=== PATIENT | male | born 1965 | race Caucasian/White ===

== ENCOUNTER → 2024-04-16 | Outpatient (CLI) | payer MEDICAID, SELFPAY ==
--- NOTE | 2024-04-16 13:30 | XR_ITS ---
Examination: MRI cervical spine without intravenous contrast Date and time of exam: April 16, 2024 at 1317 hrs. Indications: Right-sided neck pain radiating to the right shoulder beginning 3 months ago Technique: Multiple axial and sagittal sections of the cervical spine to been obtained. T2 weighted sagittal sections, TR 3, 270, TE 117 T1-weighted sagittal sections, TR 500, TE 11 T1-weighted axial sections, TR 607, TE 12, axial sections TR 18, TE 27 and T2 weighted transverse sections, TR 3920, TE 122. Findings: Patient motion significantly degrades scan image quality Patient requested ending the examination prior to completion of axial diagnostic images Moderate disc narrowing C6-C7 Diffuse cervical disc desiccation No cervical fracture Intact odontoid C6-C7 4 mm cervical disc bulge indenting the ventral margin cervical cord No localized enlargement cervical cord Impression: Limited study as above Consider repeat MRI cervical spine examination including axial images preceded by intravenous conscious sedation
== END | disposition home or self-care (01) ==
LOC: SMRI 13:05
PROVIDERS: PCP Physician Assistant Medical; Referring Provider Family Medicine; Visit Provider Family Medicine
DX: M47.22 Other spondylosis with radiculopathy, cervical region (principal)
CPT/HCPCS: 72141

== ENCOUNTER 2024-04-25 16:16 | Emergency (ER) | payer MEDICAID, SELFPAY ==
[2024-04-25 16:22] VITALS: BP 140/89; PULSE 118; RESP 19; TEMP 36.8; O2SAT 100
[2024-04-25 16:27] VITALS: BMI 40.8
--- NOTE | 2024-04-25 17:17 | PC.NURSE ---
called for pt from lobby/outside, no [id number]
--- NOTE | 2024-04-25 17:51 | PD.EDBACK ---
ED Back Injury Pain RME/HPI General Stated Complaint: BACK PAIN Time Seen by Provider: 04/25/24 16:43 Arrival date/time: 04/25/24 16:16 59-year-old male with a history of chronic lower back pain reports with complaints of severe back pain that radiates to the bilateral lower extremities. Patient states that he is on gabapentin and Flexeril and ibuprofen for pain. Patient states that he is out of the ibuprofen he tried the gabapentin and the Flexeril with no improvement of symptoms. He reports the pain is a burning sensation going down both legs causing difficulty in walking but he denies changes in bowel or bladder habits numbness tingling decreased range of motion or weakness of the lower extremities. Limitations: no limitations Related Data Home Medications ?Medication ?Instructions ?Recorded ?Confirmed baclofen 20 mg tablet 20 mg PO TID PRN Pain 12/31/20 12/31/20 Previous Rx's ?Medication ?Instructions ?Recorded naproxen 500 mg tablet (Naprosyn) 500 mg PO BID PRN pain #30 tabs 03/04/20 amoxicillin 875 mg-potassium 1 tab PO BID #20 tabs 12/30/20 clavulanate 125 mg tablet (Augmentin) baclofen 20 mg tablet 20 mg PO TID PRN pain #30 tabs 02/23/21 albuterol sulfate 90 mcg/actuation 2 puff inhalation QID PRN 03/14/21 aerosol inhaler shortness of breath or wheezing #8.5 grams azithromycin 250 mg tablet See Rx Instructions PO .COMPLEX #6 03/14/21 tabs dextromethorphan-guaifenesin 10 10 ml PO Q8H PRN cough #500 mL 03/31/21 mg-100 mg/5 mL oral liquid hydrocodone 5 mg-acetaminophen 325 1 tab PO BID #10 tabs 10/10/21 mg tablet naproxen 500 mg tablet (Naprosyn) 500 mg PO BID #30 tabs 10/10/21 hydrocodone 5 mg-acetaminophen 325 1 tab PO TID PRN pain #20 tabs 10/13/21 mg tablet hydrocodone 5 mg-acetaminophen 325 1 tab PO BID PRN pain #6 tabs 10/16/22 mg tablet ibuprofen 800 mg tablet 800 mg PO TID PRN pain #30 tabs 10/16/22 doxycycline monohydrate 100 mg 100 mg PO BID #14 caps 03/20/23 capsule apixaban 5 mg (74 tabs) tablets in 10 mg (2 x 5 mg (74 tabs)) PO BID 10/25/23 a dose pack #74 tabs prednisone 50 mg tablet 50 mg PO QDAY #7 tabs 10/25/23 methylprednisolone 4 mg tablets in See Rx Instructions .Route 04/25/24 a dose pack (Medrol (Dg)) .COMPLEX #21 tabs Allergies Allergy/AdvReac Type Severity Reaction Status Date / Time No Known Allergies Allergy Verified 10/25/23 18:12 Past Medical History Past Medical History CARDIAC: Positive Hypercholesterolemia and Deep Vein Thrombosis; Negative Cardiac Disorders or Congestive Heart Failure RESPIRATORY: Positive Pulmonary Embolism; Negative Chronic Obstructive Pulmonary Disease (COPD) or Asthma GENITOURINARY: Negative Renal Disease MUSCULOSKELETAL: Positive Degenerative Disk Disease ENDOCRINE: Positive Hypothyroidism; Negative Diabetes Mellitus Type 1 or Diabetes Mellitus Type 2 HEMATOLOGIC: Negative Sickle Cell Disease Social History SMOKING STATUS: Never smoker SUBSTANCE USE: does not use ED Exam General Limitations: Present no limitations General appearance: Present alert and in no apparent distress Chest Chest inspection: Present normal inspection and symmetric chest wall rise Respiratory Respiratory exam: Present normal lung sounds bilaterally Cardiovascular Cardiovascular exam: Present regular rate, normal rhythm and normal heart sounds Abdominal Exam Abdominal exam: Present soft and normal bowel sounds Extremities Exam Extremities exam: Present normal inspection and full ROM Back Exam Back exam: Present normal inspection, full ROM, tenderness (Approximately L4-L5 extending along sciatic nerve to mid thigh right side and mid buttock left side), paraspinal tenderness, straight leg raise (R) and straight leg raise (L); Absent CVA tenderness (R), CVA tenderness (L) or vertebral tenderness Neurological Exam Neurological exam: Present alert, oriented X3 and CN II-XII intact Psychiatric Psychiatric exam: Present normal affect and normal mood Skin Skin exam: Present warm, dry, intact and normal color Course Course Course Narrative: 59-year-old male with a history of chronic lower back pain bilateral lower extremity radiculopathy reports with complaints of worsening lower back pain. Patient states that current medication of Flexeril and gabapentin is not reducing the pain. Patient received a Decadron injection here in the emergency department and will be sent home with a short course of steroids and advised to avoid NSAIDs he is also advised to follow-up with his primary care provider. Patient stable nontoxic-appearing with stable vitals. Quality Measures none Orders Category Date Time Status Dexamethasone Inj [Decadron Inj] Med 04/25/24 17:50 Discontinued 10 mg IM X1 ONE Vital Signs Vital signs: Vital Signs Temperature 98.3 F 04/25/24 16:22 Pulse Rate 118 H 04/25/24 16:22 Respiratory Rate 19 04/25/24 16:22 Blood Pressure 140/89 H 04/25/24 16:22 Pulse Oximetry (%) 100 04/25/24 16:22 Oxygen Delivery Method Room Air 04/25/24 16:22 Back Pain / Injury Patient data External records reviewed:: None Clinical information provided by:: patient Social determinants that could affect healthcare access:: none Patient has the following chronic illnesses:: Chronic lower back pain How is presenting disease/condition affected by chronic disease/condition?: caused by Evaluation data The following diagnostics were reviewed and interpreted by me:: other (specify) (None) Lab and/or radiology exams considered but not ordered:: None Interpretation Summary: N/A Medications / Prescriptions Medications or Prescriptions considered but not ordered:: None Medication administrations:: Medication Administration History Discontinued Medications Dexamethasone Sodium Phosphate (Dexamethasone Sod Phos Inj 10 Mg/Ml Vial) 10 mg IM X1 ONE Stop: 04/25/24 17:51 As above Consultations Consultation(s) initiated? (list below): No Diagnosis Most likely diagnosis given after review of the tests above:: Chronic lower back pain Admission Indicated Admission indicated?: not indicated Admission Request Was there a request for admission?: No Disposition Plan Disposition Plan: Discharge Discharge Attestation Discharge Attestation: The patient and all family members were given an opportunity to ask questions and understood the discharge instructions. Discharge instructions specifically effects, indications for sooner follow up or return to the emergency department, and the expected course of current diagnosis. Patient condition: Stable Discharge Plan Plan Patient Disposition: HOME (Self Care) Prescriptions/Referrals Prescriptions/Med Rec: New methylprednisolone [Medrol (Dg)] 4 mg tablets,dose pack See Rx Instructions .ROUTE .COMPLEX Qty: 21 0RF Rx Instructions: TAKE DIRECTED ON PACK No Action naproxen [Naprosyn] 500 mg tablet 500 mg PO BID PRN (Reason: pain) Qty: 30 0RF amoxicillin-pot clavulanate [Augmentin] 875-125 mg tablet 1 tab PO BID Qty: 20 0RF baclofen 20 mg tablet 20 mg PO TID PRN (Reason: Pain) hydrocodone-acetaminophen 5-325 mg tablet 1 tab PO TID MDD 3 PRN (Reason: pain) Qty: 20 0RF baclofen 20 mg tablet 20 mg PO TID PRN (Reason: pain) Qty: 30 0RF azithromycin 250 mg tablet See Rx Instructions .ROUTE .COMPLEX Qty: 6 0RF Rx Instructions: For 250 mg dose pack: take 500 mg today (day 1), then 250 mg for 4 days (days 2-5) albuterol sulfate 90 mcg/actuation HFA aerosol inhaler 2 puff inhalation QID PRN (Reason: shortness of breath or wheezing) Qty: 8.5 0RF dextromethorphan-guaifenesin 10-100 mg/5 mL liquid 10 ml PO Q8H PRN (Reason: cough) Qty: 500 0RF naproxen [Naprosyn] 500 mg tablet 500 mg PO BID Qty: 30 0RF hydrocodone-acetaminophen 5-325 mg tablet 1 tab PO BID MDD 2 Qty: 10 0RF ibuprofen 800 mg tablet 800 mg PO TID PRN (Reason: pain) Qty: 30 0RF hydrocodone-acetaminophen 5-325 mg tablet 1 tab PO BID MDD 10 PRN (Reason: pain) Qty: 6 0RF prednisone 50 mg tablet 50 mg PO QDAY Qty: 7 0RF doxycycline monohydrate 100 mg capsule 100 mg PO BID Qty: 14 0RF apixaban 5 mg (74 tabs) tablets,dose pack 10 mg PO BID Qty: 74 0RF Rx Instructions: 2 tablets twice a day for 1 week and then 5 mg once a day Problem List Clinical Impression: Chronic back pain Patient/Caregiver Discharge Instructions Education Materials: ED Back Care Tips Additional Instructions: Do not take ibuprofen or naproxen or Advil or Aleve or Motrin or aspirin for the next 10 days, take the steroid prescribed to you along with the Flexeril for your back pain follow-up with your primary care provider as needed Print Language: Portuguese Stand Alone Forms: Jos[facility] Award Info., Patient Portal Info Letter
[2024-04-25] MEDS: DEXAMETHASONE SOD PHOS INJ 10 MG/ML VIAL IM (18:15)
== END 2024-04-25 18:43 | disposition home or self-care (01) ==
LOC: SERX 18:18
PROVIDERS: Emergency Provider Emergency Medicine
DX: G89.29 Other chronic pain (principal); M54.50 Low back pain, unspecified
CPT/HCPCS: 96372; 99283; J1100

== ENCOUNTER → 2024-05-18 | Outpatient (CLI) | payer MEDICAID, SELFPAY ==
--- NOTE | 2024-05-18 14:30 | XR_ITS ---
Examination: MRI lumbar spine without contrast Date and time of exam: May 18, 2024 1545 hours Comparison March 21, 2021 INDICATIONS: Low back pain years, more severe the last year radiating down both legs Technique: Multiple MRI axial and sagittal sections lumbar spine. Sagittal T2-weighted images, TR 3500, TE 118 T1 weighted transverse sections, TR 688 T8.5, T2-weighted sagittal sections T1 weighted sagittal sections TR 621, TE 30 T2 axial sections, TR 4, 190, TE 84. Findings: Minimal anterolisthesis L4 on L5, 3 mm No lumbar fracture Mild disc narrowing L5-S1 No spondylolisthesis L5-S1 no disc protrusion L4-L5 3 mm central lumbar disc bulge L3-L4 2 mm central lumbar disc bulge L2-L3 no disc protrusion L1-L2 no disc protrusion IMPRESSION: Small lumbar disc bulges as above
== END | disposition home or self-care (01) ==
PROVIDERS: PCP Physician Assistant Medical; Referring Provider Family Medicine; Visit Provider Family Medicine
DX: M51.369 Other intervertebral disc degeneration, lumbar region without mention of lumbar back pain or lower extremity pain (principal)
CPT/HCPCS: 72148

== ENCOUNTER 2024-11-22 22:30 | Emergency (ER) | payer MEDICAID, SELFPAY ==
[2024-11-22 22:30] VITALS: BMI 38.2
--- NOTE | 2024-11-22 22:40 | XR_ITS ---
Examination: Duplex scan of the lower extremity, unilateral right Date and time of exam: November 22, 2024, 11:15 p.m. INDICATIONS: Right leg pain beginning 2 days ago, history blood clots Technique: Duplex scan of the extremity veins using B-mode/grayscale imaging and Doppler spectral analysis and color flow Attention is directed to internal echogenicity, compression and augmentation involving these veins, color flow assessment, spectral analysis Findings: Suspicious for occlusive thrombus in the right peroneal vein No diagnostic visualization of the right posterior tibial vein IMPRESSION: No flow seen in the right peroneal vein suspicious for thrombus Recommend repeating the venogram study in the a.m. with a different technologist
[2024-11-22 22:54] VITALS: BP 113/70; PULSE 55; RESP 18; TEMP 37.2; O2SAT 97
--- NOTE | 2024-11-22 23:09 | PD.EDBACK ---
ED Back Injury Pain RME/HPI General Chief Complaint: Extremity Injury, Lower Stated Complaint: SCIATIC PAIN RT LEG Time Seen by Provider: 11/22/24 23:04 Arrival date/time: 11/22/24 22:30 59M with history of DVT/PE presents to ED with low back pain that radiates down to RLE. Patient is currently on 5 mg Eliquis BID, which patient states he's complaint with. Limitations: no limitations Related Data Home Medications ?Medication ?Instructions ?Recorded ?Confirmed baclofen 20 mg tablet 20 mg PO TID PRN Pain 12/31/20 12/31/20 Previous Rx's ?Medication ?Instructions ?Recorded naproxen 500 mg tablet (Naprosyn) 500 mg PO BID PRN pain #30 tabs 03/04/20 amoxicillin 875 mg-potassium 1 tab PO BID #20 tabs 12/30/20 clavulanate 125 mg tablet (Augmentin) baclofen 20 mg tablet 20 mg PO TID PRN pain #30 tabs 02/23/21 albuterol sulfate 90 mcg/actuation 2 puff inhalation QID PRN 03/14/21 aerosol inhaler shortness of breath or wheezing #8.5 grams azithromycin 250 mg tablet See Rx Instructions PO .COMPLEX #6 03/14/21 tabs dextromethorphan-guaifenesin 10 10 ml PO Q8H PRN cough #500 mL 03/31/21 mg-100 mg/5 mL oral liquid hydrocodone 5 mg-acetaminophen 325 1 tab PO BID #10 tabs 10/10/21 mg tablet naproxen 500 mg tablet (Naprosyn) 500 mg PO BID #30 tabs 10/10/21 hydrocodone 5 mg-acetaminophen 325 1 tab PO TID PRN pain #20 tabs 10/13/21 mg tablet hydrocodone 5 mg-acetaminophen 325 1 tab PO BID PRN pain #6 tabs 10/16/22 mg tablet ibuprofen 800 mg tablet 800 mg PO TID PRN pain #30 tabs 10/16/22 doxycycline monohydrate 100 mg 100 mg PO BID #14 caps 03/20/23 capsule apixaban 5 mg (74 tabs) tablets in 10 mg (2 x 5 mg (74 tabs)) PO BID 10/25/23 a dose pack #74 tabs prednisone 50 mg tablet 50 mg PO QDAY #7 tabs 10/25/23 methylprednisolone 4 mg tablets in See Rx Instructions .Route 04/25/24 a dose pack (Medrol (Dg)) .COMPLEX #21 tabs Allergies Allergy/AdvReac Type Severity Reaction Status Date / Time No Known Allergies Allergy Verified 10/25/23 18:12 Review of Systems Review of Systems Systems Reviewed: All systems reviewed, normal except as documented Musculoskeletal Musculoskeletal: Reports as per HPI, Reports back pain and Reports radiating pain into limb Past Medical History Past Medical History CARDIAC: Positive Hypercholesterolemia and Deep Vein Thrombosis; Negative Cardiac Disorders or Congestive Heart Failure RESPIRATORY: Positive Pulmonary Embolism; Negative Chronic Obstructive Pulmonary Disease (COPD) or Asthma GENITOURINARY: Negative Renal Disease MUSCULOSKELETAL: Positive Degenerative Disk Disease ENDOCRINE: Positive Hypothyroidism; Negative Diabetes Mellitus Type 1 or Diabetes Mellitus Type 2 HEMATOLOGIC: Negative Sickle Cell Disease Social History SMOKING STATUS: Current every day smoker SUBSTANCE USE: does not use ED Exam General Limitations: Present no limitations General appearance: Present alert and in no apparent distress Head Head exam: Present atraumatic Neck Neck exam: Present normal inspection, full ROM and trachea midline Chest Chest inspection: Present normal inspection and symmetric chest wall rise Neurological Exam Neurological exam: Present alert and oriented X3 Psychiatric Psychiatric exam: Present normal affect and normal mood Skin Skin exam: Present warm, dry, intact and normal color Course Quality Measures none Orders Category Date Time Status US venous doppler LE RT Stat Exams 11/22/24 22:40 Completed Diazepam [Valium] Med 11/22/24 23:04 Discontinued 10 mg PO X1 ONE Morphine Oral LIQUID Med 11/23/24 00:08 Once 10 mg PO X1 ONE Vital Signs Vital signs: Vital Signs Temperature 98.9 F 11/22/24 22:54 Pulse Rate 55 L 11/22/24 22:54 Respiratory Rate 18 11/22/24 22:54 Blood Pressure 113/70 11/22/24 22:54 Pulse Oximetry (%) 97 11/22/24 22:54 Oxygen Delivery Method Room Air 11/22/24 22:54 O2 at 97% on RA and WNLs Back Pain / Injury MDM Narrative MDM Narrative:: 59M with history of DVT/PE presents to ED with low back pain that radiates down to RLE. Patient is currently on 5 mg Eliquis BID, which patient states he's complaint with. Physical exam reveals uncomfortable-appearing male. Patient is afebrile and alert. US possible DVT, with recommendation to return in AM for repeat US. Valium improved muscle spasms, but there's still pain. Patient would like Toradol, however given patient on Eliquis, will given morphine. Patient data External records reviewed:: [facility] previous records Clinical information provided by:: patient Social determinants that could affect healthcare access:: none Patient has the following chronic illnesses:: DVT How is presenting disease/condition affected by chronic disease/condition?: exacerbated by Evaluation data The following diagnostics were reviewed and interpreted by me:: radiology exam(s) Lab and/or radiology exams considered but not ordered:: ordered Interpretation Summary: above Medications / Prescriptions Medications or Prescriptions considered but not ordered:: ordered Medication administrations:: Medication Administration History Morphine Sulfate (Morphine Sulf Liqd 10 Mg/5 Ml Udc) 10 mg PO X1 ONE Stop: 11/23/24 00:09 Discontinued Medications Diazepam (Diazepam 5 Mg Tablet) 10 mg PO X1 ONE Stop: 11/22/24 23:05 Last Admin: 11/22/24 23:16 Dose: 10 mg Documented By: AMANDA gates Consultations Consultation(s) initiated? (list below): No Diagnosis Differential diagnosis back pain/injury: lumbar radiculopathy, sciatica, strain of lumbar region, renal colic, pyelonephritis, thoracic back pain, AAA, discitis and other (DVT, leg pain) Most likely diagnosis given after review of the tests above:: leg pain Admission Indicated Admission indicated?: not indicated Admission Request Was there a request for admission?: No Disposition Plan Disposition Plan: Discharge Discharge Attestation Discharge Attestation: The patient and all family members were given an opportunity to ask questions and understood the discharge instructions. Discharge instructions specifically effects, indications for sooner follow up or return to the emergency department, and the expected course of current diagnosis. Patient condition: Stable Discharge Plan Plan Patient Disposition: HOME (Self Care) Discharge Disposition comment: Stable Prescriptions/Referrals Prescriptions/Med Rec: No Action naproxen [Naprosyn] 500 mg tablet 500 mg PO BID PRN (Reason: pain) Qty: 30 0RF amoxicillin-pot clavulanate [Augmentin] 875-125 mg tablet 1 tab PO BID Qty: 20 0RF baclofen 20 mg tablet 20 mg PO TID PRN (Reason: Pain) hydrocodone-acetaminophen 5-325 mg tablet 1 tab PO TID MDD 3 PRN (Reason: pain) Qty: 20 0RF baclofen 20 mg tablet 20 mg PO TID PRN (Reason: pain) Qty: 30 0RF azithromycin 250 mg tablet See Rx Instructions .ROUTE .COMPLEX Qty: 6 0RF Rx Instructions: For 250 mg dose pack: take 500 mg today (day 1), then 250 mg for 4 days (days 2-5) albuterol sulfate 90 mcg/actuation HFA aerosol inhaler 2 puff inhalation QID PRN (Reason: shortness of breath or wheezing) Qty: 8.5 0RF dextromethorphan-guaifenesin 10-100 mg/5 mL liquid 10 ml PO Q8H PRN (Reason: cough) Qty: 500 0RF naproxen [Naprosyn] 500 mg tablet 500 mg PO BID Qty: 30 0RF hydrocodone-acetaminophen 5-325 mg tablet 1 tab PO BID MDD 2 Qty: 10 0RF ibuprofen 800 mg tablet 800 mg PO TID PRN (Reason: pain) Qty: 30 0RF hydrocodone-acetaminophen 5-325 mg tablet 1 tab PO BID MDD 10 PRN (Reason: pain) Qty: 6 0RF prednisone 50 mg tablet 50 mg PO QDAY Qty: 7 0RF methylprednisolone [Medrol (Dg)] 4 mg tablets,dose pack See Rx Instructions .ROUTE .COMPLEX Qty: 21 0RF Rx Instructions: TAKE DIRECTED ON PACK doxycycline monohydrate 100 mg capsule 100 mg PO BID Qty: 14 0RF apixaban 5 mg (74 tabs) tablets,dose pack 10 mg PO BID Qty: 74 0RF Rx Instructions: 2 tablets twice a day for 1 week and then 5 mg once a day Referrals: Kylah Franklin PA-C [Primary Care Provider] - In 1 week Problem List Clinical Impression: Leg pain Patient/Caregiver Discharge Instructions Education Materials: ED Myalgias Additional Instructions: Please follow-up with PCP within 24-48 hours and return immediately if symptoms worsen. Return in AM for repeat US. Print Language: [place] Stand Alone Forms: Patient Portal Info Letter OSIEL/ROSI Supervising Physician OSIEL/ROSI Supervising Physician: Dr. Simmons
[2024-11-22] MEDS: DIAZEPAM 5 MG TABLET 10 MG PO (23:16)
[2024-11-23] MEDS: MORPHINE SULF LIQD 10 MG/5 ML UDC PO (00:18)
== END 2024-11-23 00:21 | disposition home or self-care (01) ==
PROVIDERS: Emergency Provider Emergency Medicine; PCP Physician Assistant Medical
DX: M79.604 Pain in right leg (principal)
CPT/HCPCS: 93971; 99283; A9270

== ENCOUNTER 2024-11-24 19:16 | Emergency (ER) | payer MEDICAID, SELFPAY ==
[2024-11-24 19:17] VITALS: BMI 38.2
--- NOTE | 2024-11-24 20:03 | XR_ITS ---
Examination: Duplex scan of the lower extremity, unilateral right complete Date and time of exam: November 24, 2024, 0851 hours INDICATIONS: Right leg swelling beginning 4 days ago, no flow in the right popliteal vein on venogram November 22, 2024 Technique: Duplex scan of the extremity veins using B-mode/grayscale imaging and Doppler spectral analysis and color flow Attention is directed to internal echogenicity, compression and augmentation involving these veins, color flow assessment, spectral analysis Findings: Major deep venous structures in the extremity demonstrate normal course and caliber. There is no evidence of deep vein thrombosis. Normal color flow and spectral analysis Impression: Negative for DVT..
--- NOTE | 2024-11-24 20:03 | PD.EDRME ---
Rapid Medical Screening Exam RME Arrival date/time: 11/24/24 19:16 59M with history of DVT/PE presents to ED with low back pain that radiates down to RLE. Patient is currently on 5 mg Eliquis BID, which patient states he's complaint with. Patient was here several days ago with US stating possible new RLE DVT while on Eliquis. Patient was told to come back for repeat US based on radiologist's recommendation. Patient also wants some Valium for the muscle spasms. Chief Complaint: Extremity Injury, Lower
[2024-11-24 20:05] VITALS: BP 156/84; PULSE 60; RESP 18; TEMP 37.1; O2SAT 97
[2024-11-24] MEDS: DIAZEPAM 5 MG TABLET 10 MG PO (20:33)
[2024-11-24 20:35] LABS: Basophils # (Auto) 0.1 Thou/mm3 (0.0-0.2); Basophils % (Auto) 1 % (0-2.5); Eosinophils # (Auto) 0.5 Thou/mm3 (0.0-0.5); Eosinophils % (Auto) 6 % (0-10); Hematocrit 45.2 % (41.0-53.0); Hemoglobin 15.7 g/dL (13.5-16.0); Immature Granulocytes Auto 0.02 Thou/mm3 (0.00-0.00); Lymphocytes # (Auto) 2.6 Thou/mm3 (1.0-4.8); Lymphocytes % (Auto) 34 % (10-50); Mean Corpuscular HGB Conc 34.7 g/dl (31.0-37.0); Mean Corpuscular Hemoglobin 30.6 pg (25.0-35.0); Mean Corpuscular Volume 88 fL (80-100); Monocytes # (Auto) 0.5 Thou/mm3 (0.0-0.8); Monocytes % (Auto) 7 % (0-12); Neutrophils # (Auto) 3.9 Thou/mm3 (1.8-7.7); Neutrophils % (Auto) 52 % (37-80); Nucleated Red Blood Cell # 0.00 Thou/mm3 (0.00-0.00); Nucleated Red Blood Cell % 0 /100 WBC (0); Platelet Count 190 Thou/mm3 (140-440); RDW Standard Deviation 40.8 fL (35.1-43.9); Red Blood Count 5.13 Miln/mm3 (4.50-5.90); White Blood Count 7.7 Thou/mm3 (3.8-10.6)
[2024-11-24 20:47] LABS: INR 1.0 (0.9-1.3); Partial Thromboplastin Time 28.1 Seconds (22.0-36.0); Prothrombin Time 11.1 Seconds (9.0-12.2)
[2024-11-24 20:56] LABS: Alanine Aminotransferase 26 U/L (10-49); Albumin, Serum 4.5 gm/dL (3.5-5.0); Albumin/Globulin Ratio 1.5 (1.2-2.2); Alkaline Phosphatase 69 U/L (46-116); Anion Gap 6 (7-16); Aspartate Amino Transferase 29 U/L (0-34); BUN/Creatinine Ratio 5 Ratio (12-20); Bilirubin,Total 0.5 mg/dL (0.3-1.2); Blood Urea Nitrogen 6 mg/dL (9-23); Calcium 10.0 mg/dL (8.3-10.6); Calcium (Corrected) 10.0 mg/dL (8.5-10.1); Carbon Dioxide 28.3 mMol/L (20.0-31.0); Chloride 105 mMol/L (98-107); Creatinine (Component) 1.2 mg/dL (0.6-1.3); Estimated Creatinine Clearance 96.6 mL/min (>60); Globulin 3.0 gm/dL (2.3-3.5); Glucose 89 mg/dL (74-106); Osmolality,Calculated 274 (275-295); Potassium 4.0 mMol/L (3.4-5.1); Sodium 139 mMol/L (136-145); Total Protein 7.5 gm/dL (5.7-8.2); eGFR > 60 See Note
--- NOTE | 2024-11-24 22:18 | PD.EDLOWEX ---
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 Patient is currently on 5 mg Eliquis BID, which patient states he's complaint with. Patient was here several days ago with US stating possible new RLE DVT while on Eliquis. Patient was told to come back for repeat US based on radiologist's recommendation. Patient also wants some Valium for the muscle spasms. Patient denies any trauma denies any other complaints no medication was taken prior to ER visit. Related Data Home Medications ?Medication ?Instructions ?Recorded ?Confirmed baclofen 20 mg tablet 20 mg PO TID PRN Pain 12/31/20 12/31/20 Previous Rx's ?Medication ?Instructions ?Recorded naproxen 500 mg tablet (Naprosyn) 500 mg PO BID PRN pain #30 tabs 03/04/20 amoxicillin 875 mg-potassium 1 tab PO BID #20 tabs 12/30/20 clavulanate 125 mg tablet (Augmentin) baclofen 20 mg tablet 20 mg PO TID PRN pain #30 tabs 02/23/21 albuterol sulfate 90 mcg/actuation 2 puff inhalation QID PRN 03/14/21 aerosol inhaler shortness of breath or wheezing #8.5 grams azithromycin 250 mg tablet See Rx Instructions PO .COMPLEX #6 03/14/21 tabs dextromethorphan-guaifenesin 10 10 ml PO Q8H PRN cough #500 mL 03/31/21 mg-100 mg/5 mL oral liquid hydrocodone 5 mg-acetaminophen 325 1 tab PO BID #10 tabs 10/10/21 mg tablet naproxen 500 mg tablet (Naprosyn) 500 mg PO BID #30 tabs 10/10/21 hydrocodone 5 mg-acetaminophen 325 1 tab PO TID PRN pain #20 tabs 10/13/21 mg tablet hydrocodone 5 mg-acetaminophen 325 1 tab PO BID PRN pain #6 tabs 10/16/22 mg tablet ibuprofen 800 mg tablet 800 mg PO TID PRN pain #30 tabs 10/16/22 doxycycline monohydrate 100 mg 100 mg PO BID #14 caps 03/20/23 capsule apixaban 5 mg (74 tabs) tablets in 10 mg (2 x 5 mg (74 tabs)) PO BID 10/25/23 a dose pack #74 tabs prednisone 50 mg tablet 50 mg PO QDAY #7 tabs 10/25/23 methylprednisolone 4 mg tablets in See Rx Instructions .Route 04/25/24 a dose pack (Medrol (Dg)) .COMPLEX #21 tabs Allergies Allergy/AdvReac Type Severity Reaction Status Date / Time No Known Allergies Allergy Verified 10/25/23 18:12 Review of Systems Review of Systems Narrative Review of Systems: Review of system reviewed and within normal limits except mentioned in HPI ED Exam Narrative Physical exam: VITAL SIGNS: Reviewed. GENERAL APPEARANCE: Alert and interactive, follows commands, no acute distress, HEAD AND FACE: Non-traumatic. ENT: PERRL, pink conjunctivitis, eyelid no trauma, Mucous membrane moist. NECK: Supple, nontender, no nuchal rigidity. CHEST: No tenderness, no crepitus, no paradoxical movement, no retractions. LUNGS: Clear, well ventilated, symmetric, no rales, no wheezing, no ronchi, no stridor, good breath sounds bilaterally. HEART: Regular rate, regular rhythm, no murmur, no gallops. ABDOMEN: Soft, positive bowel sounds, nondistended, no guarding, nontender, no rebound, no masses, RECTAL: Deferred. GENITAL: Deferred. NEUROLOGICAL: Gross motor function intact sensory function intact, Appropriate for age. MUSCULOSKELETAL: low back nontender, full range of motion. EXTREMITIES: Left lower extremity tenderness, mild swelling, full range of motion. No redness no skin breakdown distal neurovascular status intact. SKIN: Color pink, dry, no rash, no lacerations, no abrasions, no contusions. LYMPHATICS: Deferred. Course Quality Measures none Orders Category Date Time Status US venous doppler LE RT Stat Exams 11/24/24 20:03 Completed CBC Stat Lab 11/24/24 20:23 Completed CMP [Comprehensive Metabolic Panel] Stat Lab 11/24/24 20:23 Completed INR [Prothrombin Time with INR] Stat Lab 11/24/24 20:23 Completed PTT [Partial Thromboplastin Time] Stat Lab 11/24/24 20:23 Completed Diazepam [Valium] Med 11/24/24 20:03 Discontinued 10 mg PO X1 ONE Morphine* Inj Med 11/24/24 22:15 Discontinued 4 mg IM X1 ONE Vital Signs Vital signs: Vital Signs Temperature 98.8 F 11/24/24 20:05 Pulse Rate 60 11/24/24 20:05 Respiratory Rate 18 11/24/24 20:05 Blood Pressure 156/84 H 11/24/24 20:05 Pulse Oximetry (%) 97 11/24/24 20:05 Oxygen Delivery Method Room Air 11/24/24 20:05 Extremity Injury, Lower MDM Narrative [facility] Narrative:: 59M with history of DVT/PE presents to ED with low back pain that radiates down to RLE. Patient is currently on 5 mg Eliquis BID, which patient states he's complaint with. Patient was here several days ago with US stating possible new RLE DVT while on Eliquis. Patient was told to come back for repeat US based on radiologist's recommendation. Patient also wants some Valium for the muscle spasms. Patient denies any trauma denies any other complaints no medication was taken prior to ER visit. Laboratory workup all came back unremarkable. Ultrasound of the lower extremities negative for DVT. Patient's results discussed with him. Patient stable for discharge home Patient data External records reviewed:: None Clinical information provided by:: patient Social determinants that could affect healthcare access:: none Patient has the following chronic illnesses:: None How is presenting disease/condition affected by chronic disease/condition?: no chronic disease Evaluation data The following diagnostics were reviewed and interpreted by me:: lab results and radiology exam(s) Lab and/or radiology exams considered but not ordered:: None Interpretation Summary: See [facility] Medications / Prescriptions Medications or Prescriptions considered but not ordered:: None Medication administrations:: Medication Administration History Discontinued Medications Diazepam (Diazepam 5 Mg Tablet) 10 mg PO X1 ONE Stop: 11/24/24 20:04 Last Admin: 11/24/24 20:33 Dose: 10 mg Documented By: Morphine Sulfate (Morphine Sulf Inj 4 Mg/Ml Vial) 4 mg IM X1 ONE Stop: 11/24/24 22:16 Morphine IM and Valium p.o. Consultations Consultation(s) initiated? (list below): No Diagnosis Extremity Injury, Lower Differential Diagnosis: other (Leg swelling, DVT, lymphedema) Most likely diagnosis given after review of the tests above:: Leg pain Admission Indicated Admission indicated?: not indicated Admission Request Was there a request for admission?: No Disposition Plan Disposition Plan: Discharge Discharge Attestation Discharge Attestation: The patient and all family members were given an opportunity to ask questions and understood the discharge instructions. Discharge instructions specifically effects, indications for sooner follow up or return to the emergency department, and the expected course of current diagnosis. Patient condition: Stable Discharge Plan Plan Patient Disposition: HOME (Self Care) Discharge Disposition comment: Stable Prescriptions/Referrals Prescriptions/Med Rec: No Action naproxen [Naprosyn] 500 mg tablet 500 mg PO BID PRN (Reason: pain) Qty: 30 0RF amoxicillin-pot clavulanate [Augmentin] 875-125 mg tablet 1 tab PO BID Qty: 20 0RF baclofen 20 mg tablet 20 mg PO TID PRN (Reason: Pain) hydrocodone-acetaminophen 5-325 mg tablet 1 tab PO TID MDD 3 PRN (Reason: pain) Qty: 20 0RF baclofen 20 mg tablet 20 mg PO TID PRN (Reason: pain) Qty: 30 0RF azithromycin 250 mg tablet See Rx Instructions .ROUTE .COMPLEX Qty: 6 0RF Rx Instructions: For 250 mg dose pack: take 500 mg today (day 1), then 250 mg for 4 days (days 2-5) albuterol sulfate 90 mcg/actuation HFA aerosol inhaler 2 puff inhalation QID PRN (Reason: shortness of breath or wheezing) Qty: 8.5 0RF dextromethorphan-guaifenesin 10-100 mg/5 mL liquid 10 ml PO Q8H PRN (Reason: cough) Qty: 500 0RF naproxen [Naprosyn] 500 mg tablet 500 mg PO BID Qty: 30 0RF hydrocodone-acetaminophen 5-325 mg tablet 1 tab PO BID MDD 2 Qty: 10 0RF ibuprofen 800 mg tablet 800 mg PO TID PRN (Reason: pain) Qty: 30 0RF hydrocodone-acetaminophen 5-325 mg tablet 1 tab PO BID MDD 10 PRN (Reason: pain) Qty: 6 0RF prednisone 50 mg tablet 50 mg PO QDAY Qty: 7 0RF methylprednisolone [Medrol (Dg)] 4 mg tablets,dose pack See Rx Instructions .ROUTE .COMPLEX Qty: 21 0RF Rx Instructions: TAKE DIRECTED ON PACK doxycycline monohydrate 100 mg capsule 100 mg PO BID Qty: 14 0RF apixaban 5 mg (74 tabs) tablets,dose pack 10 mg PO BID Qty: 74 0RF Rx Instructions: 2 tablets twice a day for 1 week and then 5 mg once a day Referrals: Kylah Franklin PA-C [Primary Care Provider] - In 1 week Problem List Clinical Impression: Leg pain Patient/Caregiver Discharge Instructions Discharge Activity: activity as tolerated Education Materials: Medicine for Pain Additional Instructions: Thank you for the opportunity for serving you today. You are stable for discharged . You are advised to: Follow-up with your PCP in 1 to 2 days Return to ED for worsening of symptoms Increase oral fluids Take [id number] Tylenol or Motrin as needed for pain Print Language: Estonian Stand Alone Forms: Josiane Award Info., Patient Portal Info Letter PA/ROSI Supervising Physician OSIEL/ROSI Supervising Physician: MD Charlene
[2024-11-24 22:47] VITALS: BP 140/82; PULSE 63; RESP 18; TEMP 37.1; O2SAT 97
[2024-11-24] MEDS: MORPHINE SULF INJ 4 MG/ML VIAL IM (22:52)
== END 2024-11-24 23:15 | disposition home or self-care (01) ==
PROVIDERS: Physician Assistant; Emergency Provider Emergency Medicine; PCP Physician Assistant Medical
DX: M79.604 Pain in right leg (principal); M79.89 Other specified soft tissue disorders; M54.50 Low back pain, unspecified; Z86.711 Personal history of pulmonary embolism; Z86.718 Personal history of other venous thrombosis and embolism
CPT/HCPCS: 36415; 80053; 85025; 85610; 85730; 93971; 96372; 99283; J2270; A9270

== ENCOUNTER 2024-11-27 13:29 | Emergency (ER) | payer MEDICAID, SELFPAY ==
[2024-11-27 14:43] VITALS: BP 144/82; PULSE 60; RESP 20; TEMP 37; O2SAT 98; BMI 38.2
--- NOTE | 2024-11-27 14:51 | PD.EDADULT ---
ED General RME/HPI General Chief complaint: General Adult/Misc Complain Stated complaint: CRAMPS IN HAMSTRINGS, SCIATICA PAIN Time Seen by Provider: 11/27/24 14:50 Arrival date/time: 11/27/24 13:29 Related Data Home Medications ?Medication ?Instructions ?Recorded ?Confirmed baclofen 20 mg tablet 20 mg PO TID PRN Pain 12/31/20 12/31/20 Previous Rx's ?Medication ?Instructions ?Recorded naproxen 500 mg tablet (Naprosyn) 500 mg PO BID PRN pain #30 tabs 03/04/20 amoxicillin 875 mg-potassium 1 tab PO BID #20 tabs 12/30/20 clavulanate 125 mg tablet (Augmentin) baclofen 20 mg tablet 20 mg PO TID PRN pain #30 tabs 02/23/21 albuterol sulfate 90 mcg/actuation 2 puff inhalation QID PRN 03/14/21 aerosol inhaler shortness of breath or wheezing #8.5 grams azithromycin 250 mg tablet See Rx Instructions PO .COMPLEX #6 03/14/21 tabs dextromethorphan-guaifenesin 10 10 ml PO Q8H PRN cough #500 mL 03/31/21 mg-100 mg/5 mL oral liquid hydrocodone 5 mg-acetaminophen 325 1 tab PO BID #10 tabs 10/10/21 mg tablet naproxen 500 mg tablet (Naprosyn) 500 mg PO BID #30 tabs 10/10/21 hydrocodone 5 mg-acetaminophen 325 1 tab PO TID PRN pain #20 tabs 10/13/21 mg tablet hydrocodone 5 mg-acetaminophen 325 1 tab PO BID PRN pain #6 tabs 10/16/22 mg tablet ibuprofen 800 mg tablet 800 mg PO TID PRN pain #30 tabs 10/16/22 doxycycline monohydrate 100 mg 100 mg PO BID #14 caps 03/20/23 capsule apixaban 5 mg (74 tabs) tablets in 10 mg (2 x 5 mg (74 tabs)) PO BID 10/25/23 a dose pack #74 tabs prednisone 50 mg tablet 50 mg PO QDAY #7 tabs 10/25/23 methylprednisolone 4 mg tablets in See Rx Instructions .Route 04/25/24 a dose pack (Medrol (Dg)) .COMPLEX #21 tabs Allergies Allergy/AdvReac Type Severity Reaction Status Date / Time No Known Allergies Allergy Verified 11/27/24 13:32 Course Vital Signs Vital signs: Vital Signs Temperature 98.6 F 11/27/24 14:43 Pulse Rate 60 11/27/24 14:43 Respiratory Rate 20 11/27/24 14:43 Blood Pressure 144/82 H 11/27/24 14:43 Pulse Oximetry (%) 98 11/27/24 14:43 Oxygen Delivery Method Room Air 11/27/24 14:43 Discharge Plan Prescriptions/Referrals Prescriptions/Med Rec: No Action naproxen [Naprosyn] 500 mg tablet 500 mg PO BID PRN (Reason: pain) Qty: 30 0RF amoxicillin-pot clavulanate [Augmentin] 875-125 mg tablet 1 tab PO BID Qty: 20 0RF baclofen 20 mg tablet 20 mg PO TID PRN (Reason: Pain) hydrocodone-acetaminophen 5-325 mg tablet 1 tab PO TID MDD 3 PRN (Reason: pain) Qty: 20 0RF baclofen 20 mg tablet 20 mg PO TID PRN (Reason: pain) Qty: 30 0RF azithromycin 250 mg tablet See Rx Instructions .ROUTE .COMPLEX Qty: 6 0RF Rx Instructions: For 250 mg dose pack: take 500 mg today (day 1), then 250 mg for 4 days (days 2-5) albuterol sulfate 90 mcg/actuation HFA aerosol inhaler 2 puff inhalation QID PRN (Reason: shortness of breath or wheezing) Qty: 8.5 0RF dextromethorphan-guaifenesin 10-100 mg/5 mL liquid 10 ml PO Q8H PRN (Reason: cough) Qty: 500 0RF naproxen [Naprosyn] 500 mg tablet 500 mg PO BID Qty: 30 0RF hydrocodone-acetaminophen 5-325 mg tablet 1 tab PO BID MDD 2 Qty: 10 0RF ibuprofen 800 mg tablet 800 mg PO TID PRN (Reason: pain) Qty: 30 0RF hydrocodone-acetaminophen 5-325 mg tablet 1 tab PO BID MDD 10 PRN (Reason: pain) Qty: 6 0RF prednisone 50 mg tablet 50 mg PO QDAY Qty: 7 0RF methylprednisolone [Medrol (Dg)] 4 mg tablets,dose pack See Rx Instructions .ROUTE .COMPLEX Qty: 21 0RF Rx Instructions: TAKE DIRECTED ON PACK doxycycline monohydrate 100 mg capsule 100 mg PO BID Qty: 14 0RF apixaban 5 mg (74 tabs) tablets,dose pack 10 mg PO BID Qty: 74 0RF Rx Instructions: 2 tablets twice a day for 1 week and then 5 mg once a day Patient/Caregiver Discharge Instructions Print Language: Irish
--- NOTE | 2024-11-27 14:58 | PD.EDADULT ---
ED General RME/HPI General Chief complaint: General Adult/Misc Complain Stated complaint: CRAMPS IN HAMSTRINGS, SCIATICA PAIN Time Seen by Provider: 11/27/24 14:50 Arrival date/time: 11/27/24 13:29 CC: Acute on chronic low back pain HPI patient is had a chronic low back pain going on for years but spasms in his right leg and sciatic type pain for the past year and a half this episode started approximately 2 hours ago after getting out of a car. Patient seen here recently for the same complaint. Patient is waiting for outpatient referrals to back specialist but has nothing scheduled at this time. He is being seen by pain management. Currently patient denies bowel or bladder symptoms saddle saddle anesthesia but numbness or tingling in the tips of his toes. Related Data Home Medications ?Medication ?Instructions ?Recorded ?Confirmed baclofen 20 mg tablet 20 mg PO TID PRN Pain 12/31/20 12/31/20 Previous Rx's ?Medication ?Instructions ?Recorded naproxen 500 mg tablet (Naprosyn) 500 mg PO BID PRN pain #30 tabs 03/04/20 amoxicillin 875 mg-potassium 1 tab PO BID #20 tabs 12/30/20 clavulanate 125 mg tablet (Augmentin) baclofen 20 mg tablet 20 mg PO TID PRN pain #30 tabs 02/23/21 albuterol sulfate 90 mcg/actuation 2 puff inhalation QID PRN 03/14/21 aerosol inhaler shortness of breath or wheezing #8.5 grams azithromycin 250 mg tablet See Rx Instructions PO .COMPLEX #6 03/14/21 tabs dextromethorphan-guaifenesin 10 10 ml PO Q8H PRN cough #500 mL 03/31/21 mg-100 mg/5 mL oral liquid hydrocodone 5 mg-acetaminophen 325 1 tab PO BID #10 tabs 10/10/21 mg tablet naproxen 500 mg tablet (Naprosyn) 500 mg PO BID #30 tabs 10/10/21 hydrocodone 5 mg-acetaminophen 325 1 tab PO TID PRN pain #20 tabs 10/13/21 mg tablet hydrocodone 5 mg-acetaminophen 325 1 tab PO BID PRN pain #6 tabs 10/16/22 mg tablet ibuprofen 800 mg tablet 800 mg PO TID PRN pain #30 tabs 10/16/22 doxycycline monohydrate 100 mg 100 mg PO BID #14 caps 03/20/23 capsule apixaban 5 mg (74 tabs) tablets in 10 mg (2 x 5 mg (74 tabs)) PO BID 10/25/23 a dose pack #74 tabs prednisone 50 mg tablet 50 mg PO QDAY #7 tabs 10/25/23 methylprednisolone 4 mg tablets in See Rx Instructions .Route 04/25/24 a dose pack (Medrol (Gd)) .COMPLEX #21 tabs Allergies Allergy/AdvReac Type Severity Reaction Status Date / Time No Known Allergies Allergy Verified 11/27/24 13:32 Review of Systems Review of Systems Narrative Review of Systems: GEN: No fever, no chills, no weight loss EYES: No discharge, no visual changes, no pain HEENT: No ear pain, no congestion, no sore throat PULM: No shortness of breath, no cough, no congestion CV: No chest pain, no dyspnea on exertion, no palpitations GI: No nausea, no vomiting, no diarrhea, no pain, no constipation : No frequency, no urgency, no dysuria MUSC/SKEL: No joint pain, + back pain SKIN: No rash PSYCH: No hallucinations, no depression HEME/LYMPH: No easy bleeding or bruising tendencies NEURO: No weakness, no headache Past Medical History Past Medical History CARDIAC: Positive Hypercholesterolemia and Deep Vein Thrombosis; Negative Cardiac Disorders or Congestive Heart Failure RESPIRATORY: Positive Pulmonary Embolism; Negative Chronic Obstructive Pulmonary Disease (COPD) or Asthma GENITOURINARY: Negative Renal Disease MUSCULOSKELETAL: Positive Degenerative Disk Disease ENDOCRINE: Positive Hypothyroidism; Negative Diabetes Mellitus Type 1 or Diabetes Mellitus Type 2 HEMATOLOGIC: Negative Sickle Cell Disease Social History SMOKING STATUS: Current every day smoker SUBSTANCE USE: does not use ED Exam Narrative Physical exam: [General: Obese appears in mild discomfort but not in any acute distress Head normocephalic HEENT: Within acceptable limits Neck is supple nontender Chest equal chest rise nontender to palpation Respiratory: Clear to auscultation no wheezes crackles or rubs CV: Rate rhythm is regular no murmurs rubs or clicks Abdomen is distended secondary to body habitus soft nontender no masses positive bowel sounds all 4 quadrants Back: No CVA tenderness no spinous process tenderness from cervical spine thoracic and lumbar spine Skin: Intact no petechiae rash induration ulceration or crepitus Extremities: Moving all extremity against resistance cap refill less than 2 seconds neurosensory intact Neuro: Awake alert oriented x3 Glascow coma 15 no focal deficits] Course Quality Measures none Orders Category Date Time Status Diazepam Inj [Valium Inj] Med 11/27/24 14:58 Discontinued 10 mg IM X1 ONE Morphine* Inj Med 11/27/24 14:58 Discontinued 4 mg IM X1 ONE Vital Signs Vital signs: Vital Signs Temperature 98.6 F 11/27/24 14:43 Pulse Rate 60 11/27/24 14:43 Respiratory Rate 20 11/27/24 14:43 Blood Pressure 144/82 H 11/27/24 14:43 Pulse Oximetry (%) 98 11/27/24 14:43 Oxygen Delivery Method Room Air 11/27/24 14:43 Discharge Plan Plan Patient Disposition: HOME (Self Care) Patient condition on transfer: Stable Prescriptions/Referrals Prescriptions/Med Rec: No Action naproxen [Naprosyn] 500 mg tablet 500 mg PO BID PRN (Reason: pain) Qty: 30 0RF amoxicillin-pot clavulanate [Augmentin] 875-125 mg tablet 1 tab PO BID Qty: 20 0RF baclofen 20 mg tablet 20 mg PO TID PRN (Reason: Pain) hydrocodone-acetaminophen 5-325 mg tablet 1 tab PO TID MDD 3 PRN (Reason: pain) Qty: 20 0RF baclofen 20 mg tablet 20 mg PO TID PRN (Reason: pain) Qty: 30 0RF azithromycin 250 mg tablet See Rx Instructions .ROUTE .COMPLEX Qty: 6 0RF Rx Instructions: For 250 mg dose pack: take 500 mg today (day 1), then 250 mg for 4 days (days 2-5) albuterol sulfate 90 mcg/actuation HFA aerosol inhaler 2 puff inhalation QID PRN (Reason: shortness of breath or wheezing) Qty: 8.5 0RF dextromethorphan-guaifenesin 10-100 mg/5 mL liquid 10 ml PO Q8H PRN (Reason: cough) Qty: 500 0RF naproxen [Naprosyn] 500 mg tablet 500 mg PO BID Qty: 30 0RF hydrocodone-acetaminophen 5-325 mg tablet 1 tab PO BID MDD 2 Qty: 10 0RF ibuprofen 800 mg tablet 800 mg PO TID PRN (Reason: pain) Qty: 30 0RF hydrocodone-acetaminophen 5-325 mg tablet 1 tab PO BID MDD 10 PRN (Reason: pain) Qty: 6 0RF prednisone 50 mg tablet 50 mg PO QDAY Qty: 7 0RF methylprednisolone [Medrol (Dg)] 4 mg tablets,dose pack See Rx Instructions .ROUTE .COMPLEX Qty: 21 0RF Rx Instructions: TAKE DIRECTED ON PACK doxycycline monohydrate 100 mg capsule 100 mg PO BID Qty: 14 0RF apixaban 5 mg (74 tabs) tablets,dose pack 10 mg PO BID Qty: 74 0RF Rx Instructions: 2 tablets twice a day for 1 week and then 5 mg once a day Referrals: Tyrese Hernandez MD [Physician, Orthopedics] - In 1 week Problem List Clinical Impression: Acute on chronic low back pain Patient/Caregiver Discharge Instructions Education Materials: ED Chronic Pain Print Language: Greenlandic Stand Alone Forms: Josiane Award Info., Work/School Release, Patient Portal Info Letter OSIEL/ROSI Supervising Physician OSIEL/ROSI Supervising Physician: Earnest Boyce ENP [facility] Clinical Information Provided by: patient Medical Records reviewed [facility] Medical Records additional comments: Review the medical records show he was here 3 days ago for the same complaint. At this time we will give him the same medication after which I would advise no longer receiving any benzos or narcotics for chronic pain. Meds/Rx considered, not ordered None Labs/Rad/Tests considered, not ordered None Medication Administration(s) Medication Administration History Discontinued Medications Diazepam (Diazepam Inj 5 Mg/Ml Vial 2 Ml) 10 mg IM X1 ONE Stop: 11/27/24 14:59 Morphine Sulfate (Morphine Sulf Inj 4 Mg/Ml Vial) 4 mg IM X1 ONE Stop: 11/27/24 14:59
[2024-11-27] MEDS: MORPHINE SULF INJ 4 MG/ML VIAL IM (15:08)
[2024-11-27] MEDS: DIAZEPAM INJ 5 MG/ML VIAL 2 ML 10 MG IM (15:09)
== END 2024-11-27 15:17 | disposition home or self-care (01) ==
LOC: SERX 15:22
PROVIDERS: Emergency Provider Family Medicine; PCP Physician Assistant Medical
DX: M54.9 Dorsalgia, unspecified (principal); G89.29 Other chronic pain
CPT/HCPCS: 96372; 99282; J2270; J3360

== ENCOUNTER 2024-12-12 16:28 | Emergency (ER) | payer MEDICAID, SELFPAY ==
[2024-12-12 16:30] VITALS: BMI 36.9
[2024-12-12 16:40] VITALS: BP 144/89; PULSE 75; RESP 20; TEMP 36.7; O2SAT 97
--- NOTE | 2024-12-12 16:40 | EDRME_ITS ---
Rapid Medical Screening Exam [facility] Arrival date/time: 12/12/24 16:28 59-year-old male with a history of DVT, chronic back pain presents to the emergency room with a chief complaint of right sided sciatic pain. Patient also states that overnight at 2 in the morning he began having convulsions. Patient does not have any history of seizures I have greeted and performed a focused initial assessment of this patient. A comprehensive ED assessment and evaluation of the patient, analysis of all test results, and completion of the medical decision making process will be conducted by additional ED providers. Chief Complaint: Back Pain/Injury Time Seen by Provider: 12/12/24 16:33 Vital signs: Vital Signs Temperature 98.0 F 12/12/24 16:40 Pulse Rate 75 12/12/24 16:40 Respiratory Rate 20 12/12/24 16:40 Blood Pressure 144/89 H 12/12/24 16:40 Pulse Oximetry (%) 97 12/12/24 16:40 Oxygen Delivery Method Room Air 12/12/24 16:40 Vital signs reviewed by provider: No Exam: Patient is a GCS of 15 alert and oriented x 3 pupils are PERRLA EOMs are intact Patient has clear bilateral lung sounds Physical examination shows right sciatic notch tenderness with palpation Clinical Impression: Seizure/sciatica/electrolyte imbalance
--- NOTE | 2024-12-12 16:40 | EKG_ITS ---
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
[2024-12-12] MEDS: KETOROLAC INJ 60 MG/2 ML VIAL 30 MG IM (16:53)
[2024-12-12 17:12] LABS: Basophils # (Auto) 0.1 Thou/mm3 (0.0-0.2); Basophils % (Auto) 1 % (0-2.5); Eosinophils # (Auto) 0.5 Thou/mm3 (0.0-0.5); Eosinophils % (Auto) 8 % (0-10); Hematocrit 50.8 % (41.0-53.0); Hemoglobin 17.6 g/dL (13.5-16.0); Immature Granulocytes Auto 0.02 Thou/mm3 (0.00-0.00); Lymphocytes # (Auto) 2.3 Thou/mm3 (1.0-4.8); Lymphocytes % (Auto) 36 % (10-50); Mean Corpuscular HGB Conc 34.6 g/dl (31.0-37.0); Mean Corpuscular Hemoglobin 30.6 pg (25.0-35.0); Mean Corpuscular Volume 88 fL (80-100); Monocytes # (Auto) 0.5 Thou/mm3 (0.0-0.8); Monocytes % (Auto) 8 % (0-12); Neutrophils # (Auto) 3.0 Thou/mm3 (1.8-7.7); Neutrophils % (Auto) 47 % (37-80); Nucleated Red Blood Cell # 0.00 Thou/mm3 (0.00-0.00); Nucleated Red Blood Cell % 0 /100 WBC (0); Platelet Count 187 Thou/mm3 (140-440); RDW Standard Deviation 40.1 fL (35.1-43.9); Red Blood Count 5.76 Miln/mm3 (4.50-5.90); White Blood Count 6.5 Thou/mm3 (3.8-10.6)
[2024-12-12 17:25] LABS: Collection Type, Urine Clean Catch; Squamous Epithelial Cell,Urine 0 /hpf (0-5)
[2024-12-12 17:30] LABS: Bilirubin,Urine Negative (Negative); Blood,Urine Negative (Negative); Clarity,Urine Clear (Clear/Hazy); Color,Urine Lt-Yellow (Lt Yel-Yel); Culture Indicated,Urine Not Indicated; Glucose, Urine Negative (Negative); Ketones,Urine Negative (Negative); Leukocyte Esterase,Urine Negative (Negative); Nitrite,Urine Negative (Negative); PH,Urine 6.5 (5.0-7.0); Protein,Urine Negative (Neg - Trace); RBC,Urine 1 /hpf (0-3); Specific Gravity,Urine 1.005 (1.001-1.035); Urobilinogen,Urine Negative mg/dL (0.0-1.0); WBC,Urine < 1 /hpf (0-5)
[2024-12-12 17:31] LABS: B-Type Natriuretic Peptide < 20 pg/mL (0-100)
[2024-12-12 17:32] LABS: Alanine Aminotransferase 24 U/L (10-49); Albumin, Serum 5.0 gm/dL (3.5-5.0); Albumin/Globulin Ratio 1.9 (1.2-2.2); Alkaline Phosphatase 80 U/L (46-116); Anion Gap 7 (7-16); Aspartate Amino Transferase 18 U/L (0-34); BUN/Creatinine Ratio 5 Ratio (12-20); Bilirubin,Total 1.1 mg/dL (0.3-1.2); Blood Urea Nitrogen 6 mg/dL (9-23); Calcium 9.9 mg/dL (8.3-10.6); Calcium (Corrected) 9.9 mg/dL (8.5-10.1); Carbon Dioxide 27.8 mMol/L (20.0-31.0); Chloride 105 mMol/L (98-107); Creatinine (Component) 1.1 mg/dL (0.6-1.3); Estimated Creatinine Clearance 103.5 mL/min (>60); Globulin 2.7 gm/dL (2.3-3.5); Glucose 96 mg/dL (74-106); Magnesium 1.8 mg/dL (1.6-2.6); Osmolality,Calculated 277 (275-295); Potassium 4.0 mMol/L (3.4-5.1); Sodium 140 mMol/L (136-145); Total Protein 7.7 gm/dL (5.7-8.2); Troponin I < 0.020 ng/mL (0.0-0.045); eGFR > 60 See Note
[2024-12-12 17:33] LABS: INR 1.1 (0.9-1.3); Partial Thromboplastin Time 30.5 Seconds (22.0-36.0); Prothrombin Time 11.5 Seconds (9.0-12.2)
[2024-12-12 17:38] LABS: Amphetamine/Methamp Scrn,U Negative (Negative); Barbiturate Screen,Urine Negative (Negative); Benzodiazepines Screen,Urine Negative (Negative); Benzoylecgonine Screen, Ur Negative (Negative); Fentanyl Screen,Urine Negative (Negative); Opiate Screen,Urine Negative (Negative); THC Screen,Urine Positive (Negative)
--- NOTE | 2024-12-12 20:05 | PC.NURSE ---
PT AWAKE AND ALERT, SIGNED OUT AMA PT REPORTS FEELING A LITTLE BETTER AFTER PAIN MEDICATION GIVEN. DOES NOT WANT TO WAIT ANY LONGER. WANTED MEDICATION TO RELAX HIS SPASMS FOR CT, INFORMED PT IF HE WANTED TO WAIT FOR DRHarper TO REVIEW AND POSSIBLE GIVE MEDICATION. PT STATED WANTS TO GO HOME AND LAY IN HIS OWN BED. INFORMED PT OF CONSEQUENCES OF LEAVING INCLUDING UP TO . ENCOURAGED TO STAY AND WAIT. INFORMED TO RETURN FOR ANY WORSENING OF SYMPTOMS. PT VERBALIZED UNDERSTANDING. FAMILY MEMBER WITH PT.
== END 2024-12-12 20:09 | disposition left against medical advice (07) ==
PROVIDERS: Nurse Practitioner Family; Emergency Provider Emergency Medicine; PCP Physician Assistant Medical
DX: Z53.21 Procedure and treatment not carried out due to patient leaving prior to being seen by health care provider (principal)
CPT/HCPCS: 36415; 80053; 80307; 81001; 83735; 83880; 84484; 85025; 85610; 85730; 93005; 96372; 99283; J1885; A9270

== ENCOUNTER 2024-12-14 02:21 | Emergency (ER) | payer MEDICAID, SELFPAY ==
[2024-12-14 02:40] VITALS: BP 165/92; PULSE 110; RESP 18; TEMP 36.8; O2SAT 96
--- NOTE | 2024-12-14 03:01 | EDNOTE_ITS ---
ED Extremity Problem RME/HPI General Chief complaint: Extremity Problem,Nontraumatic Stated complaint: LEG SPASMS Time Seen by Provider: 12/14/24 02:56 Arrival date/time: 12/14/24 02:21 59M with history of DVT/PE on Eliquis, presents to ED with muscle spasms due to his sciatica (per patient). Patient states his DVT/PE did not feel like this. Patient takes gabapentin and Baclofen daily, and has been taking his regular doses. Patient denies alcohol use. Limitations: no limitations Related Data Home Medications ?Medication ?Instructions ?Recorded ?Confirmed baclofen 20 mg tablet 20 mg PO TID PRN Pain 12/31/20 Previous Rx's ?Medication ?Instructions ?Recorded naproxen 500 mg tablet (Naprosyn) 500 mg PO BID PRN pa in #30 tabs 03/04/20 amoxicillin 875 mg-potassium 1 tab PO BID #20 tabs clavulanate 125 mg tablet (Augmentin) baclofen 20 mg tablet 20 mg PO TID PRN pain #30 ta bs 02/23/21 albuterol sulfate 90 mcg/actuation 2 puff inhalation Q ID PRN 03/14/21 aerosol inhaler shortness of breath or wheez ing #8.5 grams azithromycin 250 mg tablet See Rx Instructions PO .COM PLEX #6 03/14/21 tabs dextromethorphan-guaifenesin 10 10 ml PO Q8H PRN cough #500 mL 03/31/21 mg-100 mg/5 mL oral liquid hydrocodone 5 mg-acetaminophen 325 1 tab PO BID #10 ta bs 10/10/21 mg tablet naproxen 500 mg tablet (Naprosyn) 500 mg PO BID #30 ta bs 10/10/21 hydrocodone 5 mg-acetaminophen 325 1 tab PO TID PRN pa in #20 tabs 10/13/21 mg tablet hydrocodone 5 mg-acetaminophen 325 1 tab PO BID PRN pa in #6 tabs 10/16/22 mg tablet ibuprofen 800 mg tablet 800 mg PO TID PRN pain #30 t abs 10/16/22 doxycycline monohydrate 100 mg 100 mg PO BID #14 caps 03/20/23 capsule apixaban 5 mg (74 tabs) tablets in 10 mg (2 x 5 mg (74 tabs)) PO BID 10/25/23 a dose pack #74 tabs prednisone 50 mg tablet 50 mg PO QDAY #7 tabs methylprednisolone 4 mg tablets in See Rx Instructions .Route 04/25/24 a dose pack (Medrol (Dg)) .COMPLEX #21 tabs Allergies Allergy/AdvReac Type Severity Reaction Status Date / Time No Known Allergies Allergy Verified 12/14/24 02:56 Review of Systems Review of Systems Systems Reviewed: All systems reviewed, normal except as documented Musculoskeletal Musculoskeletal: Reports as per HPI and Reports muscle cramps (spasm) Past Medical History Past Medical History CARDIAC: Positive Hypercholesterolemia and Deep Vein Thrombosis; Negative Cardiac Disorders or Congestive Heart Failure RESPIRATORY: Positive Pulmonary Embolism; Negative Chronic Obstructive Pulmonary Disease (COPD) or Asthma GENITOURINARY: Negative Renal Disease MUSCULOSKELETAL: Positive Degenerative Disk Disease ENDOCRINE: Positive Hypothyroidism; Negative Diabetes Mellitus Type 1 or Diabetes Mellitus Type 2 HEMATOLOGIC: Negative Sickle Cell Disease Social History SMOKING STATUS: Current every day smoker SUBSTANCE USE: does not use ED Exam General Limitations: Present no limitations General appearance: Present alert, in no apparent distress and anxious (mild) Head Head exam: Present atraumatic Neck Neck exam: Present normal inspection, full ROM and trachea midline Chest Chest inspection: Present normal inspection and symmetric chest wall rise Extremities Exam Extremities exam: Present full ROM and other (BLE spasms) Neurological Exam Neurological exam: Present alert and oriented X3 Psychiatric Psychiatric exam: Present normal affect and anxious (mild) Skin Skin exam: Present warm, dry, intact and normal color Course Quality Measures none Orders Category Date Time Status Diazepam [Valium] Med 12/14/24 02:56 Discontinued 10 mg PO X1 ONE Morphine Oral LIQUID Med 12/14/24 02:56 Discontinued 5 mg PO X1 ONE Vital Signs Vital signs: Vital Signs Temperature 98.3 F 12/14/24 02:40 Pulse Rate 110 H 12/14/24 02:40 Respiratory Rate 18 12/14/24 02:40 Blood Pressure 165/92 H 12/14/24 02:40 Pulse Oximetry (%) 96 12/14/24 02:40 Oxygen Delivery Method Room Air 12/14/24 02:40 O2 at 96% on RA and WNLs Extremity Problem MDM Narrative MDM Narrative:: 59M with history of DVT/PE on Eliquis, presents to ED with muscle spasms due to his sciatica (per patient). Patient states his DVT/PE did not feel like this. Patient takes gabapentin and Baclofen daily, and has been taking his regular doses. Patient denies alcohol use. Physical exam reveals intermittent muscle spasms in BLE. Normal WOB. Patient is afebrile, alert, but mildly anxious. Patient was here 2 days ago for this but eloped because it was taking too long. Cardiac work-up with unremarkable. Meds improved symptoms. Patient data External records reviewed:: [facility] previous records Clinical information provided by:: patient Social determinants that could affect healthcare access:: none Patient has the following chronic illnesses:: DVT/PE How is presenting disease/condition affected by chronic disease/condition?: exacerbated by Evaluation data The following diagnostics were reviewed and interpreted by me:: other (specify) (none) Lab and/or radiology exams considered but not ordered:: not ordered Interpretation Summary: n/a Medications / Prescriptions Medications or Prescriptions considered but not ordered:: ordered Medication administrations:: Medication Administration History Discontinued Medications Diazepam (Diazepam 5 Mg Tablet) 10 mg PO X1 ONE Stop: 12/14/24 02:57 Last Admin: 12/14/24 03:26 Dose: 10 mg Documented By: DARRIAN Morphine Sulfate (Morphine Sulf Liqd 10 Mg/5 Ml Udc) 5 mg PO X1 ONE Stop: 12/14/24 02:57 Last Admin: 12/14/24 03:25 Dose: 5 mg Documented By: DARRIAN above Consultations Consultation(s) initiated? (list below): No Diagnosis Extremity Problem Differential Diagnosis: herpes zoster, gout, cellulitis, superficial thrombophlebitis, deep venous thrombosis of upper extremity, lower extremity edema, deep vein thrombosis of lower extremity and other (muscle spasms) Most likely diagnosis given after review of the tests above:: muscle spasms Admission Indicated Admission indicated?: not indicated Admission Request Was there a request for admission?: No Disposition Plan Disposition Plan: Discharge Discharge Attestation Discharge Attestation: The patient and all family members were given an opportunity to ask questions and understood the discharge instructions. Discharge instructions specifically effects, indications for sooner follow up or return to the emergency department, and the expected course of current diagnosis. Patient condition: Stable Discharge Plan Plan Patient Disposition: HOME (Self Care) Discharge Disposition comment: Stable Prescriptions/Referrals Prescriptions/Med Rec: No Action naproxen [Naprosyn] 500 mg tablet 500 mg PO BID PRN (Reason: pain) Qty: 30 0RF amoxicillin-pot clavulanate [Augmentin] 875-125 mg tablet 1 tab PO BID Qty: 20 0RF baclofen 20 mg tablet 20 mg PO TID PRN (Reason: Pain) hydrocodone-acetaminophen 5-325 mg tablet 1 tab PO TID MDD 3 PRN (Reason: pain) Qty: 20 0RF baclofen 20 mg tablet 20 mg PO TID PRN (Reason: pain) Qty: 30 0RF azithromycin 250 mg tablet See Rx Instructions .ROUTE .COMPLEX Qty: 6 0RF Rx Instructions: For 250 mg dose pack: take 500 mg today (day 1), then 250 mg for 4 days (days 2-5) albuterol sulfate 90 mcg/actuation HFA aerosol inhaler 2 puff inhalation QID PRN (Reason: shortness of breath or wheezing) Qty: 8.5 0RF dextromethorphan-guaifenesin 10-100 mg/5 mL liquid 10 ml PO Q8H PRN (Reason: cough) Qty: 500 0RF naproxen [Naprosyn] 500 mg tablet 500 mg PO BID Qty: 30 0RF hydrocodone-acetaminophen 5-325 mg tablet 1 tab PO BID MDD 2 Qty: 10 0RF ibuprofen 800 mg tablet 800 mg PO TID PRN (Reason: pain) Qty: 30 0RF hydrocodone-acetaminophen 5-325 mg tablet 1 tab PO BID MDD 10 PRN (Reason: pain) Qty: 6 0RF prednisone 50 mg tablet 50 mg PO QDAY Qty: 7 0RF methylprednisolone [Medrol (Dg)] 4 mg tablets,dose pack See Rx Instructions .ROUTE .COMPLEX Qty: 21 0RF Rx Instructions: TAKE DIRECTED ON PACK doxycycline monohydrate 100 mg capsule 100 mg PO BID Qty: 14 0RF apixaban 5 mg (74 tabs) tablets,dose pack 10 mg PO BID Qty: 74 0RF Rx Instructions: 2 tablets twice a day for 1 week and then 5 mg once a day Referrals: Kylah Franklin PA-C [Primary Care Provider] - In 1 week Problem List Clinical Impression: Muscle spasm Patient/Caregiver Discharge Instructions Education Materials: ED Leg Spasm Additional Instructions: Please follow-up with PCP within 24-48 hours and return immediately if symptoms worsen. Print Language: Bahraini Stand Alone Forms: Patient Portal Info Letter [employer] Supervising Physician [employer] Supervising Physician: Dr. Chang
[2024-12-14 03:16] VITALS: BMI 38.2
[2024-12-14] MEDS: MORPHINE SULF LIQD 10 MG/5 ML UDC 5 MG PO (03:25)
[2024-12-14] MEDS: DIAZEPAM 5 MG TABLET 10 MG PO (03:26)
[2024-12-14 04:15] VITALS: RESP 16
== END 2024-12-14 04:16 | disposition home or self-care (01) ==
PROVIDERS: Emergency Provider Emergency Medicine; PCP Physician Assistant Medical
DX: M54.30 Sciatica, unspecified side (principal)
CPT/HCPCS: 99281; A9270

== ENCOUNTER 2024-12-16 18:29 | Emergency (ER) | payer MEDICAID, SELFPAY ==
[2024-12-16 18:43] VITALS: BP 155/94; PULSE 85; RESP 18; TEMP 36.6; O2SAT 98
[2024-12-16 19:59] VITALS: BP 136/80; PULSE 61; RESP 17; TEMP 36.5; O2SAT 96
--- NOTE | 2024-12-16 20:17 | XR_ITS ---
Examination: Retroperitoneal ultrasound, complete Technique: Multiple high resolution grayscale images of the retroperitoneum obtained, including kidneys and bladder. Exam date and time: December 16, 2024, 2134 hours INDICATIONS: Back pain flank pain 1 year FINDINGS: Right kidney 10.0 cm mid cortex 1.7 cm Left kidney 10.2 cm renal cortex 1.9 cm No hydronephrosis Mild renal parenchymal scar formation No bladder mass or bladder calculi Bladder prevoid volume 510.6 cc IMPRESSION: Mild bilateral renal scar formation No hydronephrosis
--- NOTE | 2024-12-16 20:17 | XR_ITS ---
Examination: Duplex scan of the lower extremity, unilateral right Date and time of exam: December 16, 2024, 2153 hours INDICATIONS: Right leg swelling and pain beginning 1 year ago Technique: Duplex scan of the extremity veins using B-mode/grayscale imaging and Doppler spectral analysis and color flow Attention is directed to internal echogenicity, compression and augmentation involving these veins, color flow assessment, spectral analysis Findings: Major deep venous structures in the extremity demonstrate normal course and caliber. There is no evidence of deep vein thrombosis. Normal color flow and spectral analysis Impression: Negative for DVT..
--- NOTE | 2024-12-16 20:19 | PD.EDRME ---
Rapid Medical Screening Exam E Arrival date/time: 12/16/24 18:29 This is a case of 59-year-old male with history of chronic low back pain and herniated disc came in in the emergency room due to low back pain radiating to the right lower extremities patient also complaining of pain on the posterior right thigh patient also complaining unable to urinate requesting an ultrasound of his kidney Chief Complaint: Back Pain/Injury Time Seen by Provider: 12/16/24 18:39 Vital signs: Vital Signs Temperature 97.9 F 12/16/24 18:43 Pulse Rate 85 12/16/24 18:43 Respiratory Rate 18 12/16/24 18:43 Blood Pressure 155/94 H 12/16/24 18:43 Pulse Oximetry (%) 98 12/16/24 18:43 Oxygen Delivery Method Room Air 12/16/24 18:43 Exam: Abdominal exam is benign nonsurgical no guarding no rebound no rigidity back exam noted moderate tenderness L1-L5 no signs or symptoms of cauda equina Clinical Impression: Chronic low back pain
[2024-12-16 20:30] LABS: Collection Type, Urine Voided; Squamous Epithelial Cell,Urine 0 /hpf (0-5)
[2024-12-16 20:51] LABS: Bilirubin,Urine Negative (Negative); Blood,Urine Negative (Negative); Clarity,Urine Clear (Clear/Hazy); Color,Urine Yellow (Lt Yel-Yel); Glucose, Urine Negative (Negative); Ketones,Urine Negative (Negative); Leukocyte Esterase,Urine Negative (Negative); Nitrite,Urine Negative (Negative); PH,Urine 6.0 (5.0-7.0); Protein,Urine Negative (Neg - Trace); RBC,Urine 1 /hpf (0-3); Specific Gravity,Urine 1.023 (1.001-1.035); Urobilinogen,Urine 2.0 mg/dL (0.0-1.0); WBC,Urine 1 /hpf (0-5)
[2024-12-16 21:01] LABS: Basophils # (Auto) 0.1 Thou/mm3 (0.0-0.2); Basophils % (Auto) 1 % (0-2.5); Eosinophils # (Auto) 0.7 Thou/mm3 (0.0-0.5); Eosinophils % (Auto) 8 % (0-10); Hematocrit 46.7 % (41.0-53.0); Hemoglobin 16.3 g/dL (13.5-16.0); Immature Granulocytes Auto 0.02 Thou/mm3 (0.00-0.00); Lymphocytes # (Auto) 2.4 Thou/mm3 (1.0-4.8); Lymphocytes % (Auto) 29 % (10-50); Mean Corpuscular HGB Conc 34.9 g/dl (31.0-37.0); Mean Corpuscular Hemoglobin 30.8 pg (25.0-35.0); Mean Corpuscular Volume 88 fL (80-100); Monocytes # (Auto) 0.5 Thou/mm3 (0.0-0.8); Monocytes % (Auto) 6 % (0-12); Neutrophils # (Auto) 4.6 Thou/mm3 (1.8-7.7); Neutrophils % (Auto) 55 % (37-80); Nucleated Red Blood Cell # 0.00 Thou/mm3 (0.00-0.00); Nucleated Red Blood Cell % 0 /100 WBC (0); Platelet Count 189 Thou/mm3 (140-440); RDW Standard Deviation 40.5 fL (35.1-43.9); Red Blood Count 5.30 Miln/mm3 (4.50-5.90); White Blood Count 8.3 Thou/mm3 (3.8-10.6)
[2024-12-16 21:11] LABS: Amphetamine/Methamp Scrn,U Negative (Negative); Barbiturate Screen,Urine Negative (Negative); Benzodiazepines Screen,Urine Positive (Negative); Benzoylecgonine Screen, Ur Negative (Negative); Fentanyl Screen,Urine Negative (Negative); Opiate Screen,Urine Negative (Negative); THC Screen,Urine Positive (Negative)
--- NOTE | 2024-12-16 21:22 | PD.EDHIP ---
Lower Extremity Injury RME/HPI General Chief Complaint: Back Pain/Injury Stated Complaint: Right lower back pain, pain goes down right leg Time Seen by Provider: 12/16/24 18:39 Arrival date/time: 12/16/24 18:29 RME / HPI RME / HPI Narrative: 12/16/24 18:29 This is a case of 59-year-old male with history of chronic low back pain and herniated disc came in in the emergency room due to low back pain radiating to the right lower extremities patient also complaining of pain on the posterior right thigh patient also complaining unable to urinate requesting an ultrasound of his kidney DR. PROCTOR MAIN ED EVALUATION: 59 y/o male with Hx of Hypercholesterolemia, Deep Vein Thrombosis, and Degenerative Disk Disease presents with ongoing right hip pain that radiates down to the right toes, worse today. Reports difficulty with walking more than 30 ft. Pain management is overseen by Dr. Manjinder Shahid. Patient manages pain with Gabapentin, Celebrex, and Marijuana. Patient is currently pending referral for surgical consult. Exam: Abdominal exam is benign nonsurgical no guarding no rebound no rigidity back exam noted moderate tenderness L1-L5 no signs or symptoms of cauda equina Impression: Chronic low back pain Related Data Home Medications ?Medication ?Instructions ?Recorded ?Confirmed baclofen 20 mg tablet 20 mg PO TID PRN Pain 12/31/20 12/31/20 Previous Rx's ?Medication ?Instructions ?Recorded naproxen 500 mg tablet (Naprosyn) 500 mg PO BID PRN pain #30 tabs 03/04/20 amoxicillin 875 mg-potassium 1 tab PO BID #20 tabs 12/30/20 clavulanate 125 mg tablet (Augmentin) baclofen 20 mg tablet 20 mg PO TID PRN pain #30 tabs 02/23/21 albuterol sulfate 90 mcg/actuation 2 puff inhalation QID PRN 03/14/21 aerosol inhaler shortness of breath or wheezing #8.5 grams azithromycin 250 mg tablet See Rx Instructions PO .COMPLEX #6 03/14/21 tabs dextromethorphan-guaifenesin 10 10 ml PO Q8H PRN cough #500 mL 03/31/21 mg-100 mg/5 mL oral liquid hydrocodone 5 mg-acetaminophen 325 1 tab PO BID #10 tabs 10/10/21 mg tablet naproxen 500 mg tablet (Naprosyn) 500 mg PO BID #30 tabs 10/10/21 hydrocodone 5 mg-acetaminophen 325 1 tab PO TID PRN pain #20 tabs 10/13/21 mg tablet hydrocodone 5 mg-acetaminophen 325 1 tab PO BID PRN pain #6 tabs 10/16/22 mg tablet ibuprofen 800 mg tablet 800 mg PO TID PRN pain #30 tabs 10/16/22 doxycycline monohydrate 100 mg 100 mg PO BID #14 caps 03/20/23 capsule apixaban 5 mg (74 tabs) tablets in 10 mg (2 x 5 mg (74 tabs)) PO BID 10/25/23 a dose pack #74 tabs prednisone 50 mg tablet 50 mg PO QDAY #7 tabs 10/25/23 methylprednisolone 4 mg tablets in See Rx Instructions .Route 04/25/24 a dose pack (Medrol (Dg)) .COMPLEX #21 tabs diazepam 10 mg tablet (Valium) 10 mg PO TID PRN muscle spasm #20 12/16/24 tabs Allergies Allergy/AdvReac Type Severity Reaction Status Date / Time No Known Allergies Allergy Verified 12/16/24 18:36 Review of Systems Review of Systems Systems Reviewed: All systems reviewed, normal except as documented Past Medical History Past Medical History CARDIAC: Positive Hypercholesterolemia and Deep Vein Thrombosis RESPIRATORY: Positive Pulmonary Embolism MUSCULOSKELETAL: Positive Degenerative Disk Disease ENDOCRINE: Positive Hypothyroidism Surgical History SURGICAL: Positive Tonsillectomy Social History SMOKING STATUS: Current every day smoker ED Exam Narrative Physical exam: Generally patient is alert obese and chronically ill-appearing, heart regular rate and rhythm, lungs clear to auscultation equal bilaterally, abdomen is obese nontender, musculoskeletal exam showed the patient have tenderness to palpation over the right sacroiliac joint. Neurologically the patient is intact. Course Quality Measures none Orders Category Date Time Status US renal BI Stat Exams 12/16/24 20:17 Completed US venous doppler LE RT Stat Exams 12/16/24 20:17 Completed CBC Stat Lab 12/16/24 20:47 Completed CMP [Comprehensive Metabolic Panel] Stat Lab 12/16/24 20:47 Completed Drug Screen,Urine Stat Lab 12/16/24 20:24 Completed PSA [Prostate Specific Antigen] Stat Lab 12/16/24 20:47 Completed Urinalysis Stat Lab 12/16/24 20:24 Completed Diazepam [Valium] Med 12/16/24 21:18 Discontinued 10 mg PO X1 ONE HYDROmorphone INJ [Dilaudid Inj] Med 12/16/24 21:18 Discontinued 1 mg IVP X1 ONE HYDROmorphone INJ [Dilaudid Inj] Med 12/16/24 22:16 Discontinued 1 mg IVP X1 ONE Ketorolac Inj [Toradol Inj] Med 12/16/24 21:18 Discontinued 30 mg IVP X1 ONE Vital Signs Vital signs: Vital Signs Temperature 97.9 F 12/16/24 18:43 Pulse Rate 85 12/16/24 18:43 Respiratory Rate 18 12/16/24 18:43 Blood Pressure 155/94 H 12/16/24 18:43 Pulse Oximetry (%) 98 12/16/24 18:43 Oxygen Delivery Method Room Air 12/16/24 18:43 Extremity Injury, Lower MDM Narrative MDM Narrative:: Scribe Attestation: Andria Morgan am scribing for and in the presence of Dr. Proctor. Provider Notation: Although this document has been carefully reviewed, there may still be some phonetic and other typographical errors. These errors are purely grammatical due to imperfections in the software program and should not be construed in any way to compromise the substance of the patient's medical care during this visit. Patient has acute upon chronic low back pain and describes it as sciatica. It does radiate down the posterior aspect of the leg and to the inner right thigh. Patient did give the history of bending over a couple days ago and becoming somewhat incontinent with a few drops of urine. I do not believe this patient to have cauda equina syndrome. There is no saddle anesthesia. No fecal retention or incontinence. I reviewed the patient's MRI done in May of this year which showed small disc bulges at L3-L4 and L4-L5. Patient has an appointment with a neurosurgeon. He is also followed by painter and body work. Patient did receive Dilaudid 1 mg IV, Toradol 30 mg IV and Valium 10 mg p.o. Patient did have an episode of bradycardia down in the 40s also likely secondary to the Dilaudid. Patient will be discharged on Valium to be taken as prescribed. He is to keep his follow-up appointments. Apply warm to painful areas. Patient data External records reviewed:: [facility] previous records (Reviewed prior ED records from 12/14/24. Patient was seen for Muscle spasm.) Clinical information provided by:: patient Social determinants that could affect healthcare access:: substance use (Marijuana) Patient has the following chronic illnesses:: Hypercholesterolemia, Deep Vein Thrombosis, Pulmonary Embolism, Degenerative Disk Disease, Hypothyroidism How is presenting disease/condition affected by chronic disease/condition?: exacerbated by Evaluation data The following diagnostics were reviewed and interpreted by me:: lab results Lab and/or radiology exams considered but not ordered:: None Interpretation Summary: N/A Medications / Prescriptions Medications or Prescriptions considered but not ordered:: None Medication administrations:: Medication Administration History Discontinued Medications Diazepam (Diazepam 5 Mg Tablet) 10 mg PO X1 ONE Stop: 12/16/24 21:19 Last Admin: 12/16/24 21:26 Dose: 10 mg Documented By: ERICK Hydromorphone HCl (Hydromorphone Inj 2 Mg/Ml Vial) 1 mg IVP X1 ONE Stop: 12/16/24 21:19 Last Admin: 12/16/24 21:27 Dose: 1 mg Documented By: ERICK Hydromorphone HCl (Hydromorphone Inj 2 Mg/Ml Vial) 1 mg IVP X1 ONE Stop: 12/16/24 22:17 Ketorolac Tromethamine (Ketorolac Inj 30 Mg/Ml Vial) 30 mg IVP X1 ONE Stop: 12/16/24 21:19 Last Admin: 12/16/24 21:26 Dose: 30 mg Documented By: ERICK See above if any Consultations Consultation(s) initiated? (list below): No Diagnosis Extremity Injury, Lower Differential Diagnosis: fracture of hip and other (Sciatica pain, Piriformis syndrome, Pseudoradicular pain) Most likely diagnosis given after review of the tests above:: none Admission Indicated Admission indicated?: not indicated Explain why admission is indicated or not indicated:: Patient does not meet admission criteria Admission Request Was there a request for admission?: No Disposition Plan Disposition Plan: Discharge Discharge Attestation Discharge Attestation: The patient and all family members were given an opportunity to ask questions and understood the discharge instructions. Discharge instructions specifically effects, indications for sooner follow up or return to the emergency department, and the expected course of current diagnosis. Patient condition: Stable Discharge Plan Plan Patient Disposition: HOME (Self Care) Prescriptions/Referrals Prescriptions/Med Rec: New diazepam [Valium] 10 mg tablet 10 mg PO TID PRN (Reason: muscle spasm) Qty: 20 0RF No Action naproxen [Naprosyn] 500 mg tablet 500 mg PO BID PRN (Reason: pain) Qty: 30 0RF amoxicillin-pot clavulanate [Augmentin] 875-125 mg tablet 1 tab PO BID Qty: 20 0RF baclofen 20 mg tablet 20 mg PO TID PRN (Reason: Pain) hydrocodone-acetaminophen 5-325 mg tablet 1 tab PO TID MDD 3 PRN (Reason: pain) Qty: 20 0RF baclofen 20 mg tablet 20 mg PO TID PRN (Reason: pain) Qty: 30 0RF azithromycin 250 mg tablet See Rx Instructions .ROUTE .COMPLEX Qty: 6 0RF Rx Instructions: For 250 mg dose pack: take 500 mg today (day 1), then 250 mg for 4 days (days 2-5) albuterol sulfate 90 mcg/actuation HFA aerosol inhaler 2 puff inhalation QID PRN (Reason: shortness of breath or wheezing) Qty: 8.5 0RF dextromethorphan-guaifenesin 10-100 mg/5 mL liquid 10 ml PO Q8H PRN (Reason: cough) Qty: 500 0RF naproxen [Naprosyn] 500 mg tablet 500 mg PO BID Qty: 30 0RF hydrocodone-acetaminophen 5-325 mg tablet 1 tab PO BID MDD 2 Qty: 10 0RF ibuprofen 800 mg tablet 800 mg PO TID PRN (Reason: pain) Qty: 30 0RF hydrocodone-acetaminophen 5-325 mg tablet 1 tab PO BID MDD 10 PRN (Reason: pain) Qty: 6 0RF prednisone 50 mg tablet 50 mg PO QDAY Qty: 7 0RF methylprednisolone [Medrol (Dg)] 4 mg tablets,dose pack See Rx Instructions .ROUTE .COMPLEX Qty: 21 0RF Rx Instructions: TAKE DIRECTED ON PACK doxycycline monohydrate 100 mg capsule 100 mg PO BID Qty: 14 0RF apixaban 5 mg (74 tabs) tablets,dose pack 10 mg PO BID Qty: 74 0RF Rx Instructions: 2 tablets twice a day for 1 week and then 5 mg once a day Referrals: Kylah Franklin PA-C [Primary Care Provider] - In 1 week Problem List Clinical Impression: Sciatica Patient/Caregiver Discharge Instructions Education Materials: ED Sciatica Additional Instructions: Valium as prescribed. Keep your follow-up appointments. Print Language: Trinidadian Stand Alone Forms: Josiane Award Info., Patient Portal Info Letter
[2024-12-16 21:23] LABS: Prostate Specific Antigen 0.69 ng/mL (0-4.00)
[2024-12-16 21:25] LABS: Alanine Aminotransferase 16 U/L (10-49); Albumin, Serum 4.5 gm/dL (3.5-5.0); Albumin/Globulin Ratio 1.7 (1.2-2.2); Alkaline Phosphatase 69 U/L (46-116); Anion Gap 6 (7-16); Aspartate Amino Transferase 20 U/L (0-34); BUN/Creatinine Ratio 7 Ratio (12-20); Bilirubin,Total 0.4 mg/dL (0.3-1.2); Blood Urea Nitrogen 8 mg/dL (9-23); Calcium 9.8 mg/dL (8.3-10.6); Calcium (Corrected) 9.8 mg/dL (8.5-10.1); Carbon Dioxide 25.2 mMol/L (20.0-31.0); Chloride 108 mMol/L (98-107); Creatinine (Component) 1.1 mg/dL (0.6-1.3); Globulin 2.6 gm/dL (2.3-3.5); Glucose 112 mg/dL (74-106); Osmolality,Calculated 276 (275-295); Potassium 3.5 mMol/L (3.4-5.1); Sodium 139 mMol/L (136-145); Total Protein 7.1 gm/dL (5.7-8.2); eGFR > 60 See Note
[2024-12-16] MEDS: KETOROLAC INJ 30 MG/ML VIAL IVP (21:26)
[2024-12-16] MEDS: DIAZEPAM 5 MG TABLET 10 MG PO (21:26)
[2024-12-16] MEDS: HYDROmorphone INJ 2 MG/ML VIAL 1 MG IVP (21:27)
[2024-12-16 21:28] VITALS: BMI 38.2
--- NOTE | 2024-12-16 22:50 | PC.NURSE ---
DR PROCTOR WAS NOTIFIED OF PTS DECREASE IN HEART RATE. THIS RN ASSESSED PT AND REPORTED TO BE FINE, JUST IN PAIN . PT DENIES CHEST PAIN, WEAKNESS, DIZZINESS, LIGHTHEADED, OR SOB.
[2024-12-16 23:10] VITALS: BP 146/80; PULSE 54; RESP 18; TEMP 36.9; O2SAT 98
== END 2024-12-16 23:11 | disposition home or self-care (01) ==
PROVIDERS: Nurse Practitioner Family; Emergency Provider Emergency Medicine; PCP Physician Assistant Medical
DX: M54.40 Lumbago with sciatica, unspecified side (principal); E78.00 Pure hypercholesterolemia, unspecified; Z79.891 Long term (current) use of opiate analgesic
CPT/HCPCS: 36415; 76770; 80053; 80307; 81001; 84153; 85025; 93971; 96374; 96375; 99283; J1171; J1885; A9270

== ENCOUNTER 2024-12-22 19:38 | Emergency (ER) | payer MEDICAID, SELFPAY ==
[2024-12-22 19:39] VITALS: BMI 38.2
[2024-12-22 20:04] VITALS: BP 147/87; PULSE 64; RESP 20; TEMP 36.8; O2SAT 97
--- NOTE | 2024-12-22 20:46 | EDNOTE_ITS ---
ED Extremity Problem RME/HPI General Chief complaint: Extremity Problem,Nontraumatic Stated complaint: RIGHT LEG SPASMS AND SCIATICA PAIN Time Seen by Provider: 12/22/24 20:39 Arrival date/time: 12/22/24 19:38 59-year-old male patient came in for evaluation regarding worsening sciatic pain. Patient's been suffering from low back pain, sciatic pain for at least 18 months, pending to be seen by bibliographic services specialist, currently taking Valium, 10 mg every 8 hours however he is running up with currently. Patient is also taking Celebrex. Patient was seen by PCP and was started on diclofenac. Patient denies any urinary incontinence. Denies any bowel incontinence denies any weakness to bilateral lower extremity however been complaining of bilateral lower extremity spasm. No medication was taken prior to ER visit. Related Data Home Medications ?Medication ?Instructions ?Recorded ?Confirmed baclofen 20 mg tablet 20 mg PO TID PRN Pain 12/31/20 Previous Rx's ?Medication ?Instructions ?Recorded naproxen 500 mg tablet (Naprosyn) 500 mg PO BID PRN pa in #30 tabs 03/04/20 amoxicillin 875 mg-potassium 1 tab PO BID #20 tabs clavulanate 125 mg tablet (Augmentin) baclofen 20 mg tablet 20 mg PO TID PRN pain #30 ta bs 02/23/21 albuterol sulfate 90 mcg/actuation 2 puff inhalation Q ID PRN 03/14/21 aerosol inhaler shortness of breath or wheez ing #8.5 grams azithromycin 250 mg tablet See Rx Instructions PO .COM PLEX #6 03/14/21 tabs dextromethorphan-guaifenesin 10 10 ml PO Q8H PRN cough #500 mL 03/31/21 mg-100 mg/5 mL oral liquid hydrocodone 5 mg-acetaminophen 325 1 tab PO BID #10 ta bs 10/10/21 mg tablet naproxen 500 mg tablet (Naprosyn) 500 mg PO BID #30 ta bs 10/10/21 hydrocodone 5 mg-acetaminophen 325 1 tab PO TID PRN pa in #20 tabs 10/13/21 mg tablet hydrocodone 5 mg-acetaminophen 325 1 tab PO BID PRN pa in #6 tabs 10/16/22 mg tablet ibuprofen 800 mg tablet 800 mg PO TID PRN pain #30 t abs 10/16/22 doxycycline monohydrate 100 mg 100 mg PO BID #14 caps 03/20/23 capsule apixaban 5 mg (74 tabs) tablets in 10 mg (2 x 5 mg (74 tabs)) PO BID 10/25/23 a dose pack #74 tabs prednisone 50 mg tablet 50 mg PO QDAY #7 tabs methylprednisolone 4 mg tablets in See Rx Instructions .Route 04/25/24 a dose pack (Medrol (Dg)) .COMPLEX #21 tabs diazepam 10 mg tablet (Valium) 10 mg PO TID PRN muscle spasm #20 12/16/24 tabs diazepam 10 mg tablet (Valium) 10 mg PO TID PRN muscle spasm #10 12/22/24 tabs Allergies Allergy/AdvReac Type Severity Reaction Status Date / Time No Known Allergies Allergy Verified 12/16/24 18:36 Review of Systems Review of Systems Narrative Review of Systems: Review of system reviewed and within normal limits except mentioned in HPI ED Exam Narrative Physical exam: VITAL SIGNS: Reviewed. GENERAL APPEARANCE: Alert and interactive, follows commands, no acute distress, HEAD AND FACE: Non-traumatic. ENT: PERRL, pink conjunctivitis, eyelid no trauma, Mucous membrane moist. NECK: Supple, nontender, no nuchal rigidity. CHEST: No tenderness, no crepitus, no paradoxical movement, no retractions. LUNGS: Clear, well ventilated, symmetric, no rales, no wheezing, no ronchi, no stridor, good breath sounds bilaterally. HEART: Regular rate, regular rhythm, no murmur, no gallops. ABDOMEN: Soft, positive bowel sounds, nondistended, no guarding, nontender, no rebound, no masses, RECTAL: Deferred. GENITAL: Deferred. NEUROLOGICAL: Gross motor function intact sensory function intact, Appropriate for age. MUSCULOSKELETAL: low back tenderness, full range of motion. EXTREMITIES: Nontender, full range of motion. SKIN: Color pink, dry, no rash, no lacerations, no abrasions, no contusions. LYMPHATICS: Deferred. Course Quality Measures none Orders Category Date Time Status Diazepam [Valium] Med 12/22/24 20:45 Once 10 mg PO X1 ONE Morphine* Inj Med 12/22/24 20:45 Once 4 mg IM X1 ONE Vital Signs Vital signs: Vital Signs Temperature 98.2 F 12/22/24 20:04 Pulse Rate 64 12/22/24 20:04 Respiratory Rate 20 12/22/24 20:04 Blood Pressure 147/87 H 12/22/24 20:04 Pulse Oximetry (%) 97 12/22/24 20:04 Oxygen Delivery Method Room Air 12/22/24 20:04 Extremity Problem MDM Narrative MDM Narrative:: 12/22/24 19:38 59-year-old male patient came in for evaluation regarding worsening sciatic pain. Patient's been suffering from low back pain, sciatic pain for at least 18 months, pending to be seen by bibliographic services specialist, currently taking Valium, 10 mg every 8 hours however he is running up with currently. Patient is also taking Celebrex. Patient was seen by PCP and was started on diclofenac. Patient denies any urinary incontinence. Denies any bowel incontinence denies any weakness to bilateral lower extremity however been complaining of bilateral lower extremity spasm. No medication was taken prior to ER visit. Imaging workup started this time patient is not showing any cauda equina syndrome. Patient received morphine IM and Valium p.o. Patient was advised to follow-up closely with PCP. And asked for referral to spine surgeon. Patient is stable for discharge home. Patient data External records reviewed:: None Clinical information provided by:: patient and family Social determinants that could affect healthcare access:: none Patient has the following chronic illnesses:: History of chronic back pain How is presenting disease/condition affected by chronic disease/condition?: exacerbated by Evaluation data The following diagnostics were reviewed and interpreted by me:: other (specify) (None) Lab and/or radiology exams considered but not ordered:: None Interpretation Summary: None Medications / Prescriptions Medications or Prescriptions considered but not ordered:: None Medication administrations:: Medication Administration History Diazepam (Diazepam 5 Mg Tablet) 10 mg PO X1 ONE Stop: 12/22/24 20:46 Morphine Sulfate (Morphine Sulf Inj 4 Mg/Ml Vial) 4 mg IM X1 ONE Stop: 12/22/24 20:46 Valium, morphine Consultations Consultation(s) initiated? (list below): No Diagnosis Extremity Problem Differential Diagnosis: other (Sciatica, acute on chronic back pain, bilateral lower leg spasm) Most likely diagnosis given after review of the tests above:: Acute on chronic back pain Admission Indicated Admission indicated?: not indicated Admission Request Was there a request for admission?: No Disposition Plan Disposition Plan: Discharge Discharge Attestation Discharge Attestation: The patient and all family members were given an opportunity to ask questions and understood the discharge instructions. Discharge instructions specifically effects, indications for sooner follow up or return to the emergency department, and the expected course of current diagnosis. Patient condition: Stable Discharge Plan Plan Patient Disposition: HOME (Self Care) Discharge Disposition comment: Stable Prescriptions/Referrals Prescriptions/Med Rec: New diazepam [Valium] 10 mg tablet 10 mg PO TID PRN (Reason: muscle spasm) Qty: 10 0RF No Action naproxen [Naprosyn] 500 mg tablet 500 mg PO BID PRN (Reason: pain) Qty: 30 0RF amoxicillin-pot clavulanate [Augmentin] 875-125 mg tablet 1 tab PO BID Qty: 20 0RF baclofen 20 mg tablet 20 mg PO TID PRN (Reason: Pain) hydrocodone-acetaminophen 5-325 mg tablet 1 tab PO TID MDD 3 PRN (Reason: pain) Qty: 20 0RF baclofen 20 mg tablet 20 mg PO TID PRN (Reason: pain) Qty: 30 0RF azithromycin 250 mg tablet See Rx Instructions .ROUTE .COMPLEX Qty: 6 0RF Rx Instructions: For 250 mg dose pack: take 500 mg today (day 1), then 250 mg for 4 days (days 2-5) albuterol sulfate 90 mcg/actuation HFA aerosol inhaler 2 puff inhalation QID PRN (Reason: shortness of breath or wheezing) Qty: 8.5 0RF dextromethorphan-guaifenesin 10-100 mg/5 mL liquid 10 ml PO Q8H PRN (Reason: cough) Qty: 500 0RF naproxen [Naprosyn] 500 mg tablet 500 mg PO BID Qty: 30 0RF hydrocodone-acetaminophen 5-325 mg tablet 1 tab PO BID MDD 2 Qty: 10 0RF ibuprofen 800 mg tablet 800 mg PO TID PRN (Reason: pain) Qty: 30 0RF hydrocodone-acetaminophen 5-325 mg tablet 1 tab PO BID MDD 10 PRN (Reason: pain) Qty: 6 0RF prednisone 50 mg tablet 50 mg PO QDAY Qty: 7 0RF methylprednisolone [Medrol (Dg)] 4 mg tablets,dose pack See Rx Instructions .ROUTE .COMPLEX Qty: 21 0RF Rx Instructions: TAKE DIRECTED ON PACK diazepam [Valium] 10 mg tablet 10 mg PO TID PRN (Reason: muscle spasm) Qty: 20 0RF doxycycline monohydrate 100 mg capsule 100 mg PO BID Qty: 14 0RF apixaban 5 mg (74 tabs) tablets,dose pack 10 mg PO BID Qty: 74 0RF Rx Instructions: 2 tablets twice a day for 1 week and then 5 mg once a day Problem List Clinical Impression: Acute on chronic back pain Patient/Caregiver Discharge Instructions Discharge Activity: activity as tolerated Education Materials: ED Chronic Pain Additional Instructions: Thank you for the opportunity for serving you today. You are stable for disc harged . You are advised to: Follow-up with your PCP in 1 to 2 days Return to ED for worsening of symptoms Increase oral fluids Take medication as prescribed Print Language: Swedish Stand Alone Forms: Josiane Award Info., Patient Portal Info Letter
[2024-12-22] MEDS: DIAZEPAM 5 MG TABLET 10 MG PO (21:12)
[2024-12-22] MEDS: MORPHINE SULF INJ 4 MG/ML VIAL IM (21:12)
[2024-12-22 21:16] VITALS: BP 151/89; PULSE 63; RESP 16; TEMP 36.7; O2SAT 97
== END 2024-12-22 21:17 | disposition home or self-care (01) ==
LOC: SERX 21:19
PROVIDERS: Emergency Provider Emergency Medicine
DX: M54.30 Sciatica, unspecified side (principal)
CPT/HCPCS: 96372; 99282; J2270; A9270

== ENCOUNTER 2025-01-06 13:07 | Emergency (ER) | payer MEDICAID, SELFPAY ==
[2025-01-06 13:07] VITALS: BMI 38.2
[2025-01-06 13:37] VITALS: BP 148/96; PULSE 89; RESP 18; TEMP 36.9; O2SAT 99
--- NOTE | 2025-01-06 13:56 | EDNOTE_ITS ---
ED Back Injury Pain RME/HPI General Chief Complaint: Back Pain/Injury Stated Complaint: SEVERE SIATIC PAIN Time Seen by Provider: 01/06/25 13:25 Source: patient Arrival date/time: 01/06/25 13:07 59-year-old male with no known medical history presents to the emergency room with a chief complaint of right sciatic pain x 1 week Mode of arrival: ambulatory Limitations: no limitations Related Data Home Medications ?Medication ?Instructions ?Recorded ?Confirmed baclofen 20 mg tablet 20 mg PO TID PRN Pain 12/31/20 Previous Rx's ?Medication ?Instructions ?Recorded naproxen 500 mg tablet (Naprosyn) 500 mg PO BID PRN pa in #30 tabs 03/04/20 amoxicillin 875 mg-potassium 1 tab PO BID #20 tabs clavulanate 125 mg tablet (Augmentin) baclofen 20 mg tablet 20 mg PO TID PRN pain #30 ta bs 02/23/21 albuterol sulfate 90 mcg/actuation 2 puff inhalation Q ID PRN 03/14/21 aerosol inhaler shortness of breath or wheez ing #8.5 grams azithromycin 250 mg tablet See Rx Instructions PO .COM PLEX #6 03/14/21 tabs dextromethorphan-guaifenesin 10 10 ml PO Q8H PRN cough #500 mL 03/31/21 mg-100 mg/5 mL oral liquid hydrocodone 5 mg-acetaminophen 325 1 tab PO BID #10 ta bs 10/10/21 mg tablet naproxen 500 mg tablet (Naprosyn) 500 mg PO BID #30 ta bs 10/10/21 hydrocodone 5 mg-acetaminophen 325 1 tab PO TID PRN pa in #20 tabs 10/13/21 mg tablet hydrocodone 5 mg-acetaminophen 325 1 tab PO BID PRN pa in #6 tabs 10/16/22 mg tablet ibuprofen 800 mg tablet 800 mg PO TID PRN pain #30 t abs 10/16/22 doxycycline monohydrate 100 mg 100 mg PO BID #14 caps 03/20/23 capsule apixaban 5 mg (74 tabs) tablets in 10 mg (2 x 5 mg (74 tabs)) PO BID 10/25/23 a dose pack #74 tabs prednisone 50 mg tablet 50 mg PO QDAY #7 tabs methylprednisolone 4 mg tablets in See Rx Instructions .Route 04/25/24 a dose pack (Medrol (Dg)) .COMPLEX #21 tabs diazepam 10 mg tablet (Valium) 10 mg PO TID PRN muscle spasm #20 12/16/24 tabs diazepam 10 mg tablet (Valium) 10 mg PO TID PRN muscle spasm #10 12/22/24 tabs Allergies Allergy/AdvReac Type Severity Reaction Status Date / Time No Known Allergies Allergy Verified 01/06/25 13:09 Review of Systems Review of Systems Systems Reviewed: All systems reviewed, normal except as documented Constitutional Constitutional: Reports system reviewed and no additional complaints, except as documented, Denies fatigue, Denies fever(s), Denies headache(s) and Denies weakness Eyes Eyes: Reports system reviewed and no additional complaints, except as documented, Denies blurry vision and Denies change in vision ENT Ears, Nose, Mouth, and Throat: Reports system reviewed and no additional complaints, except as documented, Denies otalgia, Denies headache(s), Denies nasal congestion, Denies throat swelling and Denies vertigo Cardiovascular Cardiovascular: Reports system reviewed and no additional complaints, except as documented, Denies chest pain, Denies dyspnea and Denies dyspnea on exertion Respiratory Respiratory: Reports system reviewed and no additional complaints, except as documented, Denies chest congestion, Denies cough, Denies dyspnea, Denies dyspnea on exertion and Denies wheezing Gastrointestinal Gastrointestinal: Reports system reviewed and no additional complaints, except as documented, Denies abdominal pain, Denies cramping, Denies nausea and Denies vomiting Genitourinary Genitourinary: Reports system reviewed and no additional complaints, except as documented, Denies dysuria and Denies hematuria Musculoskeletal Musculoskeletal: Reports system reviewed and no additional complaints, except as documented and Reports back pain Integumentary/Breasts Skin/Breast: Reports system reviewed and no additional complaints, except as documented and Denies wounds Neurologic Neurologic: Reports system reviewed and no additional complaints, except as documented, Denies confusion, Denies headache(s), Denies lack of coordination, Denies vertigo and Denies weakness Psychiatric Psychiatric: Reports system reviewed and no additional complaints, except as documented, Denies anxiety, Denies confusion, Denies depression, Denies paranoia, Denies suicidal ideation and Denies tactile hallucinations Endocrine Endocrine: Reports system reviewed and no additional complaints, except as documented and Denies fatigue Hematologic/Lymphatic Hematologic/Lymphatic: Reports system reviewed and no additional complaints, except as documented and Denies lymphadenopathy Allergic/Immunologic Allergic/Immunologic: Reports system reviewed and no additional complaints, except as documented, Denies throat swelling, Denies urticaria and Denies wheezing Past Medical History Past Medical History CARDIAC: Positive Hypercholesterolemia and Deep Vein Thrombosis; Negative Cardiac Disorders or Congestive Heart Failure RESPIRATORY: Positive Pulmonary Embolism; Negative Chronic Obstructive Pulmonary Disease (COPD) or Asthma GENITOURINARY: Negative Renal Disease MUSCULOSKELETAL: Positive Degenerative Disk Disease ENDOCRINE: Positive Hypothyroidism; Negative Diabetes Mellitus Type 1 or Diabetes Mellitus Type 2 HEMATOLOGIC: Negative Sickle Cell Disease Surgical History SURGICAL: Positive Tonsillectomy Social History SMOKING STATUS: Current every day smoker SUBSTANCE USE: does not use ED Exam General Limitations: Present no limitations General appearance: Present alert and in no apparent distress Head Head exam: Present atraumatic Eye Eye exam: Present normal appearance, PERRL and EOMI ENT ENT exam: Present normal exam, normal oropharynx and mucous membranes moist Neck Neck exam: Present normal inspection, full ROM and trachea midline Chest Chest inspection: Present normal inspection and symmetric chest wall rise Respiratory Respiratory exam: Present normal lung sounds bilaterally Cardiovascular Cardiovascular exam: Present regular rate, normal rhythm and normal heart sounds Abdominal Exam Abdominal exam: Present soft and normal bowel sounds Extremities Exam Extremities exam: Present normal inspection and full ROM Back Exam Back exam: Present normal inspection, full ROM, vertebral tenderness and sciatic notch tenderness (R) Neurological Exam Neurological exam: Present alert, oriented X3 and CN II-XII intact Psychiatric Psychiatric exam: Present normal affect and normal mood Skin Skin exam: Present warm, dry, intact and normal color Course Quality Measures none Orders Category Date Time Status Ketorolac Inj [Toradol Inj] Med 01/06/25 13:48 Discontinued 30 mg IM X1 ONE Vital Signs Vital signs: Vital Signs Temperature 98.5 F 01/06/25 13:37 Pulse Rate 89 01/06/25 13:37 Respiratory Rate 18 01/06/25 13:37 Blood Pressure 148/96 H 01/06/25 13:37 Pulse Oximetry (%) 99 01/06/25 13:37 Oxygen Delivery Method Room Air 01/06/25 13:37 Back Pain / Injury MDM Narrative MDM Narrative:: 59-year-old male with no known medical history presents to the emergency room with a chief complaint of right sciatic pain x 1 week Patient is hemodynamically stable and in no apparent distress Physical examination shows right sciatic notch tenderness with palpation. Patient denies any saddle anesthesia. There is no loss of bowel or bladder function. There is no numbness to the lower extremities. The patient is able to ambulate. Patient states he has an appointment coming up with a solar project coordination specialist as well as pain management Medication was given with significant improvement to his symptoms Patient was discharged and educated to follow-up with primary care provider in the next 24 to 48 hours and return to the emergency room for any evidence of worsening signs or symptoms Patient data External records reviewed:: [facility] previous records Clinical information provided by:: patient Social determinants that could affect healthcare access:: none Patient has the following chronic illnesses:: No chronic illness How is presenting disease/condition affected by chronic disease/condition?: no chronic disease Evaluation data The following diagnostics were reviewed and interpreted by me:: lab results and radiology exam(s) Lab and/or radiology exams considered but not ordered:: Labs and radiology exams considered and ordered Interpretation Summary: N/A Medications / Prescriptions Medications or Prescriptions considered but not ordered:: Medication given Medication administrations:: Medication Administration History Discontinued Medications Ketorolac Tromethamine (Ketorolac Inj 60 Mg/2 Ml Vial) 30 mg IM X1 ONE Stop: 01/06/25 13:49 Last Admin: 01/06/25 13:58 Dose: 30 mg Documented By: CASIE Medication given Consultations Consultation(s) initiated? (list below): No Diagnosis Differential diagnosis back pain/injury: sciatica, strain of lumbar region, thoracic back pain and discitis Most likely diagnosis given after review of the tests above:: Sciatica Admission Indicated Admission indicated?: not indicated Admission Request Was there a request for admission?: No Disposition Plan Disposition Plan: Discharge Discharge Attestation Discharge Attestation: The patient and all family members were given an opportunity to ask questions and understood the discharge instructions. Discharge instructions specifically effects, indications for sooner follow up or return to the emergency department, and the expected course of current diagnosis. Patient condition: Stable Discharge Plan Plan Patient Disposition: HOME (Self Care) Discharge Disposition comment: Stable Prescriptions/Referrals Prescriptions/Med Rec: No Action naproxen [Naprosyn] 500 mg tablet 500 mg PO BID PRN (Reason: pain) Qty: 30 0RF amoxicillin-pot clavulanate [Augmentin] 875-125 mg tablet 1 tab PO BID Qty: 20 0RF baclofen 20 mg tablet 20 mg PO TID PRN (Reason: Pain) hydrocodone-acetaminophen 5-325 mg tablet 1 tab PO TID MDD 3 PRN (Reason: pain) Qty: 20 0RF baclofen 20 mg tablet 20 mg PO TID PRN (Reason: pain) Qty: 30 0RF azithromycin 250 mg tablet See Rx Instructions .ROUTE .COMPLEX Qty: 6 0RF Rx Instructions: For 250 mg dose pack: take 500 mg today (day 1), then 250 mg for 4 days (days 2-5) albuterol sulfate 90 mcg/actuation HFA aerosol inhaler 2 puff inhalation QID PRN (Reason: shortness of breath or wheezing) Qty: 8.5 0RF dextromethorphan-guaifenesin 10-100 mg/5 mL liquid 10 ml PO Q8H PRN (Reason: cough) Qty: 500 0RF naproxen [Naprosyn] 500 mg tablet 500 mg PO BID Qty: 30 0RF hydrocodone-acetaminophen 5-325 mg tablet 1 tab PO BID MDD 2 Qty: 10 0RF ibuprofen 800 mg tablet 800 mg PO TID PRN (Reason: pain) Qty: 30 0RF hydrocodone-acetaminophen 5-325 mg tablet 1 tab PO BID MDD 10 PRN (Reason: pain) Qty: 6 0RF prednisone 50 mg tablet 50 mg PO QDAY Qty: 7 0RF methylprednisolone [Medrol (Dg)] 4 mg tablets,dose pack See Rx Instructions .ROUTE .COMPLEX Qty: 21 0RF Rx Instructions: TAKE DIRECTED ON PACK diazepam [Valium] 10 mg tablet 10 mg PO TID PRN (Reason: muscle spasm) Qty: 20 0RF diazepam [Valium] 10 mg tablet 10 mg PO TID PRN (Reason: muscle spasm) Qty: 10 0RF doxycycline monohydrate 100 mg capsule 100 mg PO BID Qty: 14 0RF apixaban 5 mg (74 tabs) tablets,dose pack 10 mg PO BID Qty: 74 0RF Rx Instructions: 2 tablets twice a day for 1 week and then 5 mg once a day Problem List Clinical Impression: Sciatica Patient/Caregiver Discharge Instructions Education Materials: ED Sciatica Additional Instructions: Please follow-up with your primary care provider in the next 24 to 48 hours For any evidence of worsening signs or symptoms return to the emergency room immediately Print Language: Tamazight Stand Alone Forms: Josiane Award Info., Work/School Release, Patient Portal Info Letter PA/SPECIAL DIET COOK Supervising Physician PA/[employer]CIAL DIET COOK Supervising Physician: Dr. Hanson
[2025-01-06] MEDS: KETOROLAC INJ 60 MG/2 ML VIAL 30 MG IM (13:58)
== END 2025-01-06 14:19 | disposition home or self-care (01) ==
PROVIDERS: Emergency Provider Family Medicine
DX: M54.31 Sciatica, right side (principal)
CPT/HCPCS: 96372; 99282; J1885

== ENCOUNTER 2025-01-09 10:03 | Emergency (ER) | payer MEDICAID, SELFPAY ==
[2025-01-09 10:17] VITALS: BP 166/78; PULSE 90; RESP 18; TEMP 36.9; O2SAT 99; BMI 33.7
--- NOTE | 2025-01-09 10:33 | XR_ITS ---
Examination: Duplex scan of the lower extremity, unilateral right Date and time of exam: January 09, 2025, 1117 hours INDICATIONS: Right leg pain beginning 1 year ago Technique: Duplex scan of the extremity veins using B-mode/grayscale imaging and Doppler spectral analysis and color flow Attention is directed to internal echogenicity, compression and augmentation involving these veins, color flow assessment, spectral analysis Findings: Major deep venous structures in the extremity demonstrate normal course and caliber. There is no evidence of deep vein thrombosis. Normal color flow and spectral analysis Impression: Negative for DVT..
--- NOTE | 2025-01-09 10:35 | PD.EDRME ---
Rapid Medical Screening Exam [facility] Arrival date/time: 01/09/25 10:03 59-year-old male with no known medical history presents to the emergency room with a chief complaint of right sciatic hip pain as well as pain and tenderness to his lower right leg x 1 week. Patient states he has not been taking his Eliquis for the last 2 months and he has a history of DVT I have greeted and performed a focused initial assessment of this patient. A comprehensive ED assessment and evaluation of the patient, analysis of all test results, and completion of the medical decision making process will be conducted by additional ED providers. Chief Complaint: Extremity Injury, Lower Time Seen by Provider: 01/09/25 10:16 Vital signs: Vital Signs Temperature 98.5 F 01/09/25 10:17 Pulse Rate 90 01/09/25 10:17 Respiratory Rate 18 01/09/25 10:17 Blood Pressure 166/78 H 01/09/25 10:17 Pulse Oximetry (%) 99 01/09/25 10:17 Oxygen Delivery Method Room Air 01/09/25 10:17 Vital signs reviewed by provider: Yes Exam: Right sciatic notch tenderness with palpation Right lower extremity swelling and tenderness Clinical Impression: DVT/sciatica/
[2025-01-09] MEDS: KETOROLAC INJ 60 MG/2 ML VIAL 30 MG IM (10:48)
[2025-01-09 11:16] LABS: Basophils # (Auto) 0.1 Thou/mm3 (0.0-0.2); Basophils % (Auto) 1 % (0-2.5); Eosinophils # (Auto) 0.2 Thou/mm3 (0.0-0.5); Eosinophils % (Auto) 2 % (0-10); Hematocrit 53.3 % (41.0-53.0); Hemoglobin 18.0 g/dL (13.5-16.0); Immature Granulocytes Auto 0.04 Thou/mm3 (0.00-0.00); Lymphocytes # (Auto) 2.8 Thou/mm3 (1.0-4.8); Lymphocytes % (Auto) 28 % (10-50); Mean Corpuscular HGB Conc 33.8 g/dl (31.0-37.0); Mean Corpuscular Hemoglobin 30.2 pg (25.0-35.0); Mean Corpuscular Volume 89 fL (80-100); Monocytes # (Auto) 0.7 Thou/mm3 (0.0-0.8); Monocytes % (Auto) 7 % (0-12); Neutrophils # (Auto) 6.2 Thou/mm3 (1.8-7.7); Neutrophils % (Auto) 61 % (37-80); Nucleated Red Blood Cell # 0.00 Thou/mm3 (0.00-0.00); Nucleated Red Blood Cell % 0 /100 WBC (0); Platelet Count 198 Thou/mm3 (140-440); RDW Standard Deviation 41.2 fL (35.1-43.9); Red Blood Count 5.97 Miln/mm3 (4.50-5.90); White Blood Count 10.0 Thou/mm3 (3.8-10.6)
[2025-01-09 11:27] LABS: INR 1.0 (0.9-1.3); Partial Thromboplastin Time 27.6 Seconds (22.0-36.0); Prothrombin Time 10.9 Seconds (9.0-12.2)
[2025-01-09 11:34] LABS: Alanine Aminotransferase 15 U/L (10-49); Albumin, Serum 5.0 gm/dL (3.5-5.0); Albumin/Globulin Ratio 1.7 (1.2-2.2); Alkaline Phosphatase 77 U/L (46-116); Anion Gap 8 (7-16); Aspartate Amino Transferase 16 U/L (0-34); BUN/Creatinine Ratio 9 Ratio (12-20); Bilirubin,Total 0.5 mg/dL (0.3-1.2); Blood Urea Nitrogen 11 mg/dL (9-23); Calcium 10.0 mg/dL (8.3-10.6); Calcium (Corrected) 10.0 mg/dL (8.5-10.1); Carbon Dioxide 30.4 mMol/L (20.0-31.0); Chloride 106 mMol/L (98-107); Creatinine (Component) 1.2 mg/dL (0.6-1.3); Estimated Creatinine Clearance 78.1 mL/min (>60); Globulin 3.0 gm/dL (2.3-3.5); Glucose 93 mg/dL (74-106); Osmolality,Calculated 286 (275-295); Potassium 4.5 mMol/L (3.4-5.1); Sodium 144 mMol/L (136-145); Total Protein 8.0 gm/dL (5.7-8.2); eGFR > 60 See Note
[2025-01-09 11:53] LABS: Collection Type, Urine Clean Catch; Squamous Epithelial Cell,Urine 0 /hpf (0-5)
[2025-01-09 12:02] LABS: Bilirubin,Urine Negative (Negative); Blood,Urine Negative (Negative); Clarity,Urine Clear (Clear/Hazy); Color,Urine Yellow (Lt Yel-Yel); Culture Indicated,Urine Not Indicated; Glucose, Urine Negative (Negative); Ketones,Urine Negative (Negative); Leukocyte Esterase,Urine Negative (Negative); Nitrite,Urine Negative (Negative); PH,Urine 7.0 (5.0-7.0); Protein,Urine Negative (Neg - Trace); RBC,Urine 2 /hpf (0-3); Specific Gravity,Urine 1.021 (1.001-1.035); Urobilinogen,Urine 3.0 mg/dL (0.0-1.0); WBC,Urine 2 /hpf (0-5)
[2025-01-09 12:07] LABS: Amphetamine/Methamp Scrn,U Negative (Negative); Barbiturate Screen,Urine Negative (Negative); Benzodiazepines Screen,Urine Positive (Negative); Benzoylecgonine Screen, Ur Negative (Negative); Fentanyl Screen,Urine Negative (Negative); Opiate Screen,Urine Negative (Negative); THC Screen,Urine Positive (Negative)
--- NOTE | 2025-01-09 14:07 | EDNOTE_ITS ---
ED General RME/HPI General Chief complaint: Extremity Injury, Lower Stated complaint: R) LEG PAIN Time Seen by Provider: 01/09/25 10:16 Arrival date/time: 01/09/25 10:03 CC: New chronic right leg pain HPI patient presents with this episode stating that his pain management medications are not working . Patient states he was given Toradol injection in the waiting room and the pain went away on the lateral aspect of the hip and now he has spasms on the inside of his upper leg . Patient denies fever chills shortness of breath difficulty breathing. Review of the medical record show that there is multiple visits for the same complaint in the last months. Patient is afebrile nontoxic-appearing not in any acute distress. RME / HPI RME / HPI narrative: 01/09/25 10:03 59-year-old male with no known medical history presents to the emergency room with a chief complaint of right sciatic hip pain as well as pain and tenderness to his lower right leg x 1 week. Patient states he has not been taking his Eliquis for the last 2 months and he has a history of DVT I have greeted and performed a focused initial assessment of this patient. A comprehensive ED assessment and evaluation of the patient, analysis of all test results, and completion of the medical decision making process will be conducted by additional ED providers. Exam: Right sciatic notch tenderness with palpation Right lower extremity swelling and tenderness Impression: DVT/sciatica/ Related Data Home Medications ?Medication ?Instructions ?Recorded ?Confirmed baclofen 20 mg tablet 20 mg PO TID PRN Pain 12/31/20 Previous Rx's ?Medication ?Instructions ?Recorded naproxen 500 mg tablet (Naprosyn) 500 mg PO BID PRN pa in #30 tabs 03/04/20 amoxicillin 875 mg-potassium 1 tab PO BID #20 tabs clavulanate 125 mg tablet (Augmentin) baclofen 20 mg tablet 20 mg PO TID PRN pain #30 ta bs 02/23/21 albuterol sulfate 90 mcg/actuation 2 puff inhalation Q ID PRN 03/14/21 aerosol inhaler shortness of breath or wheez ing #8.5 grams azithromycin 250 mg tablet See Rx Instructions PO .COM PLEX #6 03/14/21 tabs dextromethorphan-guaifenesin 10 10 ml PO Q8H PRN cough #500 mL 03/31/21 mg-100 mg/5 mL oral liquid hydrocodone 5 mg-acetaminophen 325 1 tab PO BID #10 ta bs 10/10/21 mg tablet naproxen 500 mg tablet (Naprosyn) 500 mg PO BID #30 ta bs 10/10/21 hydrocodone 5 mg-acetaminophen 325 1 tab PO TID PRN pa in #20 tabs 10/13/21 mg tablet hydrocodone 5 mg-acetaminophen 325 1 tab PO BID PRN pa in #6 tabs 10/16/22 mg tablet ibuprofen 800 mg tablet 800 mg PO TID PRN pain #30 t abs 10/16/22 doxycycline monohydrate 100 mg 100 mg PO BID #14 caps 03/20/23 capsule apixaban 5 mg (74 tabs) tablets in 10 mg (2 x 5 mg (74 tabs)) PO BID 10/25/23 a dose pack #74 tabs prednisone 50 mg tablet 50 mg PO QDAY #7 tabs methylprednisolone 4 mg tablets in See Rx Instructions .Route 04/25/24 a dose pack (Medrol (Dg)) .COMPLEX #21 tabs diazepam 10 mg tablet (Valium) 10 mg PO TID PRN muscle spasm #20 12/16/24 tabs diazepam 10 mg tablet (Valium) 10 mg PO TID PRN muscle spasm #10 12/22/24 tabs Allergies Allergy/AdvReac Type Severity Reaction Status Date / Time No Known Allergies Allergy Verified 01/09/25 10:07 Review of Systems Review of Systems Narrative Review of Systems: GEN: No fever, no chills, no weight loss EYES: No discharge, no visual changes, no pain HEENT: No ear pain, no congestion, no sore throat PULM: No shortness of breath, no cough, no congestion CV: No chest pain, no dyspnea on exertion, no palpitations GI: No nausea, no vomiting, no diarrhea, no pain, no constipation : No frequency, no urgency, no dysuria MUSC/SKEL: + joint pain, no back pain SKIN: No rash PSYCH: No hallucinations, no depression HEME/LYMPH: No easy bleeding or bruising tendencies NEURO: No weakness, no headache Past Medical History Past Medical History CARDIAC: Positive Hypercholesterolemia and Deep Vein Thrombosis; Negative Cardiac Disorders or Congestive Heart Failure RESPIRATORY: Positive Pulmonary Embolism; Negative Chronic Obstructive Pulmonary Disease (COPD) or Asthma GENITOURINARY: Negative Renal Disease MUSCULOSKELETAL: Positive Degenerative Disk Disease ENDOCRINE: Positive Hypothyroidism; Negative Diabetes Mellitus Type 1 or Diabetes Mellitus Type 2 HEMATOLOGIC: Negative Sickle Cell Disease Surgical History SURGICAL: Positive Tonsillectomy Social History SMOKING STATUS: Current every day smoker SUBSTANCE USE: does not use ED Exam Narrative Physical exam: [General: Ill kempt slightly disheveled, obese not in any acute distress Head normocephalic HEENT: Within acceptable limits Neck is supple nontender Chest equal chest rise nontender to palpation Respiratory: Clear to auscultation no wheezes crackles or rubs CV: Rate rhythm is regular no murmurs rubs or clicks Abdomen is distended secondary to body habitus soft nontender no masses positive bowel sounds all 4 quadrants Back: No CVA tenderness no spinous process tenderness from cervical spine thoracic and lumbar spine Skin: Intact no petechiae rash induration ulceration or crepitus Extremities: Moving all extremity against resistance cap refill less than 2 seconds neurosensory intact Neuro: Awake alert oriented x3 Glascow coma 15 no focal deficits] Course Quality Measures none Orders Category Date Time Status US venous doppler LE RT Stat Exams 01/09/25 10:33 Completed CBC Stat Lab 01/09/25 10:39 Completed CMP [Comprehensive Metabolic Panel] Stat Lab 01/09/25 10:39 Completed Drug Screen,Urine Stat Lab 01/09/25 11:43 Completed PT [Prothrombin Time with INR] Stat Lab 01/09/25 10:39 Completed PTT [Partial Thromboplastin Time] Stat Lab 01/09/25 10:39 Completed UA, C/S IF [Urinalysis, C/S if Indicated] Stat Lab 01/09/25 11:43 Completed Diazepam [Valium] Med 01/09/25 14:07 Once 10 mg PO X1 ONE Ketorolac Inj [Toradol Inj] Med 01/09/25 10:35 Discontinued 30 mg IM X1 ONE Vital Signs Vital signs: Vital Signs Temperature 98.5 F 01/09/25 10:17 Pulse Rate 90 01/09/25 10:17 Respiratory Rate 18 01/09/25 10:17 Blood Pressure 166/78 H 01/09/25 10:17 Pulse Oximetry (%) 99 01/09/25 10:17 Oxygen Delivery Method Room Air 01/09/25 10:17 Discharge Plan Plan Patient Disposition: HOME (Self Care) Patient condition on transfer: Stable Prescriptions/Referrals Prescriptions/Med Rec: No Action naproxen [Naprosyn] 500 mg tablet 500 mg PO BID PRN (Reason: pain) Qty: 30 0RF amoxicillin-pot clavulanate [Augmentin] 875-125 mg tablet 1 tab PO BID Qty: 20 0RF baclofen 20 mg tablet 20 mg PO TID PRN (Reason: Pain) hydrocodone-acetaminophen 5-325 mg tablet 1 tab PO TID MDD 3 PRN (Reason: pain) Qty: 20 0RF baclofen 20 mg tablet 20 mg PO TID PRN (Reason: pain) Qty: 30 0RF azithromycin 250 mg tablet See Rx Instructions .ROUTE .COMPLEX Qty: 6 0RF Rx Instructions: For 250 mg dose pack: take 500 mg today (day 1), then 250 mg for 4 days (days 2-5) albuterol sulfate 90 mcg/actuation HFA aerosol inhaler 2 puff inhalation QID PRN (Reason: shortness of breath or wheezing) Qty: 8.5 0RF dextromethorphan-guaifenesin 10-100 mg/5 mL liquid 10 ml PO Q8H PRN (Reason: cough) Qty: 500 0RF naproxen [Naprosyn] 500 mg tablet 500 mg PO BID Qty: 30 0RF hydrocodone-acetaminophen 5-325 mg tablet 1 tab PO BID MDD 2 Qty: 10 0RF ibuprofen 800 mg tablet 800 mg PO TID PRN (Reason: pain) Qty: 30 0RF hydrocodone-acetaminophen 5-325 mg tablet 1 tab PO BID MDD 10 PRN (Reason: pain) Qty: 6 0RF prednisone 50 mg tablet 50 mg PO QDAY Qty: 7 0RF methylprednisolone [Medrol (Dg)] 4 mg tablets,dose pack See Rx Instructions .ROUTE .COMPLEX Qty: 21 0RF Rx Instructions: TAKE DIRECTED ON PACK diazepam [Valium] 10 mg tablet 10 mg PO TID PRN (Reason: muscle spasm) Qty: 20 0RF diazepam [Valium] 10 mg tablet 10 mg PO TID PRN (Reason: muscle spasm) Qty: 10 0RF doxycycline monohydrate 100 mg capsule 100 mg PO BID Qty: 14 0RF apixaban 5 mg (74 tabs) tablets,dose pack 10 mg PO BID Qty: 74 0RF Rx Instructions: 2 tablets twice a day for 1 week and then 5 mg once a day Referrals: Kylah Franklin PA-C [Primary Care Provider] - In 1 week Problem List Clinical Impression: Chronic leg pain Patient/Caregiver Discharge Instructions Other Activity Instructions:: Follow-up with your primary care pain management on 20 January as stated do not return to the emergency room for chronic pain. Education Materials: ED Chronic Pain Print Language: Bermudian Stand Alone Forms: Josiane Award Info., Work/School Release, Patient Portal Info Letter OSIEL/ROSI Supervising Physician TOBIN Supervising Physician: Earnest SHANKS Clinical Information Provided by: patient Medical Records reviewed [facility] Meds/Rx considered, not ordered None Labs/Rad/Tests considered, not ordered None Chronic Illness/Social Conditions Explain: Chronic leg pain obesity EKG EKG not done Labs Labs: interpreted by me Imaging Imaging Interpretation(s): CBC shows no acute leukocytosis patient is a hemoglobin of 18 hematocrit of 53.3 no thrombocytopenia Coags within acceptable limits CMP shows no significant electrolyte imbalances renal impairment transaminitis or T. bili elevation UDS is positive for benzos and marijuana. Ultrasound is negative for DVT. Medication Administration(s) Medication Administration History Diazepam (Diazepam 5 Mg Tablet) 10 mg PO X1 ONE Stop: 01/09/25 14:08 Discontinued Medications Ketorolac Tromethamine (Ketorolac Inj 60 Mg/2 Ml Vial) 30 mg IM X1 ONE Stop: 01/09/25 10:36 Last Admin: 01/09/25 10:48 Dose: 30 mg Documented By: SONDRA Diagnosis Differential Diagnosis ED Complaint MDM: DVT chronic leg pain acute on chronic leg pain
[2025-01-09] MEDS: DIAZEPAM 5 MG TABLET 10 MG PO (14:27)
== END 2025-01-09 14:58 | disposition home or self-care (01) ==
PROVIDERS: Nurse Practitioner Family; Emergency Provider Emergency Medicine; PCP Physician Assistant Medical
DX: M79.604 Pain in right leg (principal)
CPT/HCPCS: 36415; 80053; 80307; 81001; 85025; 85610; 85730; 93971; 96372; 99283; J1885; A9270

== ENCOUNTER 2025-01-13 15:43 | Emergency (ER) | payer MEDICAID, SELFPAY ==
[2025-01-13 16:06] VITALS: BP 142/90; PULSE 87; RESP 20; TEMP 36.7; O2SAT 98; BMI 38.2
--- NOTE | 2025-01-13 16:13 | XR_ITS ---
EXAMINATION: Lumbar spine 3 views TECHNIQUE: AP lateral, lateral lower lumbar spine 3 views Date and time: January 13, 2025, 1700 hours, comparison October 11, 2022 INDICATIONS: Low back pain radiating to the legs 18 months worse the last 2 to 3 days FINDINGS: Adequate alignment lumbar vertebral bodies No lumbar fracture Moderate to advanced disc narrowing L5-S1 No spondylolisthesis Mild lumbar spondylosis IMPRESSION: Moderate to advanced degenerative disc disease L5-S1
--- NOTE | 2025-01-13 16:15 | PD.EDRME ---
Rapid Medical Screening Exam RME Arrival date/time: 01/13/25 15:43 60-year-old male with a history of chronic back pain presents to the emergency room with a chief complaint of lumbar back pain and right sciatica pain x 2 days I have greeted and performed a focused initial assessment of this patient. A comprehensive ED assessment and evaluation of the patient, analysis of all test results, and completion of the medical decision making process will be conducted by additional ED providers. Chief Complaint: Back Pain/Injury Vital signs: Vital Signs Temperature 98.1 F 01/13/25 16:06 Pulse Rate 87 01/13/25 16:06 Respiratory Rate 20 01/13/25 16:06 Blood Pressure 142/90 H 01/13/25 16:06 Pulse Oximetry (%) 98 01/13/25 16:06 Oxygen Delivery Method Room Air 01/13/25 16:06 Vital signs reviewed by provider: Yes Exam: Right sciatic notch tenderness. Right tenderness to the lumbar. The patient spine Clear bilateral lung sounds Clinical Impression: Sciatica versus chronic leg pain
[2025-01-13] MEDS: KETOROLAC INJ 60 MG/2 ML VIAL 30 MG IM (16:39)
[2025-01-13 17:13] LABS: Collection Type, Urine Clean Catch
[2025-01-13 17:13] LABS: Basophils # (Auto) 0.1 Thou/mm3 (0.0-0.2); Basophils % (Auto) 1 % (0-2.5); Eosinophils # (Auto) 0.4 Thou/mm3 (0.0-0.5); Eosinophils % (Auto) 4 % (0-10); Hematocrit 53.1 % (41.0-53.0); Hemoglobin 18.0 g/dL (13.5-16.0); Immature Granulocytes Auto 0.03 Thou/mm3 (0.00-0.00); Lymphocytes # (Auto) 2.9 Thou/mm3 (1.0-4.8); Lymphocytes % (Auto) 31 % (10-50); Mean Corpuscular HGB Conc 33.9 g/dl (31.0-37.0); Mean Corpuscular Hemoglobin 30.1 pg (25.0-35.0); Mean Corpuscular Volume 89 fL (80-100); Monocytes # (Auto) 0.6 Thou/mm3 (0.0-0.8); Monocytes % (Auto) 6 % (0-12); Neutrophils # (Auto) 5.4 Thou/mm3 (1.8-7.7); Neutrophils % (Auto) 58 % (37-80); Nucleated Red Blood Cell # 0.00 Thou/mm3 (0.00-0.00); Nucleated Red Blood Cell % 0 /100 WBC (0); Platelet Count 195 Thou/mm3 (140-440); RDW Standard Deviation 40.6 fL (35.1-43.9); Red Blood Count 5.98 Miln/mm3 (4.50-5.90); White Blood Count 9.3 Thou/mm3 (3.8-10.6)
[2025-01-13 17:24] LABS: Amphetamine/Methamp Scrn,U Negative (Negative); Barbiturate Screen,Urine Negative (Negative); Benzodiazepines Screen,Urine Positive (Negative); Benzoylecgonine Screen, Ur Negative (Negative); Bilirubin,Urine Negative (Negative); Blood,Urine Negative (Negative); Clarity,Urine Clear (Clear/Hazy); Color,Urine Yellow (Lt Yel-Yel); Culture Indicated,Urine Not Indicated; Fentanyl Screen,Urine Negative (Negative); Glucose, Urine Negative (Negative); Hyaline Casts,Urine < 1 /hpf (0-1); Ketones,Urine Negative (Negative); Leukocyte Esterase,Urine Negative (Negative); Nitrite,Urine Negative (Negative); Opiate Screen,Urine Negative (Negative); PH,Urine 6.5 (5.0-7.0); Protein,Urine Trace (Neg - Trace); RBC,Urine 5 /hpf (0-3); Specific Gravity,Urine 1.030 (1.001-1.035); Squamous Epithelial Cell,Urine < 1 /hpf (0-5); THC Screen,Urine Positive (Negative); Urobilinogen,Urine 6.0 mg/dL (0.0-1.0); WBC,Urine 1 /hpf (0-5)
[2025-01-13 17:33] LABS: Alanine Aminotransferase 18 U/L (10-49); Albumin, Serum 4.8 gm/dL (3.5-5.0); Albumin/Globulin Ratio 1.5 (1.2-2.2); Alkaline Phosphatase 82 U/L (46-116); Anion Gap 6 (7-16); Aspartate Amino Transferase 20 U/L (0-34); BUN/Creatinine Ratio 8 Ratio (12-20); Bilirubin,Total 0.6 mg/dL (0.3-1.2); Blood Urea Nitrogen 9 mg/dL (9-23); Calcium 10.0 mg/dL (8.3-10.6); Calcium (Corrected) 10.0 mg/dL (8.5-10.1); Carbon Dioxide 28.3 mMol/L (20.0-31.0); Chloride 108 mMol/L (98-107); Creatinine (Component) 1.2 mg/dL (0.6-1.3); Estimated Creatinine Clearance 95.4 mL/min (>60); Globulin 3.1 gm/dL (2.3-3.5); Glucose 83 mg/dL (74-106); Osmolality,Calculated 280 (275-295); Potassium 3.8 mMol/L (3.4-5.1); Sodium 142 mMol/L (136-145); Total Protein 7.9 gm/dL (5.7-8.2); eGFR > 60 See Note
--- NOTE | 2025-01-13 18:32 | PD.EDBACK ---
ED Back Injury Pain RME/HPI General Chief Complaint: Back Pain/Injury Stated Complaint: SCIATICA PAIN Time Seen by Provider: 01/13/25 17:57 Arrival date/time: 60-year-old male patient who is known to us, with history of chronic back pain and sciatica, came in for evaluation regarding worsening back pain with sciatica for the last 2 days. Patient pain is described as dull ache, severity moderate. Patient told me that he ran out of his Valium for the last few days. He is scheduled to see his pain management MD in 3 days. Patient denies any urinary or bowel incontinence. Denies any other complaints or medications taken prior to episode. Patient is ambulatory with help. RME / HPI RME / HPI Narrative: 01/13/25 15:43 60-year-old male with a history of chronic back pain presents to the emergency room with a chief complaint of lumbar back pain and right sciatica pain x 2 days I have greeted and performed a focused initial assessment of this patient. A comprehensive ED assessment and evaluation of the patient, analysis of all test results, and completion of the medical decision making process will be conducted by additional ED providers. Exam: Right sciatic notch tenderness. Right tenderness to the lumbar. The patient spine Clear bilateral lung sounds Impression: Sciatica versus chronic leg pain Related Data Home Medications ?Medication ?Instructions ?Recorded ?Confirmed baclofen 20 mg tablet 20 mg PO TID PRN Pain 12/31/20 12/31/20 Previous Rx's ?Medication ?Instructions ?Recorded naproxen 500 mg tablet (Naprosyn) 500 mg PO BID PRN pain #30 tabs 03/04/20 amoxicillin 875 mg-potassium 1 tab PO BID #20 tabs 12/30/20 clavulanate 125 mg tablet (Augmentin) baclofen 20 mg tablet 20 mg PO TID PRN pain #30 tabs 02/23/21 albuterol sulfate 90 mcg/actuation 2 puff inhalation QID PRN 03/14/21 aerosol inhaler shortness of breath or wheezing #8.5 grams azithromycin 250 mg tablet See Rx Instructions PO .COMPLEX #6 03/14/21 tabs dextromethorphan-guaifenesin 10 10 ml PO Q8H PRN cough #500 mL 03/31/21 mg-100 mg/5 mL oral liquid hydrocodone 5 mg-acetaminophen 325 1 tab PO BID #10 tabs 10/10/21 mg tablet naproxen 500 mg tablet (Naprosyn) 500 mg PO BID #30 tabs 10/10/21 hydrocodone 5 mg-acetaminophen 325 1 tab PO TID PRN pain #20 tabs 10/13/21 mg tablet hydrocodone 5 mg-acetaminophen 325 1 tab PO BID PRN pain #6 tabs 10/16/22 mg tablet ibuprofen 800 mg tablet 800 mg PO TID PRN pain #30 tabs 10/16/22 doxycycline monohydrate 100 mg 100 mg PO BID #14 caps 03/20/23 capsule apixaban 5 mg (74 tabs) tablets in 10 mg (2 x 5 mg (74 tabs)) PO BID 10/25/23 a dose pack #74 tabs prednisone 50 mg tablet 50 mg PO QDAY #7 tabs 10/25/23 methylprednisolone 4 mg tablets in See Rx Instructions .Route 04/25/24 a dose pack (Medrol (Dg)) .COMPLEX #21 tabs diazepam 10 mg tablet (Valium) 10 mg PO TID PRN muscle spasm #20 12/16/24 tabs diazepam 10 mg tablet (Valium) 10 mg PO TID PRN muscle spasm #10 12/22/24 tabs diazepam 10 mg tablet (Valium) 10 mg PO BID PRN muscle spasm #10 01/13/25 tabs Allergies Allergy/AdvReac Type Severity Reaction Status Date / Time No Known Allergies Allergy Verified 01/13/25 15:45 Review of Systems Review of Systems Narrative Review of Systems: Review of system reviewed and within normal limits except mentioned in HPI ED Exam Narrative Physical exam: VITAL SIGNS: Reviewed. GENERAL APPEARANCE: Alert and interactive, follows commands, no acute distress, HEAD AND FACE: Non-traumatic. ENT: PERRL, pink conjunctivitis, eyelid no trauma, Mucous membrane moist. NECK: Supple, nontender, no nuchal rigidity. CHEST: No tenderness, no crepitus, no paradoxical movement, no retractions. LUNGS: Clear, well ventilated, symmetric, no rales, no wheezing, no ronchi, no stridor, good breath sounds bilaterally. HEART: Regular rate, regular rhythm, no murmur, no gallops. ABDOMEN: Soft, positive bowel sounds, nondistended, no guarding, nontender, no rebound, no masses, RECTAL: Deferred. GENITAL: Deferred. NEUROLOGICAL: Gross motor function intact sensory function intact, Appropriate for age. MUSCULOSKELETAL: low back tenderness, full range of motion. EXTREMITIES: Nontender, full range of motion. Positive straight leg raising test on the right at 45 degrees SKIN: Color pink, dry, no rash, no lacerations, no abrasions, no contusions. LYMPHATICS: Deferred. Course Quality Measures none Orders Category Date Time Status XR lumbar spine 2-3V Stat Exams 01/13/25 16:13 Completed CBC Stat Lab 01/13/25 16:45 Completed CMP [Comprehensive Metabolic Panel] Stat Lab 01/13/25 16:45 Completed Drug Screen,Urine Stat Lab 01/13/25 17:01 Completed UA, C/S IF [Urinalysis, C/S if Indicated] Stat Lab 01/13/25 17:01 Completed Diazepam [Valium] Med 01/13/25 18:31 Once 10 mg PO X1 ONE Ketorolac Inj [Toradol Inj] Med 01/13/25 16:13 Discontinued 30 mg IM X1 ONE Vital Signs Vital signs: Vital Signs Temperature 98.1 F 01/13/25 16:06 Pulse Rate 87 01/13/25 16:06 Respiratory Rate 20 01/13/25 16:06 Blood Pressure 142/90 H 01/13/25 16:06 Pulse Oximetry (%) 98 01/13/25 16:06 Oxygen Delivery Method Room Air 01/13/25 16:06 Back Pain / Injury MDM Narrative MDM Narrative:: 60-year-old male patient who is known to us, with history of chronic back pain and sciatica, came in for evaluation regarding worsening back pain with sciatica for the last 2 days. Patient pain is described as dull ache, severity moderate. Patient told me that he ran out of his Valium for the last few days. He is scheduled to see his pain management MD in 3 days. Patient denies any urinary or bowel incontinence. Denies any other complaints or medications taken prior to episode. Patient is ambulatory with help. Patient's workup today all came back unremarkable. Was given Toradol and Valium in the emergency room. X-ray of the lumbar spine showed lumbar disc disease between L5 and S1 Stable for discharge home further imaging is not needed patient is not showing any cauda equina syndrome Patient data External records reviewed:: None Clinical information provided by:: patient Social determinants that could affect healthcare access:: none Patient has the following chronic illnesses:: Chronic back How is presenting disease/condition affected by chronic disease/condition?: exacerbated by Evaluation data The following diagnostics were reviewed and interpreted by me:: lab results and radiology exam(s) Lab and/or radiology exams considered but not ordered:: None Interpretation Summary: See above Medications / Prescriptions Medications or Prescriptions considered but not ordered:: None Medication administrations:: Medication Administration History Discontinued Medications Ketorolac Tromethamine (Ketorolac Inj 60 Mg/2 Ml Vial) 30 mg IM X1 ONE Stop: 01/13/25 16:14 Last Admin: 01/13/25 16:39 Dose: 30 mg Documented By: Toradol IM, Valium Consultations Consultation(s) initiated? (list below): No Diagnosis Differential diagnosis back pain/injury: lumbar radiculopathy, sciatica and strain of lumbar region Most likely diagnosis given after review of the tests above:: Chronic low back pain, sciatica Admission Indicated Admission indicated?: not indicated Admission Request Was there a request for admission?: No Disposition Plan Disposition Plan: Discharge Discharge Attestation Discharge Attestation: The patient and all family members were given an opportunity to ask questions and understood the discharge instructions. Discharge instructions specifically effects, indications for sooner follow up or return to the emergency department, and the expected course of current diagnosis. Patient condition: Stable Discharge Plan Plan Patient Disposition: HOME (Self Care) Discharge Disposition comment: stable Prescriptions/Referrals Prescriptions/Med Rec: New diazepam [Valium] 10 mg tablet 10 mg PO BID PRN (Reason: muscle spasm) Qty: 10 0RF No Action naproxen [Naprosyn] 500 mg tablet 500 mg PO BID PRN (Reason: pain) Qty: 30 0RF amoxicillin-pot clavulanate [Augmentin] 875-125 mg tablet 1 tab PO BID Qty: 20 0RF baclofen 20 mg tablet 20 mg PO TID PRN (Reason: Pain) hydrocodone-acetaminophen 5-325 mg tablet 1 tab PO TID MDD 3 PRN (Reason: pain) Qty: 20 0RF baclofen 20 mg tablet 20 mg PO TID PRN (Reason: pain) Qty: 30 0RF azithromycin 250 mg tablet See Rx Instructions .ROUTE .COMPLEX Qty: 6 0RF Rx Instructions: For 250 mg dose pack: take 500 mg today (day 1), then 250 mg for 4 days (days 2-5) albuterol sulfate 90 mcg/actuation HFA aerosol inhaler 2 puff inhalation QID PRN (Reason: shortness of breath or wheezing) Qty: 8.5 0RF dextromethorphan-guaifenesin 10-100 mg/5 mL liquid 10 ml PO Q8H PRN (Reason: cough) Qty: 500 0RF naproxen [Naprosyn] 500 mg tablet 500 mg PO BID Qty: 30 0RF hydrocodone-acetaminophen 5-325 mg tablet 1 tab PO BID MDD 2 Qty: 10 0RF ibuprofen 800 mg tablet 800 mg PO TID PRN (Reason: pain) Qty: 30 0RF hydrocodone-acetaminophen 5-325 mg tablet 1 tab PO BID MDD 10 PRN (Reason: pain) Qty: 6 0RF prednisone 50 mg tablet 50 mg PO QDAY Qty: 7 0RF methylprednisolone [Medrol (Dg)] 4 mg tablets,dose pack See Rx Instructions .ROUTE .COMPLEX Qty: 21 0RF Rx Instructions: TAKE DIRECTED ON PACK diazepam [Valium] 10 mg tablet 10 mg PO TID PRN (Reason: muscle spasm) Qty: 20 0RF diazepam [Valium] 10 mg tablet 10 mg PO TID PRN (Reason: muscle spasm) Qty: 10 0RF doxycycline monohydrate 100 mg capsule 100 mg PO BID Qty: 14 0RF apixaban 5 mg (74 tabs) tablets,dose pack 10 mg PO BID Qty: 74 0RF Rx Instructions: 2 tablets twice a day for 1 week and then 5 mg once a day Referrals: Kylah Franklin PA-C [Primary Care Provider] - In 1 week Problem List Clinical Impression: Sciatica, Chronic low back pain Patient/Caregiver Discharge Instructions Discharge Activity: activity as tolerated Education Materials: ED Sciatica Additional Instructions: Thank you for the opportunity for serving you today. You are stable for discharged . You are advised to: Follow-up with your pain management doctor in 1 to 2 days Return to ED for worsening of symptoms Increase oral fluids Take medication as prescribed Print Language: Frisian Stand Alone Forms: Josiane Award Info., Patient Portal Info Letter OSIEL/ROSI Supervising Physician OSIEL/ROSI Supervising Physician: Dr Simmons
[2025-01-13] MEDS: DIAZEPAM 5 MG TABLET 10 MG PO (18:43)
== END 2025-01-13 18:51 | disposition home or self-care (01) ==
PROVIDERS: Nurse Practitioner Family; Emergency Provider Emergency Medicine; PCP Physician Assistant Medical
DX: M54.41 Lumbago with sciatica, right side (principal); G89.29 Other chronic pain
CPT/HCPCS: 36415; 72100; 80053; 80307; 81001; 85025; 96372; 99283; J1885; A9270

== ENCOUNTER 2025-01-16 15:48 | Emergency (ER) | payer MEDICAID, SELFPAY ==
[2025-01-16 16:14] VITALS: BP 150/94; PULSE 89; RESP 18; TEMP 36.8; O2SAT 97; BMI 38.2
--- NOTE | 2025-01-16 16:32 | EDNOTE_ITS ---
<Statement entered by Meseret Chiu MD - 01/16/25 17:06> As co-signing physician, I was present and available for consult prn. I concur with the plan and care as documented by the midlevel provider. Lower Extremity Injury RME/HPI General Chief Complaint: Extremity Injury, Lower Stated Complaint: RT LEG SCIATICA PAIN Time Seen by Provider: 01/16/25 15:49 Arrival date/time: 01/16/25 15:48 60-year-old male with a history of chronic lower back pain and left lower extremity lumbar radiculopathy reports with complaints of persistent pain in the lumbar spine. Patient has been seen in the past 2 days given Toradol and Valium for the pain and reports improvement. Patient states that he has an appointment with pain management as his prescribed medications of baclofen Mobic and gabapentin no longer work. He reports numbness and tingling left lower extremity with radiating pain. He denies any dysuria urinary urgency frequency or hematuria Limitations: no limitations Related Data Home Medications ?Medication ?Instructions ?Recorded ?Confirmed baclofen 20 mg tablet 20 mg PO TID PRN Pain 12/31/20 Previous Rx's ?Medication ?Instructions ?Recorded naproxen 500 mg tablet (Naprosyn) 500 mg PO BID PRN pa in #30 tabs 03/04/20 amoxicillin 875 mg-potassium 1 tab PO BID #20 tabs clavulanate 125 mg tablet (Augmentin) baclofen 20 mg tablet 20 mg PO TID PRN pain #30 ta bs 02/23/21 albuterol sulfate 90 mcg/actuation 2 puff inhalation Q ID PRN 03/14/21 aerosol inhaler shortness of breath or wheez ing #8.5 grams azithromycin 250 mg tablet See Rx Instructions PO .COM PLEX #6 03/14/21 tabs dextromethorphan-guaifenesin 10 10 ml PO Q8H PRN cough #500 mL 03/31/21 mg-100 mg/5 mL oral liquid hydrocodone 5 mg-acetaminophen 325 1 tab PO BID #10 ta bs 10/10/21 mg tablet naproxen 500 mg tablet (Naprosyn) 500 mg PO BID #30 ta bs 10/10/21 hydrocodone 5 mg-acetaminophen 325 1 tab PO TID PRN pa in #20 tabs 10/13/21 mg tablet hydrocodone 5 mg-acetaminophen 325 1 tab PO BID PRN pa in #6 tabs 10/16/22 mg tablet ibuprofen 800 mg tablet 800 mg PO TID PRN pain #30 t abs 10/16/22 doxycycline monohydrate 100 mg 100 mg PO BID #14 caps 03/20/23 capsule apixaban 5 mg (74 tabs) tablets in 10 mg (2 x 5 mg (74 tabs)) PO BID 10/25/23 a dose pack #74 tabs prednisone 50 mg tablet 50 mg PO QDAY #7 tabs methylprednisolone 4 mg tablets in See Rx Instructions .Route 04/25/24 a dose pack (Medrol (Dg)) .COMPLEX #21 tabs diazepam 10 mg tablet (Valium) 10 mg PO TID PRN muscle spasm #20 12/16/24 tabs diazepam 10 mg tablet (Valium) 10 mg PO TID PRN muscle spasm #10 12/22/24 tabs diazepam 10 mg tablet (Valium) 10 mg PO BID PRN muscle spasm #10 01/13/25 tabs Allergies Allergy/AdvReac Type Severity Reaction Status Date / Time No Known Allergies Allergy Verified 01/13/25 15:45 Review of Systems Genitourinary Genitourinary: Denies dysuria and Denies urinary incontinence Musculoskeletal Musculoskeletal: Reports back pain, Denies deformity, Reports numbness and Reports tingling Integumentary/Breasts Skin/Breast: Denies skin swelling and Denies unusual bruising Neurologic Neurologic: Reports numbness and Reports tingling ED Exam General Limitations: Present no limitations General appearance: Present alert and in no apparent distress ENT ENT exam: Present normal exam, normal oropharynx and mucous membranes moist Extremities Exam Extremities exam: Present normal inspection; Absent full ROM (Unable to assess secondary to complaint of pain) Back Exam Back exam: Present normal inspection and tenderness (Approximately L4 along left sciatic nerve to mid buttock); Absent full ROM (Unable to assess secondary to pain) Neurological Exam Neurological exam: Present alert, oriented X3 and CN II-XII intact Psychiatric Psychiatric exam: Present normal affect and normal mood Skin Skin exam: Present warm, dry, intact and normal color Course Quality Measures none Orders Category Date Time Status Diazepam Inj [Valium Inj] Med 01/16/25 16:31 Once 10 mg IVP X1 ONE Ketorolac Inj [Toradol Inj] Med 01/16/25 16:31 Once 60 mg IM X1 ONE Vital Signs Vital signs: Vital Signs Temperature 98.2 F 01/16/25 16:14 Pulse Rate 89 01/16/25 16:14 Respiratory Rate 18 01/16/25 16:14 Blood Pressure 150/94 H 01/16/25 16:14 Pulse Oximetry (%) 97 01/16/25 16:14 Oxygen Delivery Method Room Air 01/16/25 16:14 Extremity Injury, Lower Patient data External records reviewed:: None Clinical information provided by:: patient Social determinants that could affect healthcare access:: none Patient has the following chronic illnesses:: Chronic lower back pain and chronic lumbar radiculopathy How is presenting disease/condition affected by chronic disease/condition?: caused by Evaluation data The following diagnostics were reviewed and interpreted by me:: other (specify) Lab and/or radiology exams considered but not ordered:: None Interpretation Summary: ? Medications / Prescriptions Medications or Prescriptions considered but not ordered:: None Medication administrations:: Toradol and Valium Consultations Consultation(s) initiated? (list below): No Diagnosis Most likely diagnosis given after review of the tests above:: Chronic lower back pain, lumbar radiculopathy Admission Indicated Admission indicated?: not indicated Admission Request Was there a request for admission?: No Disposition Plan Disposition Plan: Discharge Discharge Attestation Discharge Attestation: The patient and all family members were given an opportunity to ask questions and understood the discharge instructions. Discharge instructions specifically effects, indications for sooner follow up or return to the emergency department, and the expected course of current diagnosis. Patient condition: Stable Discharge Plan Plan Patient Disposition: HOME (Self Care) Prescriptions/Referrals Prescriptions/Med Rec: No Action naproxen [Naprosyn] 500 mg tablet 500 mg PO BID PRN (Reason: pain) Qty: 30 0RF amoxicillin-pot clavulanate [Augmentin] 875-125 mg tablet 1 tab PO BID Qty: 20 0RF baclofen 20 mg tablet 20 mg PO TID PRN (Reason: Pain) hydrocodone-acetaminophen 5-325 mg tablet 1 tab PO TID MDD 3 PRN (Reason: pain) Qty: 20 0RF baclofen 20 mg tablet 20 mg PO TID PRN (Reason: pain) Qty: 30 0RF azithromycin 250 mg tablet See Rx Instructions .ROUTE .COMPLEX Qty: 6 0RF Rx Instructions: For 250 mg dose pack: take 500 mg today (day 1), then 250 mg for 4 days (days 2-5) albuterol sulfate 90 mcg/actuation HFA aerosol inhaler 2 puff inhalation QID PRN (Reason: shortness of breath or wheezing) Qty: 8.5 0RF dextromethorphan-guaifenesin 10-100 mg/5 mL liquid 10 ml PO Q8H PRN (Reason: cough) Qty: 500 0RF naproxen [Naprosyn] 500 mg tablet 500 mg PO BID Qty: 30 0RF hydrocodone-acetaminophen 5-325 mg tablet 1 tab PO BID MDD 2 Qty: 10 0RF ibuprofen 800 mg tablet 800 mg PO TID PRN (Reason: pain) Qty: 30 0RF hydrocodone-acetaminophen 5-325 mg tablet 1 tab PO BID MDD 10 PRN (Reason: pain) Qty: 6 0RF prednisone 50 mg tablet 50 mg PO QDAY Qty: 7 0RF methylprednisolone [Medrol (Dg)] 4 mg tablets,dose pack See Rx Instructions .ROUTE .COMPLEX Qty: 21 0RF Rx Instructions: TAKE DIRECTED ON PACK diazepam [Valium] 10 mg tablet 10 mg PO TID PRN (Reason: muscle spasm) Qty: 20 0RF diazepam [Valium] 10 mg tablet 10 mg PO TID PRN (Reason: muscle spasm) Qty: 10 0RF doxycycline monohydrate 100 mg capsule 100 mg PO BID Qty: 14 0RF apixaban 5 mg (74 tabs) tablets,dose pack 10 mg PO BID Qty: 74 0RF Rx Instructions: 2 tablets twice a day for 1 week and then 5 mg once a day diazepam [Valium] 10 mg tablet 10 mg PO BID PRN (Reason: muscle spasm) Qty: 10 0RF Problem List Clinical Impression: Chronic low back pain, Chronic lumbar radiculopathy Patient/Caregiver Discharge Instructions Discharge Activity: activity as tolerated Education Materials: ED Sciatica Additional Instructions: Follow-up with your specialist as planned tomorrow and hydrate well Print Language: Panamanian Stand Alone Forms: Josiane Award Info., Patient Portal Info Letter
[2025-01-16] MEDS: KETOROLAC INJ 60 MG/2 ML VIAL IM (17:09)
[2025-01-16] MEDS: DIAZEPAM 5 MG TABLET 10 MG PO (17:19)
== END 2025-01-16 19:27 | disposition home or self-care (01) ==
LOC: SERX 17:23
PROVIDERS: Emergency Provider Physician Assistant; PCP Physician Assistant Medical
DX: M54.16 Radiculopathy, lumbar region (principal)
CPT/HCPCS: 96372; 99282; J1885; A9270

== ENCOUNTER 2025-01-17 11:46 | Emergency (ER) | payer MEDICAID, SELFPAY ==
[2025-01-17 11:56] VITALS: BP 154/83; PULSE 61; RESP 18; TEMP 37; O2SAT 97; BMI 38.2
--- NOTE | 2025-01-17 12:03 | EDNOTE_ITS ---
<Statement entered by Meseret Chiu MD - 01/28/25 06:32> As co-signing physician, I was present and available for consult prn. I concur with the plan and care as documented by the midlevel provider. ED Back Injury Pain RME/HPI General Chief Complaint: Back Pain/Injury Stated Complaint: BACK/SCIATIC PAIN 11/25 Time Seen by Provider: 01/17/25 12:03 Arrival date/time: 01/17/25 11:46 60-year-old male presents to the Emergency Department today for complaints of back pain patient reports that is acute on chronic patient reports no fever nausea or vomiting no abdominal pain no saddle anesthesia or loss of bowel or bladder. Limitations: no limitations Related Data Home Medications ?Medication ?Instructions ?Recorded ?Confirmed baclofen 20 mg tablet 20 mg PO TID PRN Pain 12/31/20 Previous Rx's ?Medication ?Instructions ?Recorded naproxen 500 mg tablet (Naprosyn) 500 mg PO BID PRN pa in #30 tabs 03/04/20 amoxicillin 875 mg-potassium 1 tab PO BID #20 tabs clavulanate 125 mg tablet (Augmentin) baclofen 20 mg tablet 20 mg PO TID PRN pain #30 ta bs 02/23/21 albuterol sulfate 90 mcg/actuation 2 puff inhalation Q ID PRN 03/14/21 aerosol inhaler shortness of breath or wheez ing #8.5 grams azithromycin 250 mg tablet See Rx Instructions PO .COM PLEX #6 03/14/21 tabs dextromethorphan-guaifenesin 10 10 ml PO Q8H PRN cough #500 mL 03/31/21 mg-100 mg/5 mL oral liquid hydrocodone 5 mg-acetaminophen 325 1 tab PO BID #10 ta bs 10/10/21 mg tablet naproxen 500 mg tablet (Naprosyn) 500 mg PO BID #30 ta bs 10/10/21 hydrocodone 5 mg-acetaminophen 325 1 tab PO TID PRN pa in #20 tabs 10/13/21 mg tablet hydrocodone 5 mg-acetaminophen 325 1 tab PO BID PRN pa in #6 tabs 10/16/22 mg tablet ibuprofen 800 mg tablet 800 mg PO TID PRN pain #30 t abs 10/16/22 doxycycline monohydrate 100 mg 100 mg PO BID #14 caps 03/20/23 capsule apixaban 5 mg (74 tabs) tablets in 10 mg (2 x 5 mg (74 tabs)) PO BID 10/25/23 a dose pack #74 tabs prednisone 50 mg tablet 50 mg PO QDAY #7 tabs methylprednisolone 4 mg tablets in See Rx Instructions .Route 04/25/24 a dose pack (Medrol (Dg)) .COMPLEX #21 tabs diazepam 10 mg tablet (Valium) 10 mg PO TID PRN muscle spasm #20 12/16/24 tabs diazepam 10 mg tablet (Valium) 10 mg PO TID PRN muscle spasm #10 12/22/24 tabs diazepam 10 mg tablet (Valium) 10 mg PO BID PRN muscle spasm #10 01/13/25 tabs hydrocodone 5 mg-acetaminophen 325 1 tab PO BID PRN pa in #8 tabs 01/17/25 mg tablet Allergies Allergy/AdvReac Type Severity Reaction Status Date / Time No Known Allergies Allergy Verified 01/17/25 11:50 Review of Systems Review of Systems Systems Reviewed: All systems reviewed, normal except as documented Constitutional Constitutional: Reports system reviewed and no additional complaints, except as documented, Denies fever(s) and Denies headache(s) Eyes Eyes: Reports system reviewed and no additional complaints, except as documented and Denies blurry vision ENT Ears, Nose, Mouth, and Throat: Reports system reviewed and no additional complaints, except as documented, Denies headache(s), Denies nasal congestion and Denies nasal discharge Cardiovascular Cardiovascular: Reports system reviewed and no additional complaints, except as documented, Denies chest pain and Denies dyspnea Respiratory Respiratory: Reports system reviewed and no additional complaints, except as documented, Denies chest congestion, Denies cough and Denies dyspnea Gastrointestinal Gastrointestinal: Reports system reviewed and no additional complaints, except as documented and Denies abdominal pain Musculoskeletal Musculoskeletal: Reports system reviewed and no additional complaints, except as documented and Reports back pain Integumentary/Breasts Skin/Breast: Reports system reviewed and no additional complaints, except as documented and Denies rash Neurologic Neurologic: Reports system reviewed and no additional complaints, except as do cumented, Reports as per HPI and Denies headache(s) Past Medical History Past Medical History CARDIAC: Positive Hypercholesterolemia and Deep Vein Thrombosis; Negative Cardiac Disorders or Congestive Heart Failure RESPIRATORY: Positive Pulmonary Embolism; Negative Chronic Obstructive Pulmonary Disease (COPD) or Asthma GENITOURINARY: Negative Renal Disease MUSCULOSKELETAL: Positive Degenerative Disk Disease ENDOCRINE: Positive Hypothyroidism; Negative Diabetes Mellitus Type 1 or Diabetes Mellitus Type 2 HEMATOLOGIC: Negative Sickle Cell Disease Surgical History SURGICAL: Positive Tonsillectomy Social History SMOKING STATUS: Current every day smoker SUBSTANCE USE: does not use ED Exam General Limitations: Present no limitations General appearance: Present alert and in no apparent distress Head Head exam: Present atraumatic, normocephalic and normal inspection Eye Eye exam: Present normal appearance, PERRL and EOMI; Absent conjunctival injection ENT ENT exam: Present normal exam, normal oropharynx and mucous membranes moist Neck Neck exam: Present normal inspection, full ROM and trachea midline Chest Chest inspection: Present normal inspection and symmetric chest wall rise Respiratory Respiratory exam: Present normal lung sounds bilaterally Cardiovascular Cardiovascular exam: Present regular rate, normal rhythm and normal heart sounds Abdominal Exam Abdominal exam: Present soft and normal bowel sounds Extremities Exam Extremities exam: Present normal inspection and full ROM Back Exam Back exam: Present normal inspection, full ROM, tenderness, muscle spasm and paraspinal tenderness; Absent CVA tenderness (R) or CVA tenderness (L) Neurological Exam Neurological exam: Present alert, oriented X3 and CN II-XII intact Psychiatric Psychiatric exam: Present normal affect and normal mood Skin Skin exam: Present warm, dry, intact and normal color Course Quality Measures none Orders Category Date Time Status Diazepam [Valium] Med 01/17/25 12:03 Discontinued 5 mg PO X1 ONE Morphine* Inj Med 01/17/25 12:03 Discontinued 4 mg IM X1 ONE Vital Signs Vital signs: Vital Signs Temperature 98.6 F 01/17/25 11:56 Pulse Rate 61 01/17/25 11:56 Respiratory Rate 18 01/17/25 11:56 Blood Pressure 154/83 H 01/17/25 11:56 Pulse Oximetry (%) 97 01/17/25 11:56 Oxygen Delivery Method Room Air 01/17/25 11:56 O2 saturation 97% room air with normal limits Back Pain / Injury MDM Narrative MDM Narrative:: 60-year-old male presents to the Emergency Department today for complaints of back pain patient reports that is acute on chronic patient reports no fever nausea or vomiting no abdominal pain no saddle anesthesia or loss of bowel or bladder. On exam patient well-appearing does not appear look toxic no acute distress Imaging obtained no acute emergent findings noted Patient pain medication per request Patient discharged home in no distress to follow-up with primary care doctor in the next 24 to 48 hours and for any worsening symptoms to return to the ER immediately Patient data External records reviewed:: [facility] previous records Clinical information provided by:: patient Social determinants that could affect healthcare access:: none Patient has the following chronic illnesses:: See history How is presenting disease/condition affected by chronic disease/condition?: caused by Evaluation data The following diagnostics were reviewed and interpreted by me:: radiology exam(s) Lab and/or radiology exams considered but not ordered:: Radiology Interpretation Summary: Reviewed by me Medications / Prescriptions Medications or Prescriptions considered but not ordered:: Given Medication administrations:: Medication Administration History Discontinued Medications Diazepam (Diazepam 5 Mg Tablet) 5 mg PO X1 ONE Stop: 01/17/25 12:04 Last Admin: 01/17/25 12:23 Dose: 5 mg Documented By: Morphine Sulfate (Morphine Sulf Inj 4 Mg/Ml Vial) 4 mg IM X1 ONE Stop: 01/17/25 12:04 Last Admin: 01/17/25 12:23 Dose: 4 mg Documented By: Given Consultations Consultation(s) initiated? (list below): No Diagnosis Differential diagnosis back pain/injury: lumbar radiculopathy, sciatica and strain of lumbar region Most likely diagnosis given after review of the tests above:: Acute on chronic back pain Admission Indicated Admission indicated?: not indicated Admission Request Was there a request for admission?: No Disposition Plan Disposition Plan: Discharge Discharge Attestation Discharge Attestation: The patient and all family members were given an opportunity to ask questions and understood the discharge instructions. Discharge instructions specifically effects, indications for sooner follow up or return to the emergency department, and the expected course of current diagnosis. Patient condition: Stable Discharge Plan Plan Patient Disposition: HOME (Self Care) Discharge Disposition comment: Stable Prescriptions/Referrals Prescriptions/Med Rec: New hydrocodone-acetaminophen 5-325 mg tablet 1 tab PO BID MDD 10 PRN (Reason: pain) Qty: 8 0RF No Action naproxen [Naprosyn] 500 mg tablet 500 mg PO BID PRN (Reason: pain) Qty: 30 0RF amoxicillin-pot clavulanate [Augmentin] 875-125 mg tablet 1 tab PO BID Qty: 20 0RF baclofen 20 mg tablet 20 mg PO TID PRN (Reason: Pain) hydrocodone-acetaminophen 5-325 mg tablet 1 tab PO TID MDD 3 PRN (Reason: pain) Qty: 20 0RF baclofen 20 mg tablet 20 mg PO TID PRN (Reason: pain) Qty: 30 0RF azithromycin 250 mg tablet See Rx Instructions .ROUTE .COMPLEX Qty: 6 0RF Rx Instructions: For 250 mg dose pack: take 500 mg today (day 1), then 250 mg for 4 days (days 2-5) albuterol sulfate 90 mcg/actuation HFA aerosol inhaler 2 puff inhalation QID PRN (Reason: shortness of breath or wheezing) Qty: 8.5 0RF dextromethorphan-guaifenesin 10-100 mg/5 mL liquid 10 ml PO Q8H PRN (Reason: cough) Qty: 500 0RF naproxen [Naprosyn] 500 mg tablet 500 mg PO BID Qty: 30 0RF hydrocodone-acetaminophen 5-325 mg tablet 1 tab PO BID MDD 2 Qty: 10 0RF ibuprofen 800 mg tablet 800 mg PO TID PRN (Reason: pain) Qty: 30 0RF hydrocodone-acetaminophen 5-325 mg tablet 1 tab PO BID MDD 10 PRN (Reason: pain) Qty: 6 0RF prednisone 50 mg tablet 50 mg PO QDAY Qty: 7 0RF methylprednisolone [Medrol (Dg)] 4 mg tablets,dose pack See Rx Instructions .ROUTE .COMPLEX Qty: 21 0RF Rx Instructions: TAKE DIRECTED ON PACK diazepam [Valium] 10 mg tablet 10 mg PO TID PRN (Reason: muscle spasm) Qty: 20 0RF diazepam [Valium] 10 mg tablet 10 mg PO TID PRN (Reason: muscle spasm) Qty: 10 0RF doxycycline monohydrate 100 mg capsule 100 mg PO BID Qty: 14 0RF apixaban 5 mg (74 tabs) tablets,dose pack 10 mg PO BID Qty: 74 0RF Rx Instructions: 2 tablets twice a day for 1 week and then 5 mg once a day diazepam [Valium] 10 mg tablet 10 mg PO BID PRN (Reason: muscle spasm) Qty: 10 0RF Problem List Clinical Impression: Acute on chronic back pain Patient/Caregiver Discharge Instructions Additional Instructions: Please follow up with your primary care doctor in the next 24-48hrs for any worsening symptoms return here immediately Print Language: Tajik Stand Alone Forms: Josiane Award Info., Work/School Release, Patient Portal Info Letter PA/SALES SERVICE [employer]OMOTER Supervising Physician PA/SALES SERVICE PROMOTER Supervising Physician: dr chiu
[2025-01-17] MEDS: DIAZEPAM 5 MG TABLET PO (12:23)
[2025-01-17] MEDS: MORPHINE SULF INJ 4 MG/ML VIAL IM (12:23)
--- NOTE | 2025-01-17 13:38 | PC.NURSE ---
CALLED PT TO ASSESS PAIN LEVEL BUT NO ANSWER. CALLED IN LOBBY AND OUTSIDE.
== END 2025-01-17 13:00 | disposition home or self-care (01) ==
LOC: SERX 12:40
PROVIDERS: Emergency Provider Nurse Practitioner Primary Care; PCP Physician Assistant Medical
DX: M54.9 Dorsalgia, unspecified (principal); G89.29 Other chronic pain
CPT/HCPCS: 96372; 99282; J2270; A9270

== ENCOUNTER 2025-02-02 18:26 | Emergency (ER) | payer MEDICAID, SELFPAY ==
[2025-02-02 18:26] VITALS: BMI 38.2
[2025-02-02 19:09] VITALS: BP 128/78; PULSE 58; RESP 19; TEMP 36.6; O2SAT 97
--- NOTE | 2025-02-02 19:22 | EDRME_ITS ---
Rapid Medical Screening Exam [facility] Arrival date/time: 02/02/25 18:26 59M with history of DVT/PE on Eliquis and chronic back pain/sciatica presents to ED with worsening pain than usual. Patient has been taking his prescribed pain meds. What's different in the past few days is some numbness in his private parts, as well as some bladder incontinence, though no bowel incontinence. Chief Complaint: Back Pain/Injury Vital signs: Vital Signs Temperature 97.9 F 02/02/25 19:09 Pulse Rate 58 L 02/02/25 19:09 Respiratory Rate 19 02/02/25 19:09 Blood Pressure 128/78 02/02/25 19:09 Pulse Oximetry (%) 97 02/02/25 19:09 Oxygen Delivery Method Room Air 02/02/25 19:09 Exam: Appears uncomfortable Clinical Impression: Back pain vs DDD vs cauda equina vs UTI vs sciatica
--- NOTE | 2025-02-02 19:22 | XR_ITS ---
Examination: CT lumbar spine, without contrast. 2-D sagittal reconstructions. 2-D coronal reconstructions. 3-D reconstructions. Date and time of exam: February 12, 2025, 195 hours INDICATIONS: Low back pain with saddle paresthesias today and beginning 1 week ago CTDI: vol (mGy): 36.5 DLP: (mGycm): 1515 Technique: Multiple 1.25 mm axial sections of the lumbar spine without intravenous contrast have been obtained. 2-D sagittal and coronal reconstructions have been obtained. 3-D reconstructions have been obtained. Low dose protocols were performed. One or more of the following dose reduction techniques were used; automated exposure control, adjustment of the mA and/or KV according to patient size, use of iterative reconstruction technique. Findings: Significant osteopenia Minimal anterolisthesis L4 on L5 Moderate disc narrowing L5-S1 No lumbar fracture L5-S1 2 mm central lumbar disc bulge contiguous with the right S1 nerve root L4-L5 moderate to severe overall spinal stenosis, axial image 104, 5 mm central paracentral disc bulge indenting ventral margin thecal sac, significant facet arthropathy and thickening of ligamentum flavum L3-L4 no disc protrusion L2-L3 no disc protrusion L1-2 no disc protrusion Probable left parapelvic cysts IMPRESSION: No lumbar fracture L5-S1 2 mm central lumbar disc bulge contiguous with the right S1 nerve. L4-L5 moderate to severe overall spinal stenosis axial image 104, including 5 mm central paracentral disc
[2025-02-02] MEDS: MORPHINE SULF LIQD 10 MG/5 ML UDC PO (19:34)
--- NOTE | 2025-02-02 22:19 | EDNOTE_ITS ---
ED Back Injury Pain RME/HPI General Chief Complaint: Back Pain/Injury Stated Complaint: SCIATICA PAIN Time Seen by Provider: 02/02/25 22:18 Arrival date/time: 02/02/25 18:26 60-year-old male patient with significant history of chronic back pain, with sciatica, came in for evaluation requesting pain medication. Patient was seen by a spine surgeon and called [facility], few weeks ago, and pending to be reevaluated. Patient was seen in this hospital several times for the same complaints. Was seen by pain management MD, and prescribed baclofen, gabapentin, which according to the patient is not working. Patient is ambulatory with help. Denies any bladder incontinence. Denies any saddle anesthesia denies any bowel incontinence. Patient came with her daughter. Denies any fever denies any recent fall or trauma. RME / HPI RME / HPI Narrative: 02/02/25 18:26 59M with history of DVT/PE on Eliquis and chronic back pain/sciatica presents to ED with worsening pain than usual. Patient has been taking his prescribed pain meds. What's different in the past few days is some numbness in his private parts, as well as some bladder incontinence, though no bowel incontinence. Exam: Appears uncomfortable Impression: Back pain vs DDD vs cauda equina vs UTI vs sciatica Related Data Home Medications ?Medication ?Instructions ?Recorded ?Confirmed baclofen 20 mg tablet 20 mg PO TID PRN Pain 12/31/20 Previous Rx's ?Medication ?Instructions ?Recorded naproxen 500 mg tablet (Naprosyn) 500 mg PO BID PRN pa in #30 tabs 03/04/20 amoxicillin 875 mg-potassium 1 tab PO BID #20 tabs clavulanate 125 mg tablet (Augmentin) baclofen 20 mg tablet 20 mg PO TID PRN pain #30 ta bs 02/23/21 albuterol sulfate 90 mcg/actuation 2 puff inhalation Q ID PRN 03/14/21 aerosol inhaler shortness of breath or wheez ing #8.5 grams azithromycin 250 mg tablet See Rx Instructions PO .COM PLEX #6 03/14/21 tabs dextromethorphan-guaifenesin 10 10 ml PO Q8H PRN cough #500 mL 03/31/21 mg-100 mg/5 mL oral liquid hydrocodone 5 mg-acetaminophen 325 1 tab PO BID #10 ta bs 10/10/21 mg tablet naproxen 500 mg tablet (Naprosyn) 500 mg PO BID #30 ta bs 10/10/21 hydrocodone 5 mg-acetaminophen 325 1 tab PO TID PRN pa in #20 tabs 10/13/21 mg tablet hydrocodone 5 mg-acetaminophen 325 1 tab PO BID PRN pa in #6 tabs 10/16/22 mg tablet ibuprofen 800 mg tablet 800 mg PO TID PRN pain #30 t abs 10/16/22 doxycycline monohydrate 100 mg 100 mg PO BID #14 caps 03/20/23 capsule apixaban 5 mg (74 tabs) tablets in 10 mg (2 x 5 mg (74 tabs)) PO BID 10/25/23 a dose pack #74 tabs prednisone 50 mg tablet 50 mg PO QDAY #7 tabs methylprednisolone 4 mg tablets in See Rx Instructions .Route 04/25/24 a dose pack (Medrol (Dg)) .COMPLEX #21 tabs diazepam 10 mg tablet (Valium) 10 mg PO TID PRN muscle spasm #20 12/16/24 tabs diazepam 10 mg tablet (Valium) 10 mg PO TID PRN muscle spasm #10 12/22/24 tabs diazepam 10 mg tablet (Valium) 10 mg PO BID PRN muscle spasm #10 01/13/25 tabs hydrocodone 5 mg-acetaminophen 325 1 tab PO BID PRN pa in #8 tabs 01/17/25 mg tablet Allergies Allergy/AdvReac Type Severity Reaction Status Date / Time No Known Allergies Allergy Verified 02/02/25 18:28 Review of Systems Review of Systems Narrative Review of Systems: Review of system reviewed and within normal limits except mentioned in HPI ED Exam Narrative Physical exam: VITAL SIGNS: Reviewed. GENERAL APPEARANCE: Alert and interactive, follows commands, no acute distress, HEAD AND FACE: Non-traumatic. ENT: PERRL, pink conjunctivitis, eyelid no trauma, Mucous membrane moist. NECK: Supple, nontender, no nuchal rigidity. CHEST: No tenderness, no crepitus, no paradoxical movement, no retractions. LUNGS: Clear, well ventilated, symmetric, no rales, no wheezing, no ronchi, no stridor, good breath sounds bilaterally. HEART: Regular rate, regular rhythm, no murmur, no gallops. ABDOMEN: Soft, positive bowel sounds, nondistended, no guarding, nontender, no rebound, no masses, RECTAL: Deferred. GENITAL: Deferred. NEUROLOGICAL: Gross motor function intact sensory function intact, Appropriate for age. MUSCULOSKELETAL: low back tenderness, full range of motion. EXTREMITIES: Nontender, full range of motion. SKIN: Color pink, dry, no rash, no lacerations, no abrasions, no contusions. LYMPHATICS: Deferred. Course Quality Measures none Orders Category Date Time Status CT lumbar spine wo con Stat Exams 02/02/25 19:22 Completed Morphine Oral LIQUID Med 02/02/25 19:22 Discontinued 10 mg PO X1 ONE Morphine* Inj Med 02/02/25 22:18 Once 4 mg IM X1 ONE Vital Signs Vital signs: Vital Signs Temperature 97.9 F 02/02/25 19:09 Pulse Rate 58 L 02/02/25 19:09 Respiratory Rate 19 02/02/25 19:09 Blood Pressure 128/78 02/02/25 19:09 Pulse Oximetry (%) 97 02/02/25 19:09 Oxygen Delivery Method Room Air 02/02/25 19:09 Back Pain / Injury MDM Narrative MDM Narrative:: 60-year-old male patient with significant history of chronic back pain, with sciatica, came in for evaluation requesting pain medication. Patient was seen by a spine surgeon and called [facility], few weeks ago, and pending to be reevaluated. Patient was seen in this hospital several times for the same complaints. Was seen by pain management MD, and prescribed baclofen, gabapentin, which according to the patient is not working. Patient is ambulatory with help. Denies any bladder incontinence. Denies any saddle anesthesia denies any bowel incontinence. Patient came with her daughter. Denies any fever denies any recent fall or trauma. CT scan of the lumbar spine showed No lumbar fracture L5-S1 2 mm central lumbar disc bulge contiguous with the right S1 nerve. L4-L5 moderate to severe overall spinal stenosis axial image 104, including 5 mm central paracentral disc Patient is asking if I can give her a morphine shot. He told me that patient is going to follow-up with his spine surgeon soon. Patient does not need further imaging patient is not showing any cauda equina syndrome. Stable for discharge home Patient data External records reviewed:: None Clinical information provided by:: patient Social determinants that could affect healthcare access:: none Patient has the following chronic illnesses:: Chronic back pain How is presenting disease/condition affected by chronic disease/condition?: exacerbated by Evaluation data The following diagnostics were reviewed and interpreted by me:: radiology exam(s) Lab and/or radiology exams considered but not ordered:: None Interpretation Summary: Stable Medications / Prescriptions Medications or Prescriptions considered but not ordered:: None Medication administrations:: Medication Administration History Discontinued Medications Morphine Sulfate (Morphine Sulf Liqd 10 Mg/5 Ml Udc) 10 mg PO X1 ONE Stop: 02/02/25 19:23 Last Admin: 02/02/25 19:34 Dose: 10 mg Documented By: OA Morphine Consultations Consultation(s) initiated? (list below): No Diagnosis Differential diagnosis back pain/injury: lumbar radiculopathy, sciatica and other (Chronic lumbar pain) Most likely diagnosis given after review of the tests above:: Chronic lumbar pain, lumbar disc disease Admission Indicated Admission indicated?: not indicated Admission Request Was there a request for admission?: No Disposition Plan Disposition Plan: Discharge Discharge Attestation Discharge Attestation: The patient and all family members were given an opportunity to ask questions and understood the discharge instructions. Discharge instructions specifically effects, indications for sooner follow up or return to the emergency department, and the expected course of current diagnosis. Patient condition: Stable Discharge Plan Plan Patient Disposition: HOME (Self Care) Discharge Disposition comment: Stable Prescriptions/Referrals Prescriptions/Med Rec: No Action naproxen [Naprosyn] 500 mg tablet 500 mg PO BID PRN (Reason: pain) Qty: 30 0RF amoxicillin-pot clavulanate [Augmentin] 875-125 mg tablet 1 tab PO BID Qty: 20 0RF baclofen 20 mg tablet 20 mg PO TID PRN (Reason: Pain) hydrocodone-acetaminophen 5-325 mg tablet 1 tab PO TID MDD 3 PRN (Reason: pain) Qty: 20 0RF baclofen 20 mg tablet 20 mg PO TID PRN (Reason: pain) Qty: 30 0RF azithromycin 250 mg tablet See Rx Instructions .ROUTE .COMPLEX Qty: 6 0RF Rx Instructions: For 250 mg dose pack: take 500 mg today (day 1), then 250 mg for 4 days (days 2-5) albuterol sulfate 90 mcg/actuation HFA aerosol inhaler 2 puff inhalation QID PRN (Reason: shortness of breath or wheezing) Qty: 8.5 0RF dextromethorphan-guaifenesin 10-100 mg/5 mL liquid 10 ml PO Q8H PRN (Reason: cough) Qty: 500 0RF naproxen [Naprosyn] 500 mg tablet 500 mg PO BID Qty: 30 0RF hydrocodone-acetaminophen 5-325 mg tablet 1 tab PO BID MDD 2 Qty: 10 0RF ibuprofen 800 mg tablet 800 mg PO TID PRN (Reason: pain) Qty: 30 0RF hydrocodone-acetaminophen 5-325 mg tablet 1 tab PO BID MDD 10 PRN (Reason: pain) Qty: 6 0RF prednisone 50 mg tablet 50 mg PO QDAY Qty: 7 0RF methylprednisolone [Medrol (Dg)] 4 mg tablets,dose pack See Rx Instructions .ROUTE .COMPLEX Qty: 21 0RF Rx Instructions: TAKE DIRECTED ON PACK diazepam [Valium] 10 mg tablet 10 mg PO TID PRN (Reason: muscle spasm) Qty: 20 0RF diazepam [Valium] 10 mg tablet 10 mg PO TID PRN (Reason: muscle spasm) Qty: 10 0RF doxycycline monohydrate 100 mg capsule 100 mg PO BID Qty: 14 0RF apixaban 5 mg (74 tabs) tablets,dose pack 10 mg PO BID Qty: 74 0RF Rx Instructions: 2 tablets twice a day for 1 week and then 5 mg once a day diazepam [Valium] 10 mg tablet 10 mg PO BID PRN (Reason: muscle spasm) Qty: 10 0RF hydrocodone-acetaminophen 5-325 mg tablet 1 tab PO BID MDD 10 PRN (Reason: pain) Qty: 8 0RF Referrals: No Primary/Family,Physician [Primary Care Provider] - In 1 week Problem List Clinical Impression: Chronic back pain, Lumbar radiculopathy Patient/Caregiver Discharge Instructions Discharge Activity: activity as tolerated Education Materials: ED Chronic Pain Additional Instructions: Thank you for the opportunity for serving you today. You are stable for discharged . You are advised to: Follow-up with your spine surgeon in 1 to 2 days Return to ED for worsening of symptoms Take your medication as prescribed your pain management MD Print Language: Mongolian Stand Alone Forms: Josiane Award Info., Patient Portal Info Letter PA/[employer] TECH[employer]ICIAN Supervising Physician PA/[employer] TECHNICIAN Supervising Physician: MD David
[2025-02-02] MEDS: MORPHINE SULF INJ 4 MG/ML VIAL IM (22:38)
== END 2025-02-02 22:47 | disposition home or self-care (01) ==
PROVIDERS: Emergency Provider Family Medicine
DX: M51.17 Intervertebral disc disorders with radiculopathy, lumbosacral region (principal); M48.061 Spinal stenosis, lumbar region without neurogenic claudication
CPT/HCPCS: 72131; 81001; 96372; 99283; J2270; A9270

== ENCOUNTER 2025-02-08 19:56 | Emergency (ER) | payer MEDICAID, SELFPAY ==
[2025-02-08 20:13] VITALS: BP 131/85; PULSE 63; RESP 18; TEMP 37.1; O2SAT 97
[2025-02-08] MEDS: HYDROmorphone INJ 2 MG/ML VIAL 1 MG IM (20:40)
[2025-02-08] MEDS: DIAZEPAM 5 MG TABLET PO (20:47)
--- NOTE | 2025-02-08 20:47 | EDNOTE_ITS ---
ED Back Injury Pain RME/HPI General Chief Complaint: General Adult/Misc Complain Stated Complaint: SCIATICA PAIN Time Seen by Provider: 02/08/25 20:24 Arrival date/time: 02/08/25 19:56 RME / HPI RME / HPI Narrative: See [facility] for Dr. Simmons's HPI Documentation. Related Data Home Medications ?Medication ?Instructions ?Recorded ?Confirmed baclofen 20 mg tablet 20 mg PO TID PRN Pain 12/31/20 Previous Rx's ?Medication ?Instructions ?Recorded naproxen 500 mg tablet (Naprosyn) 500 mg PO BID PRN pa in #30 tabs 03/04/20 amoxicillin 875 mg-potassium 1 tab PO BID #20 tabs clavulanate 125 mg tablet (Augmentin) baclofen 20 mg tablet 20 mg PO TID PRN pain #30 ta bs 02/23/21 albuterol sulfate 90 mcg/actuation 2 puff inhalation Q ID PRN 03/14/21 aerosol inhaler shortness of breath or wheez ing #8.5 grams azithromycin 250 mg tablet See Rx Instructions PO .COM PLEX #6 03/14/21 tabs dextromethorphan-guaifenesin 10 10 ml PO Q8H PRN cough #500 mL 03/31/21 mg-100 mg/5 mL oral liquid hydrocodone 5 mg-acetaminophen 325 1 tab PO BID #10 ta bs 10/10/21 mg tablet naproxen 500 mg tablet (Naprosyn) 500 mg PO BID #30 ta bs 10/10/21 hydrocodone 5 mg-acetaminophen 325 1 tab PO TID PRN pa in #20 tabs 10/13/21 mg tablet hydrocodone 5 mg-acetaminophen 325 1 tab PO BID PRN pa in #6 tabs 10/16/22 mg tablet ibuprofen 800 mg tablet 800 mg PO TID PRN pain #30 t abs 10/16/22 doxycycline monohydrate 100 mg 100 mg PO BID #14 caps 03/20/23 capsule apixaban 5 mg (74 tabs) tablets in 10 mg (2 x 5 mg (74 tabs)) PO BID 09/08/24 a dose pack #74 tabs prednisone 50 mg tablet 50 mg PO QDAY #7 tabs methylprednisolone 4 mg tablets in See Rx Instructions .Route 04/25/24 a dose pack (Medrol (Dg)) .COMPLEX #21 tabs diazepam 10 mg tablet (Valium) 10 mg PO TID PRN muscle spasm #20 12/16/24 tabs diazepam 10 mg tablet (Valium) 10 mg PO TID PRN muscle spasm #10 12/22/24 tabs diazepam 10 mg tablet (Valium) 10 mg PO BID PRN muscle spasm #10 01/13/25 tabs hydrocodone 5 mg-acetaminophen 325 1 tab PO BID PRN pa in #8 tabs 01/17/25 mg tablet diazepam 5 mg tablet (Valium) 5 mg PO TID PRN muscle s pasm #15 02/08/25 tabs prednisone 50 mg tablet 50 mg PO QDAY 5 days #5 tabs 02/08/25 Allergies Allergy/AdvReac Type Severity Reaction Status Date / Time No Known Allergies Allergy Verified 02/08/25 19:57 Review of Systems Review of Systems Systems Reviewed: All systems reviewed, normal except as documented Past Medical History Past Medical History CARDIAC: Positive Hypercholesterolemia and Deep Vein Thrombosis RESPIRATORY: Positive Pulmonary Embolism MUSCULOSKELETAL: Positive Degenerative Disk Disease ENDOCRINE: Positive Hypothyroidism Surgical History SURGICAL: Positive Tonsillectomy Social History SMOKING STATUS: Current every day smoker ED Exam Narrative Physical exam: See [facility] for Dr. Simmons's Physical Exam Documentation. Course Quality Measures none Orders Category Date Time Status Diazepam [Valium] Med 02/08/25 20:37 Discontinued 5 mg PO X1 ONE HYDROmorphone INJ [Dilaudid Inj] Med 02/08/25 20:24 Discontinued 1 mg IM X1 ONE Vital Signs Vital signs: Vital Signs Temperature 98.8 F 02/08/25 20:13 Pulse Rate 63 02/08/25 20:13 Respiratory Rate 18 02/08/25 20:13 Blood Pressure 131/85 H 02/08/25 20:13 Pulse Oximetry (%) 97 02/08/25 20:13 Oxygen Delivery Method Room Air 02/08/25 20:13 Back Pain / Injury [facility] Narrative [facility] Narrative:: This section includes all my notes and documentations, including HPI, PE, and ED course. Chu Simmons MD HPI: 60 y/o male with Sciatica here with several hours of severe low back pain radiating into the right leg. On and off numbness. No paralysis. No loss of control of the bladder or bowels. No saddle numbness. No other complaints. ROS: All negative except as documented in HPI. Physical Exam: General: Alert and oriented. In obvious pain. Eyes: Conjunctivae and lids clear. ENT: No nasal congestion. Neck: Supple. Lungs: No respiratory distress. Abdomen: Soft and nontender. Back: No spinal tenderness. Skin: Warm and dry. Neuro: Alert and oriented X 3. No peripheral motor deficits. At this point, diagnoses include: Left-sided sciatica Treatment here included: Dilaudid 1 mg IM Diazepam 5 mg PO [place] much better. Recommended more outpatient care. Based on my best medical judgment, made decision no further evaluation or treatment indicated at this time. Patient understands and agrees to the discharge instructions customized and printed, see below. Discharge Instructions from Dr. Simmons: --After evaluation, we are dealing with Sciatica (same as Lumbar Radiculopathy or Spinal Stenosis) where pinched nerve is causing your symptoms. --This condition is difficult because normal pain medications don?t work very well on nerve pain. --Despite the pain, try to resume your normal chores and activities. Because inactivity is terrible for this condition. And activity won?t make your condition worse. Use a cane of stick in your left hand to help stand and walk. --On top of your home medications, take prednisone and Valium as prescribed. --When resting and sleeping, try left sided position (with your knees to your chest and bending forward). This can take some pressure off the nerve and help your pain. --Apply ice or heat if helpful. --See a private doctor (outside the ER) on 02/10/2025 for further care. Ask to help you get more care not available here in the ER. Such as MRI imaging if needed, physical therapy, and referrals to see specialists. Some choose to have surgery for this condition. --Seek immediate medical care with paralysis in your foot, losing control of your bladder or bowels, saddle numbness (anal numbness), or with any concerns. Chu Simmons MD Patient data External records reviewed:: [facility] previous records (02/02/25 22:19 Chronic back pain) Clinical information provided by:: patient Social determinants that could affect healthcare access:: none Patient has the following chronic illnesses:: Hypercholesterolemia, Deep Vein Thrombosis, Pulmonary Embolism, Degenerative Disk Disease, Hypothyroidism How is presenting disease/condition affected by chronic disease/condition?: exacerbated by Evaluation data The following diagnostics were reviewed and interpreted by me:: other (specify) (N/A) Lab and/or radiology exams considered but not ordered:: None Interpretation Summary: None Medications / Prescriptions Medications or Prescriptions considered but not ordered:: None Medication administrations:: Medication Administration History Discontinued Medications Diazepam (Diazepam 5 Mg Tablet) 5 mg PO X1 ONE Stop: 02/08/25 20:38 Last Admin: 02/08/25 20:47 Dose: 5 mg Documented By: BD Hydromorphone HCl (Hydromorphone Inj 2 Mg/Ml Vial) 1 mg IM X1 ONE Stop: 02/08/25 20:25 Last Admin: 02/08/25 20:40 Dose: 1 mg Documented By: BD Valium 5 mg PO Dilaudid 1 mg IM Consultations Consultation(s) initiated? (list below): No Diagnosis Differential diagnosis back pain/injury: lumbar radiculopathy, sciatica and strain of lumbar region Most likely diagnosis given after review of the tests above:: Right-sided sciatica Admission Indicated Admission indicated?: not indicated Explain why admission is indicated or not indicated:: With significant improvement and no condition needing emergent intervention, th ere was no indication for admission. Admission Request Was there a request for admission?: No Disposition Plan Disposition Plan: Discharge Discharge Attestation Discharge Attestation: The patient and all family members were given an opportunity to ask questions and understood the discharge instructions. Discharge instructions specifically effects, indications for sooner follow up or return to the emergency department, and the expected course of current diagnosis. Patient condition: Stable Discharge Plan Plan Patient Disposition: HOME (Self Care) Prescriptions/Referrals Prescriptions/Med Rec: New prednisone 50 mg tablet 50 mg PO QDAY 5 Days Qty: 5 0RF diazepam [Valium] 5 mg tablet 5 mg PO TID MDD 3 PRN (Reason: muscle spasm) Qty: 15 0RF No Action naproxen [Naprosyn] 500 mg tablet 500 mg PO BID PRN (Reason: pain) Qty: 30 0RF amoxicillin-pot clavulanate [Augmentin] 875-125 mg tablet 1 tab PO BID Qty: 20 0RF baclofen 20 mg tablet 20 mg PO TID PRN (Reason: Pain) hydrocodone-acetaminophen 5-325 mg tablet 1 tab PO TID MDD 3 PRN (Reason: pain) Qty: 20 0RF baclofen 20 mg tablet 20 mg PO TID PRN (Reason: pain) Qty: 30 0RF azithromycin 250 mg tablet See Rx Instructions .ROUTE .COMPLEX Qty: 6 0RF Rx Instructions: For 250 mg dose pack: take 500 mg today (day 1), then 250 mg for 4 days (days 2-5) albuterol sulfate 90 mcg/actuation HFA aerosol inhaler 2 puff inhalation QID PRN (Reason: shortness of breath or wheezing) Qty: 8.5 0RF dextromethorphan-guaifenesin 10-100 mg/5 mL liquid 10 ml PO Q8H PRN (Reason: cough) Qty: 500 0RF naproxen [Naprosyn] 500 mg tablet 500 mg PO BID Qty: 30 0RF hydrocodone-acetaminophen 5-325 mg tablet 1 tab PO BID MDD 2 Qty: 10 0RF ibuprofen 800 mg tablet 800 mg PO TID PRN (Reason: pain) Qty: 30 0RF hydrocodone-acetaminophen 5-325 mg tablet 1 tab PO BID MDD 10 PRN (Reason: pain) Qty: 6 0RF prednisone 50 mg tablet 50 mg PO QDAY Qty: 7 0RF methylprednisolone [Medrol (Dg)] 4 mg tablets,dose pack See Rx Instructions .ROUTE .COMPLEX Qty: 21 0RF Rx Instructions: TAKE DIRECTED ON PACK diazepam [Valium] 10 mg tablet 10 mg PO TID PRN (Reason: muscle spasm) Qty: 20 0RF diazepam [Valium] 10 mg tablet 10 mg PO TID PRN (Reason: muscle spasm) Qty: 10 0RF doxycycline monohydrate 100 mg capsule 100 mg PO BID Qty: 14 0RF apixaban 5 mg (74 tabs) tablets,dose pack 10 mg PO BID Qty: 74 0RF Rx Instructions: 2 tablets twice a day for 1 week and then 5 mg once a day diazepam [Valium] 10 mg tablet 10 mg PO BID PRN (Reason: muscle spasm) Qty: 10 0RF hydrocodone-acetaminophen 5-325 mg tablet 1 tab PO BID MDD 10 PRN (Reason: pain) Qty: 8 0RF Problem List Clinical Impression: Right sided sciatica Patient/Caregiver Discharge Instructions Discharge Activity: activity as tolerated Education Materials: ED Sciatica Additional Instructions: Discharge Instructions from Dr. Simmons: --After evaluation, we are dealing with Sciatica (same as Lumbar Radiculopathy or Spinal Stenosis) where pinched nerve is causing your symptoms. --This condition is difficult because normal pain medications don?t work very well on nerve pain. --Despite the pain, try to resume your normal chores and activities. Because inactivity is terrible for this condition. And activity won?t make your condition worse. Use a cane of stick in your left hand to help stand and walk. --On top of your home medications, take prednisone and Valium as prescribed. --When resting and sleeping, try left sided position (with your knees to your chest and bending forward). This can take some pressure off the nerve and help your pain. --Apply ice or heat if helpful. --See a private doctor (outside the ER) on 02/10/2025 for further care. Ask to help you get more care not available here in the ER. Such as MRI imaging if needed, physical therapy, and referrals to see specialists. Some choose to have surgery for this condition. --Seek immediate medical care with paralysis in your foot, losing control of your bladder or bowels, saddle numbness (anal numbness), or with any concerns. Print Language: Macedonian Stand Alone Forms: Josiane Award Info., Patient Portal Info Letter
== END 2025-02-08 21:03 | disposition home or self-care (01) ==
LOC: SERX 21:02
PROVIDERS: Emergency Provider Emergency Medicine; PCP Physician Assistant Medical
DX: M54.41 Lumbago with sciatica, right side (principal)
CPT/HCPCS: 96372; 99282; J1171; A9270

== ENCOUNTER 2025-02-11 20:23 | Emergency (ER) | payer MEDICAID, SELFPAY ==
[2025-02-11 20:35] VITALS: BP 134/77; PULSE 74; RESP 18; TEMP 36.6; O2SAT 97
--- NOTE | 2025-02-11 21:16 | PD.EDBACK ---
ED Back Injury Pain RME/HPI General Chief Complaint: General Adult/Misc Complain Stated Complaint: SCIATICA PAIN Time Seen by Provider: 02/11/25 20:32 Arrival date/time: 02/11/25 20:23 This is a case of 60-year-old male with history of chronic low back pain bulging disc and sciatica came in in the emergency room due to lower back pain radiating to the lateral side of his both lower extremities patient denies any injury or trauma patient states that he has been having chronic back pain for 10 years and lost follow-up with his specialist patient denies any recent injury or trauma denies any numbness weakness tingling sensation or incontinence to urine or stool patient is fine until 2 days prior to arrival in the emergency room patient started to have pain Limitations: no limitations Related Data Home Medications ?Medication ?Instructions ?Recorded ?Confirmed baclofen 20 mg tablet 20 mg PO TID PRN Pain 12/31/20 12/31/20 Previous Rx's ?Medication ?Instructions ?Recorded naproxen 500 mg tablet (Naprosyn) 500 mg PO BID PRN pain #30 tabs 03/04/20 amoxicillin 875 mg-potassium 1 tab PO BID #20 tabs 12/30/20 clavulanate 125 mg tablet (Augmentin) baclofen 20 mg tablet 20 mg PO TID PRN pain #30 tabs 02/23/21 albuterol sulfate 90 mcg/actuation 2 puff inhalation QID PRN 03/14/21 aerosol inhaler shortness of breath or wheezing #8.5 grams azithromycin 250 mg tablet See Rx Instructions PO .COMPLEX #6 03/14/21 tabs dextromethorphan-guaifenesin 10 10 ml PO Q8H PRN cough #500 mL 03/31/21 mg-100 mg/5 mL oral liquid hydrocodone 5 mg-acetaminophen 325 1 tab PO BID #10 tabs 10/10/21 mg tablet naproxen 500 mg tablet (Naprosyn) 500 mg PO BID #30 tabs 10/10/21 hydrocodone 5 mg-acetaminophen 325 1 tab PO TID PRN pain #20 tabs 10/13/21 mg tablet hydrocodone 5 mg-acetaminophen 325 1 tab PO BID PRN pain #6 tabs 10/16/22 mg tablet ibuprofen 800 mg tablet 800 mg PO TID PRN pain #30 tabs 10/16/22 doxycycline monohydrate 100 mg 100 mg PO BID #14 caps 03/20/23 capsule apixaban 5 mg (74 tabs) tablets in 10 mg (2 x 5 mg (74 tabs)) PO BID 10/25/23 a dose pack #74 tabs prednisone 50 mg tablet 50 mg PO QDAY #7 tabs 10/25/23 methylprednisolone 4 mg tablets in See Rx Instructions .Route 04/25/24 a dose pack (Medrol (Dg)) .COMPLEX #21 tabs diazepam 10 mg tablet (Valium) 10 mg PO TID PRN muscle spasm #20 12/16/24 tabs diazepam 10 mg tablet (Valium) 10 mg PO TID PRN muscle spasm #10 12/22/24 tabs diazepam 10 mg tablet (Valium) 10 mg PO BID PRN muscle spasm #10 01/13/25 tabs hydrocodone 5 mg-acetaminophen 325 1 tab PO BID PRN pain #8 tabs 01/17/25 mg tablet diazepam 5 mg tablet (Valium) 5 mg PO TID PRN muscle spasm #15 02/08/25 tabs prednisone 50 mg tablet 50 mg PO QDAY 5 days #5 tabs 02/08/25 cyclobenzaprine 10 mg tablet 10 mg PO BID PRN muscle spasm #10 02/11/25 tabs ketorolac 10 mg tablet 10 mg PO Q8H pain #6 tabs 02/11/25 Allergies Allergy/AdvReac Type Severity Reaction Status Date / Time No Known Allergies Allergy Verified 02/11/25 20:23 Review of Systems Review of Systems Systems Reviewed: All systems reviewed, normal except as documented Past Medical History Past Medical History CARDIAC: Positive Hypercholesterolemia and Deep Vein Thrombosis; Negative Cardiac Disorders or Congestive Heart Failure RESPIRATORY: Positive Pulmonary Embolism; Negative Chronic Obstructive Pulmonary Disease (COPD) or Asthma GENITOURINARY: Negative Renal Disease MUSCULOSKELETAL: Positive Degenerative Disk Disease ENDOCRINE: Positive Hypothyroidism; Negative Diabetes Mellitus Type 1 or Diabetes Mellitus Type 2 HEMATOLOGIC: Negative Sickle Cell Disease Surgical History SURGICAL: Positive Tonsillectomy Social History SMOKING STATUS: Current every day smoker SUBSTANCE USE: does not use ED Exam General Limitations: Present no limitations General appearance: Present alert, in no apparent distress and other (Patient is awake alert oriented not in distress nontoxic looking well-hydrated well-nourished) Head Head exam: Present atraumatic Eye Eye exam: Present normal appearance, PERRL and EOMI ENT ENT exam: Present normal exam, normal oropharynx and mucous membranes moist Neck Neck exam: Present normal inspection, full ROM and trachea midline Chest Chest inspection: Present normal inspection and symmetric chest wall rise Respiratory Respiratory exam: Present normal lung sounds bilaterally Cardiovascular Cardiovascular exam: Present regular rate, normal rhythm and normal heart sounds Abdominal Exam Abdominal exam: Present soft and normal bowel sounds; Absent distention, tenderness, guarding, rebound, rigidity, diminished bowel sounds, hyperactive bowel sounds, hypoactive bowel sounds or organomegaly Extremities Exam Extremities exam: Present normal inspection and full ROM Expanded Lower Extremity Exam Hip/Pelvis exam: Present normal inspection and full ROM; Absent tenderness or swelling Upper leg exam: Present normal inspection and full ROM; Absent tenderness or swelling Knee exam: Present normal inspection and full ROM; Absent tenderness or swelling Lower leg exam: Present normal inspection, full ROM and Achilles tendon intact; Absent tenderness, swelling or Homans' sign Back Exam Back exam: Present normal inspection, full ROM, tenderness (Mild to moderate tenderness on L1 and L5 no paraspinal no paravertebral tenderness ROM intact neurovascular intact) and muscle spasm; Absent CVA tenderness (R), CVA tenderness (L), paraspinal tenderness, vertebral tenderness, rashes, sciatic notch tenderness (R), sciatic notch tenderness (L), straight leg raise (R) or straight leg raise (L) Neurological Exam Neurological exam: Present alert, oriented X3, CN II-XII intact, normal gait, reflexes normal and other (Awake alert oriented x 4 no focal deficit GCS 15/15 steady gait memory intact no slurring speech no facial droop motor or sensory reflex were all normal in all extremities negative Babinski); Absent motor sensory deficit Psychiatric Psychiatric exam: Present normal affect and normal mood Skin Skin exam: Present warm, dry, intact and normal color Course Quality Measures none Orders Category Date Time Status Ketorolac Inj [Toradol Inj] Med 02/11/25 20:44 Discontinued 60 mg IM X1 ONE Vital Signs Vital signs: Vital Signs Temperature 97.8 F 02/11/25 20:35 Pulse Rate 74 02/11/25 20:35 Respiratory Rate 18 02/11/25 20:35 Blood Pressure 134/77 H 02/11/25 20:35 Pulse Oximetry (%) 97 02/11/25 20:35 Oxygen Delivery Method Room Air 02/11/25 20:35 Oxygen saturation is 97% in room Back Pain / Injury MDM Narrative MDM Narrative:: This is a case of 60-year-old male with history of chronic low back pain bulging disc and sciatica came in in the emergency room due to lower back pain radiating to the lateral side of his both lower extremities patient denies any injury or trauma patient states that he has been having chronic back pain for 10 years and lost follow-up with his specialist patient denies any recent injury or trauma denies any numbness weakness tingling sensation or incontinence to urine or stool patient is fine until 2 days prior to arrival in the emergency room patient started to have pain physical examination patient is awake alert oriented not in distress nontoxic looking well-hydrated well-nourished vital signs stable BP stable not tachycardic not tachypneic afebrile and nonhypoxic patient noted to have moderate tenderness on L1 L5 but no crepitation no deformity no redness no swelling no paraspinal no paravertebral tenderness but with muscle spasm agrees exam is negative no CVA tenderness steady gait both lower extremities exam were normal neurological exam is also normal based on my physical examination and history patient pain is a chronic in nature no signs and symptoms of cauda equina thus there is no need to perform any imaging patient was given Toradol here in the emergency room which improved and resolved the pain patient was prescribed with Toradol for pain and muscle spasm patient will follow-up with PCP to be referred to neurosurgeon for bulging lumbar disc and sciatica and for any worsening symptoms or any emergent concern return precaution in the ER is advised Patient was discharged with comfortable condition walking with stable gait. Patient verbalized no further complains explained diagnosis and answered patient question. Patient is comfortable with the proposed management plan including the need to follow up with his/her primary care physician and any specialist if applicable Discussed patient for any urgent condition or worsening sx, He/She needed to go to emergency room immediately or call 911. Patient acknowledge the responsibility to follow up as instructed and to monitor her/his symptoms. For any persistence of the symptoms for more than 3-5 days return precaution advised. Discussed the result of the test and was given printed discharge instruction Patient data External records reviewed:: [facility] previous records Clinical information provided by:: patient Social determinants that could affect healthcare access:: none Patient has the following chronic illnesses:: None How is presenting disease/condition affected by chronic disease/condition?: no chronic disease Evaluation data The following diagnostics were reviewed and interpreted by me:: other (specify) (None) Lab and/or radiology exams considered but not ordered:: None Interpretation Summary: None Medications / Prescriptions Medications or Prescriptions considered but not ordered:: Give Medication administrations:: Medication Administration History Discontinued Medications Ketorolac Tromethamine (Ketorolac Inj 60 Mg/2 Ml Vial) 60 mg IM X1 ONE Stop: 02/11/25 20:45 Given Consultations Consultation(s) initiated? (list below): No Diagnosis Differential diagnosis back pain/injury: lumbar radiculopathy, sciatica and other (Chronic low back pain bulging disc DDD herniated) Most likely diagnosis given after review of the tests above:: Chronic low back pain with sciatica Admission Indicated Admission indicated?: not indicated Explain why admission is indicated or not indicated:: Not indicated Admission Request Was there a request for admission?: No Disposition Plan Disposition Plan: Discharge Discharge Attestation Discharge Attestation: The patient and all family members were given an opportunity to ask questions and understood the discharge instructions. Discharge instructions specifically effects, indications for sooner follow up or return to the emergency department, and the expected course of current diagnosis. Patient condition: Stable Discharge Plan Plan Patient Disposition: HOME (Self Care) Patient condition on transfer: Stable Prescriptions/Referrals Prescriptions/Med Rec: New ketorolac 10 mg tablet 10 mg PO Q8H Qty: 6 0RF Rx Instructions: maximum total duration of 5 days from all oral, intranasal, or parenteral formulations cyclobenzaprine 10 mg tablet 10 mg PO BID PRN (Reason: muscle spasm) Qty: 10 0RF No Action naproxen [Naprosyn] 500 mg tablet 500 mg PO BID PRN (Reason: pain) Qty: 30 0RF amoxicillin-pot clavulanate [Augmentin] 875-125 mg tablet 1 tab PO BID Qty: 20 0RF baclofen 20 mg tablet 20 mg PO TID PRN (Reason: Pain) hydrocodone-acetaminophen 5-325 mg tablet 1 tab PO TID MDD 3 PRN (Reason: pain) Qty: 20 0RF baclofen 20 mg tablet 20 mg PO TID PRN (Reason: pain) Qty: 30 0RF azithromycin 250 mg tablet See Rx Instructions .ROUTE .COMPLEX Qty: 6 0RF Rx Instructions: For 250 mg dose pack: take 500 mg today (day 1), then 250 mg for 4 days (days 2-5) albuterol sulfate 90 mcg/actuation HFA aerosol inhaler 2 puff inhalation QID PRN (Reason: shortness of breath or wheezing) Qty: 8.5 0RF dextromethorphan-guaifenesin 10-100 mg/5 mL liquid 10 ml PO Q8H PRN (Reason: cough) Qty: 500 0RF naproxen [Naprosyn] 500 mg tablet 500 mg PO BID Qty: 30 0RF hydrocodone-acetaminophen 5-325 mg tablet 1 tab PO BID MDD 2 Qty: 10 0RF ibuprofen 800 mg tablet 800 mg PO TID PRN (Reason: pain) Qty: 30 0RF hydrocodone-acetaminophen 5-325 mg tablet 1 tab PO BID MDD 10 PRN (Reason: pain) Qty: 6 0RF prednisone 50 mg tablet 50 mg PO QDAY Qty: 7 0RF methylprednisolone [Medrol (Dg)] 4 mg tablets,dose pack See Rx Instructions .ROUTE .COMPLEX Qty: 21 0RF Rx Instructions: TAKE DIRECTED ON PACK diazepam [Valium] 10 mg tablet 10 mg PO TID PRN (Reason: muscle spasm) Qty: 20 0RF diazepam [Valium] 10 mg tablet 10 mg PO TID PRN (Reason: muscle spasm) Qty: 10 0RF prednisone 50 mg tablet 50 mg PO QDAY 5 Days Qty: 5 0RF diazepam [Valium] 5 mg tablet 5 mg PO TID MDD 3 PRN (Reason: muscle spasm) Qty: 15 0RF doxycycline monohydrate 100 mg capsule 100 mg PO BID Qty: 14 0RF apixaban 5 mg (74 tabs) tablets,dose pack 10 mg PO BID Qty: 74 0RF Rx Instructions: 2 tablets twice a day for 1 week and then 5 mg once a day diazepam [Valium] 10 mg tablet 10 mg PO BID PRN (Reason: muscle spasm) Qty: 10 0RF hydrocodone-acetaminophen 5-325 mg tablet 1 tab PO BID MDD 10 PRN (Reason: pain) Qty: 8 0RF Problem List Clinical Impression: Chronic back pain, Bulging lumbar disc, Sciatica Patient/Caregiver Discharge Instructions Education Materials: Common Spine and Disk Problems, ED Back Pain (Acute or Chronic), ED Chronic Pain, ED Degenerative Disk Disease, ED Sciatica Additional Instructions: Follow-up with your primary care physician in 2 days for reevaluation worsening symptoms or any emergent concerns such as numbness weakness tingling sensation incontinence to urine or stool return to the emergency room immediately or call 911 take your medication as directed ice pack and warm compress as needed for pain it is very important to see a neurosurgeon for your chronic low back pain and sciatica and pain management doctor for pain control take the medications with food and do not take prednisone and Toradol at the same time Print Language: Greenlandic Stand Alone Forms: Josiane Award Info., Patient Portal Info Letter PA/AGRONOMY SUPERVISOR Supervising Physician PA/AGRONOMY SUPERVISOR Supervising Physician: Dr. Amber Monte
[2025-02-11] MEDS: KETOROLAC INJ 60 MG/2 ML VIAL IM (21:32)
== END 2025-02-11 21:40 | disposition home or self-care (01) ==
PROVIDERS: Emergency Provider Emergency Medicine; PCP Physician Assistant Medical
DX: M51.16 Intervertebral disc disorders with radiculopathy, lumbar region (principal)
CPT/HCPCS: 96372; 99282; J1885